=== PATIENT | male | born 1955 | race Caucasian/White ===

== ENCOUNTER → 2017-09-13 06:40 | Outpatient (CLI) | payer OTHER, SELFPAY ==
[2017-09-13 09:14] LABS: Alanine Aminotransferase 26 IU/L (21-72); Albumin 4.5 g/dL (3.5-5.0); Albumin Globulin Ratio 1.6 (1.0-2.8); Alkaline Phosphatase 52 U/L (38-126); Aspartate Aminotransferase 22 IU/L (17-59); BUN Creatinine Ratio 17.8 (6-22); Bilirubin Total 0.4 mg/dL (0.2-1.3); Blood Urea Nitrogen 16 mg/dL (9-20); Calcium 9.5 mg/dL (8.4-10.2); Carbon Dioxide 25 mmol/L (22-32); Chloride 100 mmol/L (98-107); Estimated Glomerular Filt Rate > 60.0 mL/min (>60); Globulin 2.8 g/dL (1.7-4.1); Glucose 139 mg/dL (80-110); HEMOLYSIS < 15 (0-50); Potassium 4.7 mmol/L (3.4-5.1); Sodium 136 mmol/L (137-145); Total Protein 7.3 g/dL (6.3-8.2)
[2017-09-13 11:36] LABS: Hemoglobin A1C% w Est Avg Glu 5.7 % (4.0-6.0)
== END ==
PROVIDERS: PCP Internal Medicine; Visit Provider Internal Medicine
DX: E78.2 Mixed hyperlipidemia (principal); E11.65 Type 2 diabetes mellitus with hyperglycemia
CPT/HCPCS: 36415; 80053; 83036

== ENCOUNTER → 2018-02-02 06:46 | Outpatient (CLI) | payer OTHER, SELFPAY ==
[2018-02-02 08:12] LABS: Alanine Aminotransferase 26 IU/L (21-72); Albumin 4.8 g/dL (3.5-5.0); Alkaline Phosphatase 50 U/L (38-126); Aspartate Aminotransferase 22 IU/L (17-59); BUN Creatinine Ratio 12.9 (6-22); Bilirubin Total 0.6 mg/dL (0.2-1.3); Blood Urea Nitrogen 9 mg/dL (9-20); Calcium 9.9 mg/dL (8.4-10.2); Carbon Dioxide 26 mmol/L (22-32); Chloride 98 mmol/L (98-107); Estimated Glomerular Filt Rate > 60.0 mL/min (>60); Globulin 2.4 g/dL (1.7-4.1); Glucose 107 mg/dL (80-110); HEMOLYSIS < 15 (0-50); Hemoglobin A1C% w Est Avg Glu 7.5 % (4.0-6.0); Sodium 136 mmol/L (137-145); Total Protein 7.2 g/dL (6.3-8.2)
== END ==
PROVIDERS: PCP Internal Medicine; Visit Provider Internal Medicine
DX: E11.9 Type 2 diabetes mellitus without complications (principal)
CPT/HCPCS: 36415; 80053; 83036

== ENCOUNTER → 2018-05-03 06:43 | Outpatient (CLI) | payer OTHER, SELFPAY ==
[2018-05-03 08:36] LABS: Hemoglobin A1C% w Est Avg Glu 6.6 % (4.0-6.0)
[2018-05-03 08:49] LABS: Blood Urea Nitrogen 9 mg/dL (9-20); Calcium 9.5 mg/dL (8.4-10.2); Carbon Dioxide 25 mmol/L (22-32); Chloride 100 mmol/L (98-107); Estimated Glomerular Filt Rate > 60.0 mL/min (>60); Glucose 121 mg/dL (80-110); HEMOLYSIS < 15 (0-50); Potassium 4.4 mmol/L (3.4-5.1); Sodium 136 mmol/L (137-145)
== END ==
PROVIDERS: PCP Internal Medicine; Visit Provider Internal Medicine
DX: E11.65 Type 2 diabetes mellitus with hyperglycemia (principal); I10 Essential (primary) hypertension
CPT/HCPCS: 36415; 80048; 83036

== ENCOUNTER 2018-06-25 07:28 | Day surgery (SDC) | payer OTHER, SELFPAY ==
[2018-06-25] MEDS: SODIUM CHLORIDE 0.9% 1,000 ML 200 ML IV (07:50)
[2018-06-25 07:51] VITALS: BP 150/83; PULSE 76; RESP 16; TEMP 36.3; O2SAT 100; BMI 20.8
--- NOTE | 2018-06-25 08:40 | PM.HP.1 ---
History of Present Illness Date Patient Seen: 06/25/18 Time Patient Seen: 08:40 Chief complaint: [id number] Narrative: 63yo M for low risk screening colonoscopy. Says he had trouble with the prep as he is not used to the volume of liquid. He never plans to do this again because it is such a pain. Had a scope around 10 years ago and thinks they were unable to complete it due to diverticulosis but is unsure. No symptoms, no family h/o CRC. Patient History Medical History Seasonal allergies (Acute) Diabetes mellitus (Chronic) Diverticular disease (Chronic) Hyperlipidemia (Chronic) Hypertension (Chronic) Surgical History H/O umbilical hernia repair (Acute) History of colonoscopy (Acute) Status post tonsillectomy and adenoidectomy Social History household members: spouse Smoking Status: Current every day smoker Family & Social History Social History: household members spouse Tobacco & Substance use: Smoking Status Current every day smoker Meds Home Medications Medication Instructions Recorded Confirmed Type aspirin 81 mg tablet,delayed 81 mg PO DAILY #180 tab 03/07/18 06/25/18 Rx release atorvastatin 80 mg tablet 80 mg PO QDAY #180 tab 03/07/18 06/25/18 Rx lisinopril 10 mg tablet 10 mg PO QDAY #180 tab 03/07/18 06/25/18 Rx metformin 1,000 mg tablet 1,000 mg PO BIDCC #360 tab 03/07/18 06/25/18 Rx hydrocodone 5 mg-acetaminophen 325 1 - 2 tab PO Q4H PRN #60 tab 05/29/18 06/25/18 Rx mg tablet Allergies Allergy/AdvReac Type Severity Reaction Status Date / Time No Known Allergies Allergy Unknown Verified 06/25/18 08:04 [NO KNOWN ALLERGIES] Review of Systems Constitutional Constitutional: Reports as per HPI Exam Vital Signs (past 8 hours): - 06/25/18 07:51 Temperature 97.4 F L Pulse Rate 76 Respiratory Rate 16 Blood Pressure 150/83 H Pulse Oximetry 100 Oxygen Delivery Method Room Air Narrative Exam Narrative: AAO, NAD, male of healthy weight EOMI, MMM unlabored RA soft, nt/nd MAEW Assessment & Plan Assessment & Plan narrative: low risk screening colonoscopy --> all R/B/A discussed and pt wishes to proceed - if prep and/ or severe diverticulosis do confound the exam, I assured pt we will stop rather than risk injury
[2018-06-25] MEDS: GLUCAGON,HUMAN RECOMBINANT 1 MG/ML VIAL IV (09:06)
[2018-06-25] MEDS: MIDAZOLAM 5 MG/5 ML VIAL IV (09:16)
[2018-06-25] MEDS: fentaNYL 250 MCG/5 ML INJ IV (09:16)
[2018-06-25 09:18] VITALS: BP 151/70; PULSE 72; RESP 13; TEMP 36.4; O2SAT 98
[2018-06-25 09:23] VITALS: BP 133/72; PULSE 71; RESP 13; O2SAT 98
--- NOTE | 2018-06-25 09:23 | SUR.PHASEI ---
bedside report given to JADIEL Navarrete. transferred care of pt to JADIEL Navarrete at this time.
[2018-06-25 09:28] VITALS: BP 131/66; PULSE 70; RESP 23; O2SAT 98
[2018-06-25 09:35] VITALS: BP 137/73; PULSE 69; TEMP 37; O2SAT 98
--- NOTE | 2018-06-25 11:24 | PM.OP.ENDO ---
Operative Date/Time/Diagnoses Date of procedure: 06/25/18 Time of procedure: 09:20 Pre-op diagnosis: low risk screening colonoscopy Post-op diagnosis: other (flexible sigmoidoscopy) Procedure & Clinicians Study performed: Flexible Sigmoidoscopy Same procedure as scheduled: Yes Indications: 63yo M with over 10 years since last screening colonoscopy. He says he had trouble with the prep and was not able to take nearly all of it in. He also says at his last scope he thinks they had to abort due to diverticulosis. Surgeon: Keren Jane Procedure Notes SCOAP/Timeout: 843 Procedure in detail: After obtaining informed consent, the patient was brought to the GI suite and placed in the left lateral decubitus position on the examination table. After placement of appropriate monitors, the patient was given incremental doses of Versed and Fentanyl until an appropriate level of sedation was achieved. A time out was held per SCOAP protocol. A digital rectal examination was performed and did not reveal any masses or obstructing lesions. The colonoscope was gently passed into the patient's anus. Prep was poor and the cummins were coated with semi-solid stool. Pt had significant spasm of his anal sphincter and colon which made progress difficult. We also encountered severe diverticulosis in the sigmoid colon. Glucagon was administered but did little to help the spasm. After prolonged attempts, the procedure was aborted due to concerns for safety and ability to adequately complete the procedure. At the level of the rectal vault, the scope was retroflexed and the internal anal canal was examined. The scope was straightened and air aspirated from the colon. The instrument was removed from the patient's body and the procedure was concluded. Radiology was called to request a same-day barium enema but they declined. The patient was allowed to awaken from sedation without difficulty and taken to the post-anesthesia care unit in good condition. Scope withdrawal time: n/a Sedation minutes: 28 Findings: diverticulosis (severe, sigmoid colon) Specimen(s): none sent Complications: none Impression: 1. severe diverticulosis of the sigmoid colon 2. inadequate prep 3. unable to safely or effectively proceed with colonoscopy Recommendations: Colonscopy in 1 year (I doubt pt will comply and given two aborted scopes the best option may be a BE.) and High fiber diet Follow up: weeks (2) Disposition: PACU
== END 2018-06-25 09:45 | disposition home or self-care (01) ==
PROVIDERS: PCP Internal Medicine; Visit Provider Surgery
PROC: 0DJD8ZZ Inspection of Lower Intestinal Tract, Via Natural or Artificial Opening Endoscopic (ICD-10-PCS; CPT 45378; principal; 2018-06-25 08:45)
DX: Z12.11 Encounter for screening for malignant neoplasm of colon (principal); Z53.09 Procedure and treatment not carried out because of other contraindication; K57.30 Diverticulosis of large intestine without perforation or abscess without bleeding; E11.9 Type 2 diabetes mellitus without complications; E78.5 Hyperlipidemia, unspecified; I10 Essential (primary) hypertension; F17.210 Nicotine dependence, cigarettes, uncomplicated; Z79.84 Long term (current) use of oral hypoglycemic drugs
CPT/HCPCS: 45378; 45330; 99152; 99153; J1610; J2250; J3010

== ENCOUNTER → 2018-08-07 06:45 | Outpatient (CLI) | payer OTHER, SELFPAY ==
[2018-08-07 08:55] LABS: Alanine Aminotransferase 23 IU/L (21-72); Albumin 4.5 g/dL (3.5-5.0); Albumin Globulin Ratio 1.8 (1.0-2.8); Alkaline Phosphatase 50 U/L (38-126); Aspartate Aminotransferase 22 IU/L (17-59); Bilirubin Total 0.6 mg/dL (0.2-1.3); Blood Urea Nitrogen 12 mg/dL (9-20); Carbon Dioxide 29 mmol/L (22-32); Chloride 100 mmol/L (98-107); Cholesterol 115 mg/dL (140-199); Estimated Glomerular Filt Rate > 60.0 mL/min (>60); Globulin 2.5 g/dL (1.7-4.1); Glucose 139 mg/dL (80-110); HDL Cholesterol 44 mg/dL (40-60); HEMOLYSIS < 15 (0-50); LDL Cholesterol Calculated 58 mg/dL (<100); Potassium 4.9 mmol/L (3.4-5.1); Sodium 136 mmol/L (137-145); Triglycerides 66 mg/dL (35-150)
[2018-08-07 09:03] LABS: Prostate Specific Antigen Scrn 0.493 ng/mL (0.1-4.0)
[2018-08-07 10:11] LABS: Hemoglobin A1C% w Est Avg Glu 6.6 % (4.0-6.0)
== END ==
PROVIDERS: PCP Internal Medicine; Visit Provider Internal Medicine
DX: E11.65 Type 2 diabetes mellitus with hyperglycemia (principal); I10 Essential (primary) hypertension; E78.2 Mixed hyperlipidemia; Z12.5 Encounter for screening for malignant neoplasm of prostate
CPT/HCPCS: 36415; 80053; 80061; 83036; G0103

== ENCOUNTER → 2019-01-21 06:50 | Outpatient (CLI) | payer MEDICARE, OTHER, SELFPAY ==
[2019-01-21 07:55] LABS: Hemoglobin A1C% w Est Avg Glu 7.4 % (4.0-6.0)
[2019-01-21 08:20] LABS: BUN Creatinine Ratio 11.4 (6-22); Blood Urea Nitrogen 8 mg/dL (9-20); Calcium 10.2 mg/dL (8.4-10.2); Carbon Dioxide 28 mmol/L (22-32); Chloride 97 mmol/L (98-107); Estimated Glomerular Filt Rate > 60.0 mL/min (>60); Glucose 130 mg/dL (80-110); HEMOLYSIS < 15 (0-50); Potassium 4.8 mmol/L (3.4-5.1); Sodium 135 mmol/L (137-145)
== END ==
PROVIDERS: PCP Internal Medicine; Visit Provider Internal Medicine
DX: E11.65 Type 2 diabetes mellitus with hyperglycemia (principal); I10 Essential (primary) hypertension; K57.30 Diverticulosis of large intestine without perforation or abscess without bleeding
CPT/HCPCS: 36415; 80048; 83036

== ENCOUNTER → 2019-04-18 06:50 | Outpatient (CLI) | payer MEDICARE, OTHER, SELFPAY ==
[2019-04-18 07:48] LABS: BUN Creatinine Ratio 14.3 (6-22); Blood Urea Nitrogen 10 mg/dL (9-20); Calcium 9.8 mg/dL (8.4-10.2); Carbon Dioxide 26 mmol/L (22-32); Chloride 98 mmol/L (98-107); Estimated Glomerular Filt Rate > 60.0 mL/min (>60); Glucose 157 mg/dL (80-110); HEMOLYSIS < 15 (0-50); Hemoglobin A1C% w Est Avg Glu 7.4 % (4.0-6.0); Potassium 4.8 mmol/L (3.4-5.1); Sodium 135 mmol/L (137-145)
== END ==
PROVIDERS: PCP Internal Medicine; Referring Provider Internal Medicine; Visit Provider Internal Medicine
DX: E11.65 Type 2 diabetes mellitus with hyperglycemia (principal)
CPT/HCPCS: 36415; 80048; 83036

== ENCOUNTER → 2019-08-23 06:41 | Outpatient (CLI) | payer MEDICARE, OTHER, SELFPAY ==
[2019-08-23 08:30] LABS: Hemoglobin A1C% w Est Avg Glu 7.5 % (4.0-6.0)
[2019-08-23 08:35] LABS: Alanine Aminotransferase 15 IU/L (<50); Albumin 4.5 g/dL (3.5-5.0); Albumin Globulin Ratio 1.7 (1.0-2.8); Alkaline Phosphatase 58 U/L (38-126); Aspartate Aminotransferase 25 IU/L (17-59); BUN Creatinine Ratio 23.9 (6-22); Bilirubin Total 0.5 mg/dL (0.2-1.3); Blood Urea Nitrogen 17 mg/dL (9-20); Calcium 9.6 mg/dL (8.4-10.2); Carbon Dioxide 27 mmol/L (22-32); Chloride 98 mmol/L (98-107); Cholesterol 115 mg/dL (140-199); Estimated Glomerular Filt Rate > 60.0 mL/min (>60); Globulin 2.7 g/dL (1.7-4.1); Glucose 144 mg/dL (80-110); HDL Cholesterol 34 mg/dL (40-60); HEMOLYSIS < 15 (0-50); LDL Cholesterol Calculated 67 mg/dL (<100); Potassium 4.5 mmol/L (3.4-5.1); Sodium 133 mmol/L (137-145); Total Protein 7.2 g/dL (6.3-8.2); Triglycerides 71 mg/dL (35-150)
== END ==
PROVIDERS: PCP Internal Medicine; Referring Provider Internal Medicine; Visit Provider Internal Medicine
DX: Z12.5 Encounter for screening for malignant neoplasm of prostate (principal); E11.65 Type 2 diabetes mellitus with hyperglycemia; E78.2 Mixed hyperlipidemia; I10 Essential (primary) hypertension
CPT/HCPCS: 36415; 80053; 80061; 83036; G0103

== ENCOUNTER → 2019-11-22 06:48 | Outpatient (CLI) | payer MEDICARE, OTHER, SELFPAY ==
[2019-11-22 08:17] LABS: Hemoglobin A1C% w Est Avg Glu 7.6 % (4.0-6.0)
[2019-11-22 08:23] LABS: BUN Creatinine Ratio 16.4 (6-22); Blood Urea Nitrogen 11 mg/dL (9-20); Calcium 10.2 mg/dL (8.4-10.2); Carbon Dioxide 28 mmol/L (22-32); Chloride 100 mmol/L (98-107); Estimated Glomerular Filt Rate > 60.0 mL/min (>60); Glucose 140 mg/dL (80-110); HEMOLYSIS < 15 (0-50); Potassium 5.2 mmol/L (3.4-5.1); Sodium 137 mmol/L (137-145)
== END ==
PROVIDERS: PCP Internal Medicine; Referring Provider Internal Medicine; Visit Provider Internal Medicine
DX: E11.9 Type 2 diabetes mellitus without complications (principal)
CPT/HCPCS: 36415; 80048; 83036

== ENCOUNTER → 2019-12-13 13:42 | Outpatient (CLI) | payer MEDICARE, OTHER, SELFPAY ==
--- NOTE | 2019-12-13 13:45 | DI.RAD.S_ITS ---
PROCEDURE: XR HIP W PEL IF DONE LT 2V INDICATIONS: L hip pain TECHNIQUE: AP pelvis with lateral view(s) of the left hip(s). COMPARISON: None. FINDINGS: Bones: No fractures or dislocations. Pelvic ring appears intact. No suspicious bony lesions. There is mild bilateral hip joint space narrowing. Soft tissues: The visualized bowel gas pattern is normal. No suspicious soft tissue calcifications. IMPRESSION: Mild bilateral hip osteoarthritis. Dictated by: Sharyn Torres M.D. on 12/13/2019 at 15:13 Approved by: Sharyn Torres M.D. on 12/13/2019 at 15:14
== END ==
PROVIDERS: PCP Internal Medicine; Referring Provider Internal Medicine; Visit Provider Internal Medicine
DX: M25.552 Pain in left hip (principal); M16.0 Bilateral primary osteoarthritis of hip
CPT/HCPCS: 73502

== ENCOUNTER → 2020-02-10 06:41 | Outpatient (CLI) | payer MEDICARE, OTHER, SELFPAY ==
[2020-02-10 08:33] LABS: Hemoglobin A1C% w Est Avg Glu 7.4 % (4.0-6.0)
[2020-02-10 09:03] LABS: BUN Creatinine Ratio 18.6 (6-22); Blood Urea Nitrogen 13 mg/dL (9-20); Calcium 9.6 mg/dL (8.4-10.2); Carbon Dioxide 30 mmol/L (22-32); Chloride 101 mmol/L (98-107); Estimated Glomerular Filt Rate > 60.0 mL/min (>60); Glucose 136 mg/dL (80-110); HEMOLYSIS < 15 (0-50); Potassium 4.4 mmol/L (3.4-5.1); Sodium 134 mmol/L (137-145)
== END ==
PROVIDERS: PCP Internal Medicine; Referring Provider Internal Medicine; Visit Provider Internal Medicine
DX: E11.65 Type 2 diabetes mellitus with hyperglycemia (principal)
CPT/HCPCS: 36415; 80048; 83036

== ENCOUNTER → 2020-06-22 06:48 | Outpatient (CLI) | payer MEDICARE, OTHER, SELFPAY ==
[2020-06-22 08:19] LABS: BUN Creatinine Ratio 19.7 (6-22); Blood Urea Nitrogen 13 mg/dL (9-20); Calcium 10.6 mg/dL (8.4-10.2); Carbon Dioxide 28 mmol/L (22-32); Chloride 100 mmol/L (98-107); Estimated Glomerular Filt Rate > 60.0 mL/min (>60); Glucose 168 mg/dL (80-110); HEMOLYSIS < 15 (0-50); Sodium 135 mmol/L (137-145)
[2020-06-22 08:20] LABS: Hemoglobin A1C% w Est Avg Glu 8.4 % (4.0-6.0)
[2020-06-22 08:21] LABS: Potassium 5.4 mmol/L (3.4-5.1)
== END ==
PROVIDERS: PCP Internal Medicine; Referring Provider Internal Medicine; Visit Provider Internal Medicine
DX: E11.65 Type 2 diabetes mellitus with hyperglycemia (principal); I10 Essential (primary) hypertension
CPT/HCPCS: 36415; 80048; 83036

== ENCOUNTER → 2020-09-18 06:43 | Outpatient (CLI) | payer MEDICARE, OTHER, SELFPAY ==
[2020-09-18 08:59] LABS: Hemoglobin A1C% w Est Avg Glu 7.8 % (4.0-6.0)
[2020-09-18 09:03] LABS: Alanine Aminotransferase 19 IU/L (<50); Albumin 4.5 g/dL (3.5-5.0); Albumin Globulin Ratio 1.6 (1.0-2.8); Alkaline Phosphatase 57 U/L (38-126); Aspartate Aminotransferase 32 IU/L (17-59); BUN Creatinine Ratio 23.6 (6-22); Bilirubin Total 0.6 mg/dL (0.2-1.3); Blood Urea Nitrogen 17 mg/dL (9-20); Calcium 9.9 mg/dL (8.4-10.2); Carbon Dioxide 26 mmol/L (22-32); Chloride 100 mmol/L (98-107); Cholesterol 118 mg/dL (140-199); Estimated Glomerular Filt Rate > 60.0 mL/min (>60); Globulin 2.8 g/dL (1.7-4.1); Glucose 136 mg/dL (80-110); HDL Cholesterol 39 mg/dL (40-60); HEMOLYSIS < 15 (0-50); LDL Cholesterol Calculated 64 mg/dL (<100); Potassium 4.9 mmol/L (3.4-5.1); Sodium 133 mmol/L (137-145); Total Protein 7.3 g/dL (6.3-8.2); Triglycerides 77 mg/dL (35-150)
[2020-09-18 09:36] LABS: Prostate Specific Antigen Scrn 0.524 ng/mL (0.1-4.0)
== END ==
PROVIDERS: PCP Internal Medicine; Referring Provider Internal Medicine; Visit Provider Internal Medicine
DX: E11.65 Type 2 diabetes mellitus with hyperglycemia (principal); I10 Essential (primary) hypertension; Z12.5 Encounter for screening for malignant neoplasm of prostate; E78.2 Mixed hyperlipidemia
CPT/HCPCS: 36415; 80053; 80061; 83036; G0103

== ENCOUNTER → 2020-12-21 06:56 | Outpatient (CLI) | payer MEDICARE, OTHER, SELFPAY ==
[2020-12-21 08:05] LABS: Hemoglobin A1C% w Est Avg Glu 7.6 % (4.0-6.0)
[2020-12-21 08:12] LABS: BUN Creatinine Ratio 16.7 (6-22); Blood Urea Nitrogen 11 mg/dL (9-20); Calcium 9.8 mg/dL (8.4-10.2); Carbon Dioxide 27 mmol/L (22-32); Chloride 100 mmol/L (98-107); Estimated Glomerular Filt Rate > 60.0 mL/min (>60); Glucose 150 mg/dL (80-110); HEMOLYSIS < 15 (0-50); Potassium 5.2 mmol/L (3.4-5.1); Sodium 134 mmol/L (137-145)
== END ==
PROVIDERS: PCP Internal Medicine; Referring Provider Internal Medicine; Visit Provider Internal Medicine
DX: E11.65 Type 2 diabetes mellitus with hyperglycemia (principal)
CPT/HCPCS: 36415; 80048; 83036

== ENCOUNTER → 2021-03-31 07:01 | Outpatient (CLI) | payer MEDICARE, OTHER, SELFPAY ==
[2021-03-31 08:28] LABS: Alanine Aminotransferase 19 IU/L (<50); Albumin 4.3 g/dL (3.5-5.0); Albumin Globulin Ratio 1.7 (1.0-2.8); Alkaline Phosphatase 48 U/L (38-126); Aspartate Aminotransferase 28 IU/L (17-59); BUN Creatinine Ratio 17.9 (6-22); Bilirubin Total 0.7 mg/dL (0.2-1.3); Blood Urea Nitrogen 12 mg/dL (9-20); Calcium 10.2 mg/dL (8.4-10.2); Carbon Dioxide 29 mmol/L (22-32); Chloride 98 mmol/L (98-107); Cholesterol 99 mg/dL (140-199); Estimated Glomerular Filt Rate > 60.0 mL/min (>60); Globulin 2.5 g/dL (1.7-4.1); Glucose 137 mg/dL (80-110); HDL Cholesterol 27 mg/dL (40-60); HEMOLYSIS < 15 (0-50); LDL Cholesterol Calculated 52 mg/dL (<100); Potassium 4.6 mmol/L (3.4-5.1); Sodium 132 mmol/L (137-145); Total Protein 6.8 g/dL (6.3-8.2); Triglycerides 101 mg/dL (35-150)
== END ==
PROVIDERS: PCP Internal Medicine; Referring Provider Internal Medicine; Visit Provider Internal Medicine
DX: E11.65 Type 2 diabetes mellitus with hyperglycemia (principal); I10 Essential (primary) hypertension; E78.2 Mixed hyperlipidemia
CPT/HCPCS: 36415; 80053; 80061; 83036

== ENCOUNTER → 2021-06-21 06:36 | Outpatient (CLI) | payer MEDICARE, OTHER, SELFPAY ==
[2021-06-21 09:28] LABS: Hemoglobin A1C% w Est Avg Glu 8.4 % (4.0-6.0)
[2021-06-21 09:39] LABS: BUN Creatinine Ratio 18.2 (6-22); Blood Urea Nitrogen 12 mg/dL (9-20); Calcium 9.4 mg/dL (8.4-10.2); Carbon Dioxide 26 mmol/L (22-32); Chloride 101 mmol/L (98-107); Estimated Glomerular Filt Rate > 60 mL/min (>60); Glucose 153 mg/dL (80-110); HEMOLYSIS < 15 (0-50); Potassium 4.7 mmol/L (3.4-5.1); Sodium 133 mmol/L (137-145)
== END ==
PROVIDERS: PCP Internal Medicine; Referring Provider Internal Medicine; Visit Provider Internal Medicine
DX: E11.9 Type 2 diabetes mellitus without complications (principal); I10 Essential (primary) hypertension; E78.2 Mixed hyperlipidemia
CPT/HCPCS: 36415; 80048; 83036

== ENCOUNTER → 2021-08-04 10:37 | Outpatient (CLI) | payer MEDICARE, OTHER, SELFPAY ==
--- NOTE | 2021-08-11 13:33 | DIAB.MNT ---
Initial Diabetes Medical Nutrition Therapy Assessment Name: Roger Roa Date: 08/04/21 Time: 11-9940a Provider: Yamile Dx: Type II Diabetes Preferred Learning Style: Listening, Watching, Reading Warren presents for initial visit regarding T2DM. States he has had DM for around 10 years. No reported FH of DM. Last hgA1c increased from 8% to 8.4%. Reports sometimes skipping Metformin, forgetting. This results in increased urination. Endorses current smoker (cigarettes). Reports needing help with diet. States he and his do not like to cook. High frequency of frozen and take out meals. Limited vegetable intake. Barrier is dentition. Has dentures. Finds it difficult to eat raw veggies. Veg must be soft, well cooked. Has lost significant wt since removal of teeth approx 6 years ago. UBW was 185# prior. Current wt 132#. Does not seem worried about wt loss. Diet Recall: 10a: banana or cereal with double sf mocha 12p: Keto bread sandwich 530p: pasta x 1.5c with prawns ; hamburger sn: +/- small bowl of chips or cheetos Beverages: 32oz coffee, 1-2 stevia sodas, no water Anthropometrics: Ht: 5'7 Wt: 132# Physical Activity: averages 6,000 steps per day. Use to get much more activity when he was walking golf course regularly. Now does not golf as often due to hip pain. Self-Monitoring Blood Glucose: None Diabetes Medications: Metformin 1000mg BID Pertinent Labs: HgA1c 8.4% 06/2021 Past Medical History: (Last Updated 07/17/19 @ 10:33 by Aristides Ovalle MD) BPH w urinary obs/LUTS Diverticular disease H/O umbilical hernia repair History of colonoscopy Hyperlipidemia Hypertension Insomnia Seasonal allergies Nutrition Rx: Plate Method Nutrition Diagnosis: - inadequate fiber intake r/t dentition and nutrition knowledge deficit aeb diet recall and pt report of limited whole grains and veggies - inadequate fluid intake r/t stage of change aeb diet recall indicating limited water - Suboptimal physical activity r/t hip pain as a barrier to usual activity aeb pt report - Self monitoring deficit r/t no rx or plan for SMBG aeb pt report Intervention: This participant was very receptive. Provided appropriate educational handouts. Discussed the following topics: Completed intake assessment. Discussed barriers to care. HgA1c, its correlation to blood glucose numbers, and rationale for goal Importance of self-monitoring, how often, and when to check. Suggested checking at different times to evaluate meals Plate Method, impact of macronutrients on blood sugar, meal timing, carbohydrate counting, pairing macronutrients and spreading out carbohydrates for better blood glucose management Recommended servings for carbohydrates at meals and snacks Role of physical activity and following provider guidelines for safety Created SMART goals for patient self-care and success. Goals: eat vegetables 1 x per day contact provider about smbg supplies Attend DSME class Follow-up: ARIS MAYA follow-up in 4 weeks for 1:1. Warren will also attend DSME 3 class series for August. Jessica Lynne RDN, [facility] Certified Diabetes Care and Geoint Analyst P: [phone] Thank you for this referral
== END ==
PROVIDERS: PCP Internal Medicine; Referring Provider Internal Medicine; Visit Provider Internal Medicine
DX: E11.9 Type 2 diabetes mellitus without complications (principal); Z79.84 Long term (current) use of oral hypoglycemic drugs; Z71.3 Dietary counseling and surveillance
CPT/HCPCS: 97802

== ENCOUNTER → 2021-08-10 09:26 | Outpatient (CLI) | payer MEDICARE, OTHER, SELFPAY ==
--- NOTE | 2021-08-12 17:27 | DIAB.FU ---
Diabetes Education Class Series: Diabetes and Nutrition Name: Roger Roa Date: 08/10/21 Time: [id number] Roger presents for class today with his , Arlet. States he has been working on getting his HgA1c down. Interested in SMBG. Class topics covered: ? Debunk nutrition myths and discuss how to sustain healthy eating long-term through moderation and variety ? Define macronutrients and determine their impact on blood sugars ? Discuss macronutrient pairing, Plate Method, and carb counting ? Review general recommendations for carbohydrates ? Practice label reading ? Discuss the role of fiber in diabetes and provide examples of sources ? Review heart health nutrition: fats, fiber, and sodium ? Determine recommendations for grocery shopping and eating out ? Discuss alcohol recommendations ? Review the role of substitute sugars in diabetes management ? 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
== END ==
PROVIDERS: PCP Internal Medicine; Referring Provider Internal Medicine; Visit Provider Internal Medicine
DX: E11.9 Type 2 diabetes mellitus without complications (principal); Z71.3 Dietary counseling and surveillance
CPT/HCPCS: G0109

== ENCOUNTER → 2021-08-17 09:39 | Outpatient (CLI) | payer MEDICARE, OTHER, SELFPAY ==
--- NOTE | 2021-08-17 16:38 | DIAB.FU ---
Follow-up Diabetes Education Assessment Name: Roger Roa Date: 08/17/21 Time: 940-11a Dx: Type II Diabetes Warren presents today for visit accompanied by his , Arlet. Since class was cancelled today, we will review a lot of the content in class 2 (risk reduction/diabetes pathophysiology/medications). States that he has been eating more vegetables and checking BG. Reports mostly low carb diet currently, which he does not seem pleased with. Seems he is trying to get HgA1c down as low as he can before next PCP visit and then we consider reincorporating some carbs. We did discuss moderation and sustainability. Still having difficulty with chewing with dentures. Not open at this time to a second opinion dentist. Self-Monitoring Blood Glucose: Reports all BG, even pc readings, <130 mg/dL. Checked a few FBG (110-115) and postprandial (states he knows they were <130). Seems readings are in goal. Diabetes Medications: 1000 mg Metformin BID Pertinent Labs: HgA1c 8.4% 06/2021 Past Medical History: (Last Updated 07/17/19 @ 10:33 by Aristides Ovalle MD) BPH w urinary obs/LUTS Diverticular disease Hyperlipidemia Hypertension Insomnia Seasonal allergies Intervention: This participant was very receptive. Provided appropriate educational handouts. Discussed the following topics: Diabetes pathophysiology Discuss different types of diabetes Review criteria for diagnosing diabetes Review HgA1c measurement and associated blood sugars Review blood sugar monitoring safety, technique, and goals Discuss ways to reduce complications associated with diabetes, includes microvascular and macrovascular complications Review diabetes medications types, action, and side effects Health care visits recommended for people with T2DM Immunization recommended for people with T2DM Moderation and sustainability of DM mgmgnt Potential for denture second opinion for quality of life with eating SMART goals review Goals: eat vegetables 1 x per day- improved contact provider about smbg supplies- met Attend DSME class- met/in progress Follow-up: Diabetes Lifestyle and Ongoing Support Class next week Jessica Lynne RDN, [facility] Certified Diabetes Care and Brake Operator [employer] P: [phone] Thank you for this referral
== END ==
PROVIDERS: PCP Internal Medicine; Referring Provider Internal Medicine; Visit Provider Internal Medicine
DX: E11.9 Type 2 diabetes mellitus without complications (principal); Z79.84 Long term (current) use of oral hypoglycemic drugs; Z71.3 Dietary counseling and surveillance
CPT/HCPCS: G0108

== ENCOUNTER → 2021-08-24 09:26 | Outpatient (CLI) | payer MEDICARE, OTHER, SELFPAY ==
--- NOTE | 2021-08-25 17:37 | DIAB.FU ---
Diabetes Education Class Series: Diabetes Lifestyle Change and Ongoing Support Name: Roger Roa Date: 08/24/21 Time: [id number] Warren seemed somewhat distracted in class. Limited participation. he attended with his , Arlet, and she was very interested in the info and had questions. Warren left one hour early. Reports making nutrition changes to reduce carb intake. Class topics covered: ? Discuss the difference between physical activity and exercise ? Determine physical activity benefits and impact on diabetes ? Review physical activity recommendations and safety ? Discuss diabetes and emotions (diabetes burnout/distress) Follow-up: ARIS MAYA follow-up 1:1 recommended. Will contact pt for follow-up. Jessica Lynne RDN, [facility] Certified Diabetes Care and Wood Ski Maker P: [phone] Thank you for this referral
== END ==
PROVIDERS: PCP Internal Medicine; Referring Provider Internal Medicine; Visit Provider Internal Medicine
DX: E11.9 Type 2 diabetes mellitus without complications (principal); Z71.3 Dietary counseling and surveillance
CPT/HCPCS: G0109

== ENCOUNTER → 2021-10-05 06:40 | Outpatient (CLI) | payer MEDICARE, OTHER, SELFPAY ==
[2021-10-05 09:17] LABS: Hemoglobin A1C% w Est Avg Glu 7.2 % (4.0-6.0)
[2021-10-05 09:31] LABS: BUN Creatinine Ratio 18.3 (6-22); Blood Urea Nitrogen 13 mg/dL (9-20); Calcium 9.4 mg/dL (8.4-10.2); Carbon Dioxide 28 mmol/L (22-32); Chloride 99 mmol/L (98-107); Estimated Glomerular Filt Rate > 60 mL/min (>60); Glucose 144 mg/dL (80-110); HEMOLYSIS < 15 (0-50); Potassium 4.6 mmol/L (3.4-5.1); Sodium 134 mmol/L (137-145)
== END ==
PROVIDERS: PCP Internal Medicine; Referring Provider Internal Medicine; Visit Provider Internal Medicine
DX: E11.65 Type 2 diabetes mellitus with hyperglycemia (principal); E78.2 Mixed hyperlipidemia; I10 Essential (primary) hypertension
CPT/HCPCS: 36415; 80048; 83036

== ENCOUNTER → 2022-01-12 06:48 | Outpatient (CLI) | payer MEDICARE, OTHER, SELFPAY ==
[2022-01-12 09:01] LABS: Hemoglobin A1C% w Est Avg Glu 8.1 % (4.0-6.0)
[2022-01-12 09:20] LABS: Alanine Aminotransferase 16 IU/L (<50); Albumin 4.5 g/dL (3.5-5.0); Albumin Globulin Ratio 1.5 (1.0-2.8); Alkaline Phosphatase 74 U/L (38-126); Aspartate Aminotransferase 20 IU/L (17-59); BUN Creatinine Ratio 19.3 (6-22); Bilirubin Total 0.6 mg/dL (0.2-1.3); Blood Urea Nitrogen 16 mg/dL (9-20); Calcium 9.9 mg/dL (8.4-10.2); Carbon Dioxide 27 mmol/L (22-32); Chloride 100 mmol/L (98-107); Estimated Glomerular Filt Rate > 60 mL/min (>60); Glucose 153 mg/dL (80-110); HEMOLYSIS < 15 (0-50); Potassium 4.7 mmol/L (3.4-5.1); Sodium 136 mmol/L (137-145); Total Protein 7.5 g/dL (6.3-8.2)
[2022-01-17 10:45] LABS: Creatinine Urine Random 63.7 mg/dL
[2022-01-17 10:48] LABS: Microalbumi Creatinin Ratio Ur 149.1 ug/mg CR (<30); Microalbumin Urine Random 9.5 mg/dL (0-1.6)
== END ==
PROVIDERS: PCP Internal Medicine; Referring Provider Internal Medicine; Visit Provider Internal Medicine
DX: E11.65 Type 2 diabetes mellitus with hyperglycemia (principal); E78.2 Mixed hyperlipidemia; I10 Essential (primary) hypertension
CPT/HCPCS: 36415; 80053; 82043; 82570; 83036

== ENCOUNTER → 2022-05-05 06:48 | Outpatient (CLI) | payer MEDICARE, OTHER, SELFPAY ==
[2022-05-05 08:30] LABS: Hemoglobin A1C% w Est Avg Glu 7.7 % (4.0-6.0)
[2022-05-05 08:55] LABS: BUN Creatinine Ratio 18.6 (6-22); Blood Urea Nitrogen 13 mg/dL (9-20); Calcium 9.4 mg/dL (8.4-10.2); Carbon Dioxide 28 mmol/L (22-32); Chloride 98 mmol/L (98-107); Estimated Glomerular Filt Rate > 60 mL/min (>60); Glucose 114 mg/dL (80-110); HEMOLYSIS < 15 (0-50); Potassium 4.4 mmol/L (3.4-5.1); Sodium 135 mmol/L (137-145)
== END ==
PROVIDERS: PCP Internal Medicine; Referring Provider Internal Medicine; Visit Provider Internal Medicine
DX: E11.9 Type 2 diabetes mellitus without complications (principal); E78.2 Mixed hyperlipidemia; I10 Essential (primary) hypertension
CPT/HCPCS: 36415; 80048; 83036

== ENCOUNTER → 2022-08-02 07:32 | Outpatient (CLI) | payer MEDICARE, OTHER, SELFPAY ==
[2022-08-02 09:16] LABS: Alanine Aminotransferase 17 IU/L (<50); Albumin 4.2 g/dL (3.5-5.0); Albumin Globulin Ratio 1.7 (1.0-2.8); Alkaline Phosphatase 60 U/L (38-126); Aspartate Aminotransferase 23 IU/L (17-59); BUN Creatinine Ratio 16.7 (6-22); Bilirubin Total 0.3 mg/dL (0.2-1.3); Blood Urea Nitrogen 12 mg/dL (9-20); Calcium 9.8 mg/dL (8.4-10.2); Carbon Dioxide 28 mmol/L (22-32); Chloride 101 mmol/L (98-107); Estimated Glomerular Filt Rate > 60 mL/min (>60); Globulin 2.5 g/dL (1.7-4.1); Glucose 161 mg/dL (80-110); HEMOLYSIS < 15 (0-50); Potassium 4.8 mmol/L (3.4-5.1); Sodium 136 mmol/L (137-145); Total Protein 6.7 g/dL (6.3-8.2)
[2022-08-03 02:07] LABS: x Labcorp Estim. Avg Glu (eAG) 183 mg/dL (.)
== END ==
PROVIDERS: PCP Internal Medicine; Referring Provider Internal Medicine; Visit Provider Internal Medicine
DX: E11.9 Type 2 diabetes mellitus without complications (principal); I10 Essential (primary) hypertension; E78.2 Mixed hyperlipidemia
CPT/HCPCS: 36415; 80053; 83036

== ENCOUNTER → 2022-11-01 06:43 | Outpatient (CLI) | payer MEDICARE, OTHER, SELFPAY ==
[2022-11-01 07:51] LABS: Hemoglobin A1C% w Est Avg Glu 9.1 % (4.0-6.0)
[2022-11-01 08:24] LABS: Alanine Aminotransferase 29 IU/L (<50); Albumin 4.2 g/dL (3.5-5.0); Albumin Globulin Ratio 1.6 (1.0-2.8); Alkaline Phosphatase 73 U/L (38-126); Aspartate Aminotransferase 24 IU/L (17-59); BUN Creatinine Ratio 18.6 (6-22); Bilirubin Total 0.5 mg/dL (0.2-1.3); Blood Urea Nitrogen 18 mg/dL (9-20); Calcium 9.5 mg/dL (8.4-10.2); Carbon Dioxide 27 mmol/L (22-32); Chloride 103 mmol/L (98-107); Estimated Glomerular Filt Rate > 60 mL/min (>60); Globulin 2.6 g/dL (1.7-4.1); Glucose 257 mg/dL (80-110); HEMOLYSIS < 15 (0-50); Potassium 4.7 mmol/L (3.4-5.1); Sodium 135 mmol/L (137-145); Total Protein 6.8 g/dL (6.3-8.2)
== END ==
PROVIDERS: PCP Internal Medicine; Referring Provider Internal Medicine; Visit Provider Internal Medicine
DX: E11.9 Type 2 diabetes mellitus without complications (principal); I10 Essential (primary) hypertension
CPT/HCPCS: 36415; 80053; 83036

== ENCOUNTER → 2023-01-30 06:40 | Outpatient (CLI) | payer MEDICARE, OTHER, SELFPAY ==
[2023-01-30 08:09] LABS: Hemoglobin A1C% w Est Avg Glu 8.3 % (4.0-6.0)
[2023-01-30 08:18] LABS: Alanine Aminotransferase 24 IU/L (<50); Albumin Globulin Ratio 1.6 (1.0-2.8); Alkaline Phosphatase 51 U/L (38-126); Aspartate Aminotransferase 26 IU/L (17-59); BUN Creatinine Ratio 15.5 (6-22); Bilirubin Total 0.8 mg/dL (0.2-1.3); Blood Urea Nitrogen 13 mg/dL (9-20); Calcium 9.9 mg/dL (8.4-10.2); Carbon Dioxide 27 mmol/L (22-32); Chloride 105 mmol/L (98-107); Estimated Glomerular Filt Rate > 60 mL/min (>60); Globulin 2.5 g/dL (1.7-4.1); Glucose 111 mg/dL (80-110); HEMOLYSIS < 15 (0-50); Potassium 4.9 mmol/L (3.4-5.1); Sodium 135 mmol/L (137-145); Total Protein 6.5 g/dL (6.3-8.2)
[2023-01-30 08:43] LABS: Prostate Specific Antigen Scrn 0.576 ng/mL (0.1-4.0)
[2023-01-30 10:33] LABS: Microalbumi Creatinin Ratio Ur 66.1 ug/mg CR (<30); Microalbumin Urine Random 3.9 mg/dL (0-1.6)
== END ==
PROVIDERS: PCP Internal Medicine; Referring Provider Internal Medicine; Visit Provider Internal Medicine
DX: Z12.5 Encounter for screening for malignant neoplasm of prostate (principal); I10 Essential (primary) hypertension; E11.9 Type 2 diabetes mellitus without complications; E78.2 Mixed hyperlipidemia
CPT/HCPCS: 36415; 80053; 82043; 82570; 83036; G0103

== ENCOUNTER 2023-04-16 12:41 | Inpatient (IN) | payer MEDICARE, OTHER, SELFPAY ==
[2023-04-16] VITALS (16 sets, daily range): BP systolic 130–172; BP diastolic 60–78; PULSE 63–117; RESP 17–23; TEMP 36.4–38.3; O2SAT 92–99; BMI 20.9
--- NOTE | 2023-04-16 12:55 | DI.RAD.S_ITS ---
PROCEDURE: XR CHEST 1V INDICATIONS: suspected sepsis TECHNIQUE: One view of the chest was acquired. COMPARISON: None. FINDINGS: Surgical changes and devices: None. Lungs and pleura: Lungs are clear. No pleural effusions or pneumothorax. Mediastinum: Mediastinal contours appear normal. Heart size is normal. Bones and chest wall: No suspicious bony lesions. Overlying soft tissues appear unremarkable. IMPRESSION: No acute cardiopulmonary pathology. Dictated by: Juan Calderon M.D. on 04/16/2023 at 13:22 Approved by: Juan Calderon M.D. on 04/16/2023 at 13:22
--- NOTE | 2023-04-16 13:01 | DI.CT.S_ITS ---
PROCEDURE: CT HEAD/BRAIN WO CON INDICATIONS: confused, fever, fall TECHNIQUE: Noncontrast 4.5 mm thick angled axial sections acquired from the foramen magnum to the vertex, with coronal and sagittal reformats. For radiation dose reduction, the following was used: automated exposure control, adjustment of mA and/or kV according to patient size. COMPARISON: None. FINDINGS: Image quality: Diagnostic. CSF spaces: Basal cisterns are patent. No extra-axial fluid collections. Ventricles are normal in size and shape. Brain: No midline shift. No intracranial masses or hemorrhage. Weiss-white matter interface is normal. Skull and face: Calvarium and visualized facial bones are intact, without suspicious lesions. Sinuses: Visualized sinuses and mastoids are clear. IMPRESSION: Atrophy and moderate white matter chronic ischemic change without intracranial hemorrhage or mass effect. Approved by: Manny Ahn M.D. on 04/16/2023 at 12:42
--- NOTE | 2023-04-16 13:11 | ED.FEVER ---
HPI - Fever General Chief Complaint: Fever Stated Complaint: hips hurt shaky Time Seen by Provider: 04/16/23 13:01 Source: patient, family, RN notes reviewed and old records reviewed Mode of arrival: Family Vehicle Limitations: altered mental status History of Present Illness HPI Narrative: 68-year-old male with a history of hypertension, dyslipidemia, diabetes with chronic hip pain. Patient presents started yesterday having difficulty getting answers out. denies any memory issues. She states she found him face down on the floor today and had a very difficult time getting him up. She states he has been sleeping not making sense. Last known normal described as last night. Patient can tell me his name he knows he is at the hospital and and [place] he thinks it is February. He tries to answer questions but does seem have difficulty. Patient is febrile here. Denies headaches, denies chest pain or shortness of breath. Does have some nausea. No reported vomiting at home. No recent diarrhea or constipation. No abdominal back or flank pain. Has chronic hip pain which has been present for several years. No new swelling of extremities. They describe some general weakness but no lateralizing weakness. No facial droop appreciated. Patient has multiple home medications for diabetes, dyslipidemia. is unsure of his medications. No reported surgeries. Does smoke regularly daily, no alcohol or recreational drugs. Known drug allergies. Follows with Dr. Ovalle as his primary care. Related Data Home Medications Medication Instructions Recorded Confirmed celecoxib 200 mg capsule 200 mg PO DAILY 04/16/23 04/16/23 glipizide 10 mg tablet, extended 10 mg PO DAILY 04/16/23 04/16/23 release 24 hr metformin 500 mg tablet 500 mg PO BID 04/16/23 04/16/23 Previous Rx's Medication Instructions Recorded aspirin 81 mg tablet,delayed 81 mg PO DAILY #180 tabs 01/15/19 release blood-glucose meter #1 ea 08/10/21 atorvastatin 80 mg tablet (Lipitor) 80 mg PO QDAY #90 tabs 07/28/22 lisinopril 10 mg tablet 10 mg PO QDAY #90 tabs 07/28/22 blood sugar diagnostic (Blood #100 ea 02/10/23 Glucose Test strips) lancets 33 gauge #100 ea 02/10/23 hydrocodone 5 mg-acetaminophen 325 1 - 2 tab PO Q4H PRN pain #60 tabs 03/21/23 mg tablet Allergies Allergy/AdvReac Type Severity Reaction Status Date / Time No Known Allergies Allergy Unknown Verified 04/16/23 12:45 [NO KNOWN ALLERGIES] Review of Systems Review of Systems ROS Unobtainable: All systems reviewed & are unremarkable except as noted in HPI and below Patient History Medical History Insomnia BPH w urinary obs/LUTS Seasonal allergies Diverticular disease Hypertension Hyperlipidemia Surgical History H/O umbilical hernia repair History of colonoscopy Status post tonsillectomy and adenoidectomy Social History household members: spouse Smoking Status: Current every day smoker alcohol intake: former Smoking Status: Current every day smoker Exam Narrative Exam Narrative: GEN: Thin male, alert and oriented to self and location, patient is alert does answer questions but has difficulty, patient appears to be in moderate distress. Patient feels slightly warm to the touch. HEENT: Atraumatic, pupils are equal round reactive to light, extraocular movements are intact, nares are clear, TMs are clear with no fluid, there is no conjunctival pallor. Throat is clear without any exudates, erythema, tonsillar enlargement or uvular deviation, no meningeal signs. HEART: Regular rate and rhythm without murmur, clicks, rubs. Pulses are equal in upper and lower extremities LUNGS:Lungs clear to auscultation, no wheezes, rales, crackles, chest moves symmetrically ABD:bowel sounds normal, soft, non-tender, no guarding, rebound, rigidity, no masses noted, no hepatosplenomegaly :No CVA tenderness MSCL: Non-tender, no muscle atrophy, muscles strength 5/5 upper and lower extremities, full range of motion. Patient is generally weak. NEURO:CN 2-12 intact, sensation normal, reflexes 2/4 upper and lower extremities. Patient has generalized tremor. SKIN: No rash, erythema or other skin changes noted Initial Vital Signs Initial Vital Signs: Vital Signs Temperature 100.6 F H 04/16/23 12:45 Pulse Rate 104 H 04/16/23 12:45 Respiratory Rate 18 04/16/23 12:45 Blood Pressure 137/78 04/16/23 12:45 Pulse Oximetry 99 04/16/23 12:45 Oxygen Delivery Method Room Air 04/16/23 12:45 Scores GCS Jocelyn coma scale eye opening: Spontaneous [place] coma scale verbal response: Confused [place] coma scale motor response: Obey commands Jocelyn coma scale total score: 14 Course Orders Ordered: Acetaminophen (Acetaminophen 325 Mg Tablet) 650 mg PO Q6H PRN PRN Reason: Fever/Mild Pain (1-3) Hydrocodone Bitart/Acetaminophen (Hydrocodone/Acet 5/325 Tablet) 1 tab PO Q4H PRN PRN Reason: Pain, Moderate (4-6) Al Hydrox/Mg Hydrox/Simethicone (Mag Hydrox/Alum/Simeth 30 Ml Udc) 30 ml PO Q6HR PRN PRN Reason: Dyspepsia Aspirin (Aspirin Ec 81 Mg Tablet) 81 mg PO DAILY [facility] Atorvastatin Calcium (Atorvastatin 20 Mg Tablet) 80 mg PO DAILY [facility] Last Admin: 04/16/23 17:43 Dose: 80 mg Documented By: BRITTA Bisacodyl (Bisacodyl 10 Mg Supp) 10 mg TX DAILY PRN PRN Reason: Constipation Calcium Carbonate (Calcium Carbonate 500 Mg Tab) 1,000 mg PO Q4HR PRN PRN Reason: Dyspepsia Docusate Sodium (Docusate 100 Mg Capsule) 100 mg PO BID [facility] Last Admin: 04/16/23 21:03 Dose: Not Given Documented By: ANA Enoxaparin Sodium (Enoxaparin 40 Mg/0.4 Ml Syringe) 40 mg SUBCUT DAILY [facility] Sodium Chloride (Normal Saline 0.9%) 1,000 mls @ 100 mls/hr IV CONT [facility] Last Admin: 04/17/23 04:14 Dose: 100 mls/hr Documented By: Infusion: 04/17/23 03:43 Dose: Infused Documented By: Admin: 04/16/23 17:43 Dose: 100 mls/hr Documented By: BRITTA Ceftriaxone Sodium 1,000 mg/ (Sodium Chloride) 100 mls @ 200 mls/hr IV Q24H [facility] Dextrose (D10w) 100 mls @ 1,200 mls/hr IV PRN PRN PRN Reason: Hypoglycemia Insulin Human Lispro (Insulin Lispro 100 Unit/Ml 3ml Vial) 0 unit SUBCUT ACHS [facility]; Protocol Last Admin: 04/16/23 21:03 Dose: 1 unit Documented By: ANA Co-signed By: RANJIT Admin: 04/16/23 16:57 Dose: Not Given Documented By: BRITTA Lisinopril (Lisinopril 10 Mg Tablet) 10 mg PO DAILY [facility] Last Admin: 04/16/23 17:43 Dose: 10 mg Documented By: BRITTA Metformin HCl (Metformin Hcl 500 Mg Tablet) 1,000 mg PO BID [facility] Last Admin: 04/16/23 21:03 Dose: Not Given Documented By: ANA Naloxone HCl (Naloxone 0.4 Mg/Ml Vial) 0.2 mg IV Q2MIN PRN PRN Reason: Opiate Reversal Ondansetron HCl (Ondansetron 4 Mg Odt) 4 mg SL NOW PRN PRN Reason: Nausea And Vomiting Ondansetron HCl (Ondansetron 4 Mg/2 Ml Inj) 4 mg IV Q8HR PRN PRN Reason: Nausea And Vomiting Ondansetron HCl (Ondansetron 4 Mg Odt) 4 mg PO Q8HR PRN PRN Reason: Nausea And Vomiting Discontinued Medications Acetaminophen (Acetaminophen 325 Mg Tablet) 975 mg PO NOW ONE Stop: 04/16/23 13:19 Last Admin: 04/16/23 13:39 Dose: 975 mg Documented By: BULMARO Sodium Chloride (Normal Saline 0.9%) 1,000 mls @ 1,000 mls/hr IV BOLUS ONE Stop: 04/16/23 13:54 Last Admin: 04/16/23 14:03 Dose: Not Given Documented By: BULMARO Sodium Chloride (Normal Saline 0.9%) 1,983 mls @ 661 mls/hr 30 ml/kg infuse over 3 hr (1983 ml) IV NOW ONE Stop: 04/16/23 16:00 Last Infusion: 04/16/23 16:32 Dose: 661 mls/hr Documented By: Infusion: 04/16/23 16:32 Dose: 661 mls/hr Documented By: Infusion: 04/16/23 16:29 Dose: 461 mls/hr Documented By: Infusion: 04/16/23 13:30 Dose: 461 mls/hr Documented By: Infusion: 04/16/23 13:16 Dose: 0 mls/hr Documented By: Admin: 04/16/23 13:15 Dose: 661 mls/hr Documented By: BULMARO Ceftriaxone Sodium 2,000 mg/ (Sodium Chloride) 100 mls @ 200 mls/hr IV NOW ONE Stop: 04/16/23 13:30 Last Infusion: 04/16/23 14:27 Dose: Infused Documented By: Admin: 04/16/23 13:39 Dose: 200 mls/hr Documented By: BULMARO Ibuprofen (Ibuprofen 400 Mg Tablet) 800 mg PO NOW ONE Stop: 04/16/23 15:17 Last Admin: 04/16/23 15:51 Dose: 800 mg Documented By: EDUARDO Non-Formulary Medication (Glipizide) 10 mg PO DAILY [facility] Ondansetron HCl (Ondansetron 4 Mg/2 Ml Inj) 4 mg IV NOW PRN PRN Reason: Nausea And Vomiting Last Admin: 04/16/23 13:13 Dose: 4 mg Documented By: BULMARO Vital Signs Vital signs: Vital Signs - 8 hr 04/16/23 12:45 04/16/23 12:58 04/16/23 13:00 Temperature 100.6 F H Pulse Rate 104 H 103 H Respiratory Rate 18 Blood Pressure 137/78 172/78 H Pulse Oximetry 99 99 Oxygen Delivery Method Room Air 04/16/23 13:00 04/16/23 13:29 04/16/23 13:29 Temperature Pulse Rate 117 H 100 H Respiratory Rate 23 22 Blood Pressure 135/66 Pulse Oximetry 98 96 Oxygen Delivery Method 04/16/23 13:30 04/16/23 13:30 04/16/23 13:39 Temperature 100.6 F H Pulse Rate 98 H Respiratory Rate 17 Blood Pressure 138/63 Pulse Oximetry 97 Oxygen Delivery Method 04/16/23 14:00 04/16/23 14:00 04/16/23 14:30 Temperature Pulse Rate 94 H 92 H Respiratory Rate 21 22 Blood Pressure 141/72 H Pulse Oximetry 98 98 Oxygen Delivery Method Room Air 04/16/23 14:30 04/16/23 15:00 04/16/23 15:00 Temperature Pulse Rate 90 Respiratory Rate 21 Blood Pressure 158/65 H 139/64 Pulse Oximetry 98 Oxygen Delivery Method Room Air 04/16/23 15:16 04/16/23 15:16 Temperature 100.9 F H 100.9 F H Pulse Rate Respiratory Rate Blood Pressure Pulse Oximetry Oxygen Delivery Method MDM - Fever Lab Data 04/17/23 04:54 04/17/23 04:54 Labs: Lab Results 04/16/23 04/16/23 04/16/23 Range/Units 13:04 15:05 15:13 WBC 17.7 H (4.5-11.0) X10^3/uL RBC 4.22 L (4.5-5.9) X10^6/uL Hgb 13.3 L (13.5-17.5) g/dL Hct 39.8 L (41-53) % MCV 94.4 (80-100) fL MCH 31.6 (26-34) PG MCHC 33.4 (30-36) % RDW 14.2 (11.6-14.8) % Plt Count 254 (150-400) X10^3/uL Neut % (Auto) 94.6 H (50-75) % Lymph % (Auto) 3.6 L (25-40) % [place] % (Auto) 1.6 L (3-14) % Eos % (Auto) 0.0 L (2-4) % Baso % (Auto) 0.2 (0-2) % Neut # (Auto) 80840 H (6920-6423) /uL Lymph # (Auto) 600 L (6873-2072) /uL [place] # (Auto) 300 (0-900) /uL Eos # (Auto) 0 (0-450) /uL Baso # (Auto) 0 (0-100) /uL PT 12.3 (9.4-12.5) SECONDS INR 1.1 (0.9-1.3) APTT 36 (25.1-36.5) SECONDS Sodium 136 L (137-145) mmol/L Potassium 4.3 (3.4-5.1) mmol/L Chloride 100 (98-107) mmol/L Carbon Dioxide 18 L (22-32) mmol/L BUN 22 H (9-20) mg/dL Creatinine 0.77 (0.66-1.25) mg/dL Estimated GFR > 60 (>60) mL/min BUN/Creatinine Ratio 28.6 H (6-22) Glucose 190 H (80-110) mg/dL Lactate 6.2 H* 3.2 H (0.7-2.1) mmol/L Calcium 9.7 (8.4-10.2) mg/dL Total Bilirubin 0.8 (0.2-1.3) mg/dL AST 88 H (17-59) IU/L ALT 44 (<50) IU/L Alkaline Phosphatase 54 (38-126) U/L Total Creatine Kinase 2253 H (55-170) U/L Troponin I < 0.012 (0.01-0.034) ng/mL NT-Pro-B Natriuret Pep 1260 H (<125) pg/mL Total Protein 7.9 (6.3-8.2) g/dL Albumin 4.8 (3.5-5.0) g/dL Globulin 3.1 (1.7-4.1) g/dL Albumin/Globulin Ratio 1.5 (1.0-2.8) Lipase 32 (23-300) U/L Procalcitonin 1.33 H (<0.5) ng/mL Urine Color Yellow Urine Appearance Cloudy Urine pH 6.0 (4.5-8.0) Ur Specific [place] 1.020 (1.000-1.035) Urine Protein 2+ H (Negative) Urine Glucose (UA) Negative (Negative) g/dL Urine Ketones Trace H (NEGATIVE) Urine Occult Blood 3+ H (Negative) Urine Nitrate Negative (Negative) Urine Bilirubin Negative (NEGATIVE) Urine Urobilinogen 1.0 (0.2) E.U./dL Ur Leukocyte Esterase 1+ H (NEGATIVE) Urine RBC 1-5/hpf (0-5/HPF) Urine WBC 30-100/hpf H (0-5/HPF) Ur Squamous Epith Cells 1-5 /hpf (0-5/HPF) Urine Bacteria Many (>30) H (None) Ur Culture Indicated? Specimen cultured Vol Urine Centrifuged 10ml (spun) Chlamy pneumoniae PCR Not detected (Not Detect) Adenovirus (PCR) Not detected (Not Detect) B.parapertussis DNA PCR Not detected (Not Detecte) Coronavirus OC43 (PCR) Not detected (Not Detect) Coronavirus HKU1 (PCR) Not detected (Not Detect) Coronavirus 229E (PCR) Not detected (Not Detect) SARS-CoV-2 (PCR) Not detected (Not Detecte) Coronavirus NL63 (PCR) Not detected (Not Detect) Human Metapneumovir PCR Not detected (Not Detect) Influenza Type A (PCR) Not detected (Not Detect) Influenza Type B (PCR) Not detected (Not Detect) M. pneumoniae (PCR) Not detected (Not Detect) Parainfluenza 1 (PCR) Not detected (Not Detect) Parainfluenza 2 (PCR) Not detected (Not Detect) Parainfluenza 3 (PCR) Not detected (Not Detect) Parainfluenza 4 (PCR) Not detected (Not Detect) RSV (PCR) Not detected (Not Detect) Entero/Rhino (PCR) Not detected (Not Detect) Point of Care Testing Glucose POC [address] scan - head: Radiologist's Impression: Close Head CT (Signed) Manny Ahn - 04/16/23 Chest X-Ray (Signed) Juan Calderon - 04/16/23 Hip X-Ray (Signed) Sharyn Torres - 12/13/19 Telemetry Strips 06/25/18 Launch?[place] [address] CT Scan Report Signed Patient: Roger Roa MR#: [id number] : 1955 Acct:[id number] Age/Sex: 68 / M Date of Service: 04/16/23 Loc: ED Accession Number: [id number] Procedure: CT head/brain wo con Ordering Provider: Silvia Kline D.O. PROCEDURE: CT HEAD/BRAIN WO CON INDICATIONS: confused, fever, fall TECHNIQUE: Noncontrast 4.5 mm thick angled axial sections acquired from the foramen magnum to the vertex, with coronal and sagittal reformats. For radiation dose reduction, the following was used: automated exposure control, adjustment of mA and/or kV according to patient size. COMPARISON: None. FINDINGS: Image quality: Diagnostic. CSF spaces: Basal cisterns are patent. No extra-axial fluid collections. Ventricles are normal in size and shape. Brain: No midline shift. No intracranial masses or hemorrhage. Weiss-white matter interface is normal. Skull and face: Calvarium and visualized facial bones are intact, without suspicious lesions. Sinuses: Visualized sinuses and mastoids are clear. IMPRESSION: Atrophy and moderate white matter chronic ischemic change without intracranial hemorrhage or mass effect. Approved by: Manny Ahn M.D. on 04/16/2023 at 12:42 Chest x-ray: Radiologist's Impression: Close Head CT (Signed) Manny Ahn - 04/16/23 Chest X-Ray (Signed) Juan Calderon - 04/16/23 Hip X-Ray (Signed) Sharyn Torres - 12/13/19 Telemetry Strips 06/25/18 Launch?[address] [address] XRay Report Signed Patient: Roger Roa MR#: [id number] : 1955 Acct:[id number] Age/Sex: 68 / M Date of Service: 04/16/23 Loc: ED Accession Number: [id number] Procedure: XR chest 1V Ordering Provider: Silvia Kline D.O. PROCEDURE: XR CHEST 1V INDICATIONS: suspected sepsis TECHNIQUE: One view of the chest was acquired. COMPARISON: None. FINDINGS: Surgical changes and devices: None. Lungs and pleura: Lungs are clear. No pleural effusions or pneumothorax. Mediastinum: Mediastinal contours appear normal. Heart size is normal. Bones and chest wall: No suspicious bony lesions. Overlying soft tissues appear unremarkable. IMPRESSION: No acute cardiopulmonary pathology. Dictated by: Juan Calderon M.D. on 04/16/2023 at 13:22 Approved by: Juan Calderon M.D. on 04/16/2023 at 13:22 ECG Data Attestation: I personally reviewed and interpreted this ECG as follows: Interpretation: Sinus rhythm occasional PVC rate of 100 TX 154 QRS of 90 QTC of 456. No acute ST elevation, patient does have PVC clear depression appreciated. MDM Narrative Medical decision making narrative: 68-year-old male with history of hypertension, diabetes, dyslipidemia, no reported memory issues who arrives with some confusion, increasing over the last day or so, generalized weakness, shaking with rigors and fever here in the department. Labs leukocytosis of 17 hemoglobin of 13.3 consistent with priors from 2012 leftward shift, neutrophils 94%. EKG coags are negative. Chemistry shows a sodium of 136 CO2 18 BUN 22 creatinine 0.77, glucose of 190 initial lactate is 6.2, bilirubin 0.8, ALT is 44, total CK is 2253. Troponins negative with a BNP of 12 60. Lipase is 32 with a protocol of 1.[address] shows no acute change. Chest x-ray is negative as well Urine consistent with infection, 3+ blood, 1+ leukocyte esterase, 30-100 WBCs 1-5 RBCs, many bacteria. Respiratory panel is negative Patient had 30 cc/kilos bolus ordered, patient was covered initially with a dose of Rocephin. Tylenol p.o. for fever. On recheck patient is alert but does seem confused. His describes this as being new and not having any baseline dementia or memory issues. Discussed with patient and family although patient did not seem to understand well that if urine does not show clear signs of infection lumbar puncture would be step. UA appears consistent with infection. Cultures are pending for UA and blood cultures. Spoke with Dr. Fink, accepts for inpatient. Discharge Plan Departure Patient Disposition: Admitted As Inpatient Clinical Impression: Acute UTI, Sepsis, Acidosis, lactic Admit Date/Time: 04/16/23 15:57 Admit Provider: Kody Fink
[2023-04-16] MEDS: ONDANSETRON 4 MG/2 ML INJ IV (13:13)
[2023-04-16] MEDS: SODIUM CHLORIDE 0.9% 1,983 ML 661 ML IV (13:15)
[2023-04-16 13:20] LABS: Add Manual Diff / Slide Review NO; Basophils Absolute Auto 0 /uL (0-100); Basophils Percent Auto 0.2 % (0-2); Eosinophils Absolute Auto 0 /uL (0-450); Hematocrit 39.8 % (41-53); Hemoglobin 13.3 g/dL (13.5-17.5); Lymphocytes Absolute Auto 600 /uL (1100-4500); Lymphocytes Percent Auto 3.6 % (25-40); Mean Corpuscular HGB Conc 33.4 % (30-36); Mean Corpuscular Hemoglobin 31.6 PG (26-34); Mean Corpuscular Volume 94.4 fL (80-100); Monocytes Absolute Auto 300 /uL (0-900); Monocytes Percent Auto 1.6 % (3-14); Neutrophils Absolute Auto 16700 /uL (1500-7000); Neutrophils Percent Auto 94.6 % (50-75); Platelet Count 254 X10^3/uL (150-400); Red Blood Cell Count 4.22 X10^6/uL (4.5-5.9); Red Cell Distribution Width 14.2 % (11.6-14.8); White Blood Cell Count 17.7 X10^3/uL (4.5-11.0)
[2023-04-16 13:33] LABS: INR 1.1 (0.9-1.3); Prothrombin Time 12.3 SECONDS (9.4-12.5)
[2023-04-16 13:35] LABS: Lipase 32 U/L (23-300)
[2023-04-16 13:36] LABS: PTT Partial Thromboplastin Tim 36 SECONDS (25.1-36.5)
[2023-04-16 13:37] LABS: Albumin 4.8 g/dL (3.5-5.0); Albumin Globulin Ratio 1.5 (1.0-2.8); Alkaline Phosphatase 54 U/L (38-126); BUN Creatinine Ratio 28.6 (6-22); Bilirubin Total 0.8 mg/dL (0.2-1.3); Blood Urea Nitrogen 22 mg/dL (9-20); Calcium 9.7 mg/dL (8.4-10.2); Carbon Dioxide 18 mmol/L (22-32); Chloride 100 mmol/L (98-107); Estimated Glomerular Filt Rate > 60 mL/min (>60); Globulin 3.1 g/dL (1.7-4.1); Glucose 190 mg/dL (80-110); HEMOLYSIS < 15 (0-50); Potassium 4.3 mmol/L (3.4-5.1); Sodium 136 mmol/L (137-145); Total Protein 7.9 g/dL (6.3-8.2)
[2023-04-16] MEDS: ACETAMINOPHEN 325 MG TABLET 975 MG PO (13:39)
[2023-04-16] MEDS: cefTRIAXone 2,000 MG in SODIUM CHLORIDE 0.9% 100 ML 200 MG IV (13:39)
[2023-04-16 13:45] LABS: Lactate (Lactic Acid) 6.2 mmol/L (0.7-2.1); NT-proBNP (BNP-Adult 18+) 1260 pg/mL (<125)
[2023-04-16 13:49] LABS: Troponin I < 0.012 ng/mL (0.01-0.034)
[2023-04-16 13:53] LABS: Procalcitonin 1.33 ng/mL (<0.5)
[2023-04-16 14:07] LABS: Alanine Aminotransferase 44 IU/L (<50); Creatine Kinase 2253 U/L (55-170)
[2023-04-16 14:10] LABS: Adenovirus Not Detected (Not Detect); B. parapertussis Not Detected (Not Detecte); Bordetella pertussis Not Detected (Not Detect); Chlamydophila pneumoniae Not Detected (Not Detect); Coronavirus 229E Not Detected (Not Detect); Coronavirus HKU1 Not Detected (Not Detect); Coronavirus NL 63 Not Detected (Not Detect); Coronavirus OC43 Not Detected (Not Detect); Human Metapneumovirus Not Detected (Not Detect); Human Rhinovirus/Enterovirus Not Detected (Not Detect); Influenza A Not Detected (Not Detect); Influenza B Not Detected (Not Detect); Mycoplasma pneumoniae Not Detected (Not Detect); Parainfluenza Virus 1 Not Detected (Not Detect); Parainfluenza Virus 2 Not Detected (Not Detect); Parainfluenza Virus 3 Not Detected (Not Detect); Parainfluenza Virus 4 Not Detected (Not Detect); Respiratory Syncytial Virus Not Detected (Not Detect); SARS- CoV-2 Not Detected (Not Detecte)
[2023-04-16 14:28] LABS: Aspartate Aminotransferase 88 IU/L (17-59)
[2023-04-16 14:56] LABS: Reflexed Lactate in 2 Hours Y
[2023-04-16 15:22] LABS: Appearance Urine UA CLOUDY; Bilirubin Urine UA NEGATIVE (NEGATIVE); Color Urine UA YELLOW; Glucose Urine UA NEGATIVE (Negative); Ketones Urine UA TRACE (NEGATIVE); Leukocyte Esterase Urine UA 1+ (NEGATIVE); Nitrite Urine UA NEGATIVE (Negative); Occult Blood Urine UA 3+ (Negative); Protein Urine UA 2+ (Negative)
[2023-04-16 15:33] LABS: Lactate 2HR (Lactic Acid Rflx) 3.2 mmol/L (0.7-2.1)
[2023-04-16 15:35] LABS: Bacteria Urine Many (>30); Culture Indicated Urine Specimen Cultured; RBC Urine 1-5/HPF (0-5/HPF); Squamous Epithelial Cell Urine 1-5 /HPF (0-5/HPF); Urine Volume 10mL (spun); WBC Urine 30-100/HPF (0-5/HPF)
[2023-04-16] MEDS: IBUPROFEN 400 MG TABLET 800 MG PO (15:51)
--- NOTE | 2023-04-16 16:19 | PM.HP.1 ---
History of Present Illness History of Present Illness Date Patient Seen: 04/16/23 Time Patient Seen: 16:20 Date of Onset of Symptoms: 04/16/23 Chief complaint: hips hurt shaky Narrative: CC: I feel fine, who's winning the superbowl? Patient presented with after being found down this morning and declining to get up for several hours. He is affable but confused today. A urine infection was identified on his labs and he does appear to be septic with consequent metabolic encephalopathy. He has no particular complaints but is fuzzy on how he got here and what was going on this morning although he does remember some nausea which has since resolved. PFSH Medical History Insomnia BPH w urinary obs/LUTS Seasonal allergies Diverticular disease Hypertension Hyperlipidemia Surgical History H/O umbilical hernia repair History of colonoscopy Status post tonsillectomy and adenoidectomy Social History household members: spouse Smoking Status: Current every day smoker Meds Home Medications and Allergies Home Medications Medication Instructions Recorded Confirmed Type aspirin 81 mg tablet,delayed 81 mg PO DAILY #180 tabs 01/15/19 04/16/23 Rx release blood-glucose meter #1 ea 08/10/21 03/14/23 Rx atorvastatin 80 mg tablet (Lipitor) 80 mg PO QDAY #90 tabs 07/28/22 04/16/23 Rx lisinopril 10 mg tablet 10 mg PO QDAY #90 tabs 07/28/22 04/16/23 Rx blood sugar diagnostic (Blood #100 ea 02/10/23 03/14/23 Rx Glucose Test strips) lancets 33 gauge #100 ea 02/10/23 03/14/23 Rx hydrocodone 5 mg-acetaminophen 325 1 - 2 tab PO Q4H PRN pain #60 tabs 03/21/23 04/16/23 Rx mg tablet celecoxib 200 mg capsule 200 mg PO DAILY 04/16/23 04/16/23 History glipizide 10 mg tablet, extended 10 mg PO DAILY 04/16/23 04/16/23 History release 24 hr metformin 500 mg tablet 500 mg PO BID 04/16/23 04/16/23 History Allergies Allergy/AdvReac Type Severity Reaction Status Date / Time No Known Allergies Allergy Unknown Verified 04/16/23 12:45 [NO KNOWN ALLERGIES] Review of Systems Review of Systems Narrative: all systems reviewed and negative except as otherwise documented in HPI Exam Vital Signs (past 8 hours): - 04/16/23 12:45 04/16/23 12:58 04/16/23 13:00 Temperature 100.6 F H Pulse Rate 104 H 103 H Respiratory Rate 18 Blood Pressure 137/78 172/78 H Pulse Oximetry 99 99 Oxygen Delivery Method Room Air 04/16/23 13:00 04/16/23 13:29 04/16/23 13:29 Temperature Pulse Rate 117 H 100 H Respiratory Rate 23 22 Blood Pressure 135/66 Pulse Oximetry 98 96 Oxygen Delivery Method 04/16/23 13:30 04/16/23 13:30 04/16/23 13:39 Temperature 100.6 F H Pulse Rate 98 H Respiratory Rate 17 Blood Pressure 138/63 Pulse Oximetry 97 Oxygen Delivery Method 04/16/23 14:00 04/16/23 14:00 04/16/23 14:30 Temperature Pulse Rate 94 H 92 H Respiratory Rate 21 22 Blood Pressure 141/72 H Pulse Oximetry 98 98 Oxygen Delivery Method Room Air 04/16/23 14:30 04/16/23 15:00 04/16/23 15:00 Temperature Pulse Rate 90 Respiratory Rate 21 Blood Pressure 158/65 H 139/64 Pulse Oximetry 98 Oxygen Delivery Method Room Air 04/16/23 15:16 04/16/23 15:16 04/16/23 15:30 Temperature 100.9 F H 100.9 F H Pulse Rate 94 H Respiratory Rate 20 Blood Pressure Pulse Oximetry 98 Oxygen Delivery Method 04/16/23 15:31 04/16/23 15:31 04/16/23 16:00 Temperature Pulse Rate 92 H Respiratory Rate 18 Blood Pressure 147/65 H 149/69 H Pulse Oximetry 98 Oxygen Delivery Method Room Air 04/16/23 16:00 Temperature Pulse Rate 80 Respiratory Rate 19 Blood Pressure Pulse Oximetry 98 Oxygen Delivery Method Room Air Oxygen Delivery Method Room Air Narrative Exam Narrative: alert laying on gurney no acute distress Const General: cooperative, healthy appearing, comfortable and well developed Nutritional Appearance: average body habitus and well nourished HENMO Other: normocephalic atraumatic Eyes Other: EOMOI, PERRLA Resp Other: clear to auscultation bilaterally Cardio Other: regular rate and rhythm, S1/S2 GI Other: soft nontender no costavertebral angle tenderness noted bilaterally Neuro Other: alert awake disoriented and reaching for words and concepts in some of his responses about this morning Extrem Other: no pedal edema moving all extremities Objective Labs 04/16/23 13:04 04/16/23 13:04 Labs: Laboratory Results - last 24 hr 04/16/23 04/16/23 04/16/23 13:04 15:05 15:13 WBC 17.7 H RBC 4.22 L Hgb 13.3 L Hct 39.8 L MCV 94.4 MCH 31.6 MCHC 33.4 RDW 14.2 Plt Count 254 Neut % (Auto) 94.6 H Lymph % (Auto) 3.6 L [place] % (Auto) 1.6 L Eos % (Auto) 0.0 L Baso % (Auto) 0.2 Neut # (Auto) 40156 H Lymph # (Auto) 600 L [place] # (Auto) 300 Eos # (Auto) 0 Baso # (Auto) 0 PT 12.3 INR 1.1 APTT 36 Sodium 136 L Potassium 4.3 Chloride 100 Carbon Dioxide 18 L BUN 22 H Creatinine 0.77 Estimated GFR > 60 BUN/Creatinine Ratio 28.6 H Glucose 190 H Lactate 6.2 H* 3.2 H Calcium 9.7 Total Bilirubin 0.8 AST 88 H ALT 44 Alkaline Phosphatase 54 Total Creatine Kinase 2253 H Troponin I < 0.012 NT-Pro-B Natriuret Pep 1260 H Total Protein 7.9 Albumin 4.8 Globulin 3.1 Albumin/Globulin Ratio 1.5 Lipase 32 Procalcitonin 1.33 H Urine Color Yellow Urine Appearance Cloudy Urine pH 6.0 Ur Specific [place] 1.020 Urine Protein 2+ H Urine Glucose (UA) Negative Urine Ketones Trace H Urine Occult Blood 3+ H Urine Nitrate Negative Urine Bilirubin Negative Urine Urobilinogen 1.0 Ur Leukocyte Esterase 1+ H Urine RBC 1-5/hpf Urine WBC 30-100/hpf H Ur Squamous Epith Cells 1-5 /hpf Urine Bacteria Many (>30) H Ur Culture Indicated? Specimen cultured Vol Urine Centrifuged 10ml (spun) Chlamy pneumoniae PCR Not detected Adenovirus (PCR) Not detected B.parapertussis DNA PCR Not detected Coronavirus OC43 (PCR) Not detected Coronavirus HKU1 (PCR) Not detected Coronavirus 229E (PCR) Not detected SARS-CoV-2 (PCR) Not detected Coronavirus NL63 (PCR) Not detected Human Metapneumovir PCR Not detected Influenza Type A (PCR) Not detected Influenza Type B (PCR) Not detected M. pneumoniae (PCR) Not detected Parainfluenza 1 (PCR) Not detected Parainfluenza 2 (PCR) Not detected Parainfluenza 3 (PCR) Not detected Parainfluenza 4 (PCR) Not detected RSV (PCR) Not detected Entero/Rhino (PCR) Not detected Assessment & Plan Assessment & Plan narrative: #sepsis presumed UTI source #encephalopathy 2/2 sepsis Improving I think with fluids and antibiotics continue IVF and rocephin culture pending #essential hypertension stable continue home lisinopril 10 #NIDDM stable continue home meds with fingersticks and SSI #coronary artery disease head CT and EKG wnl - continue home statin and asa 81 dispo: admit for treatment diet: regular Code: DNR MDM: Marcia PCP: Yamile
--- NOTE | 2023-04-16 16:57 | PC.NURSE ---
Pt arrived in wheelchair from ED at 1630, A&Ox3, disagreeable and confused as to why he is in the hospital. VSS on RA. Able to transfer SBA from wheelchair to bed. Tele in place: NSR. Lung sounds CTA, bowel sounds present, CMS intact. No c/o pain or SOB. LBM this am, no c/o constipation or difficulty voiding. Pt and oriented to room and call light, pt requesting to watch the superbowl. Bed in low position, bed alarm activated, call light within reach.
[2023-04-16] MEDS: ATORVASTATIN 20 MG TABLET 80 MG PO (17:43)
[2023-04-16] MEDS: lisinopriL 10 MG TABLET PO (17:43)
[2023-04-16] MEDS: SODIUM CHLORIDE 0.9% 1,000 ML 100 ML IV (17:43)
[2023-04-16 17:51] LABS: Lactate (Lactic Acid) 3.8 mmol/L (0.7-2.1)
[2023-04-16 19:18] LABS: Reflexed Lactate in 2 Hours Y
[2023-04-16 19:44] LABS: Lactate 2HR (Lactic Acid Rflx) 3.4 mmol/L (0.7-2.1)
--- NOTE | 2023-04-16 20:58 | PC.NURSE ---
Addendum entered by Leonardo Shanks R.N. 04/16/23 23:33: Last urine output was at 1518 per straight catheter. Bladder scan showing 6ml, Dr. Fink made aware, order for straight catheter received. 100ml out per straight cath. Patient fully awoke during straight catheter placement for about 5 minutes. This RN attempted asking pt orientation questions, patient stated i know where I am, im tired of this shit Rn continued to attempt conversation, patient stated i just need the tv on to watch the [employer] game. Bed in lowest position, bed alarm on, call light within reach. Patient asleep by the time this RN left room. Original Note: Patient sleeping, not awaking to sound or light touch. This RN sternal rubbed patient to wake him, patient pushing this Rn hand away and opening eyes and saying what. Patient will not wake further than this.
[2023-04-16] MEDS: INSULIN LISPRO 100 UNIT/ML 3ML VIAL SUBCUT (21:03)
[2023-04-16 21:53] LABS: Lactate (Lactic Acid) 2.7 mmol/L (0.7-2.1)
[2023-04-16 23:20] LABS: Reflexed Lactate in 2 Hours Y
[2023-04-17] VITALS (8 sets, daily range): BP systolic 133–178; BP diastolic 60–67; PULSE 49–69; RESP 16–17; TEMP 35.9–36.6; O2SAT 98–100; BMI 20.9
[2023-04-17] MEDS: SODIUM CHLORIDE 0.9% 1,000 ML 100 ML IV ×3 (04:14→23:48)
[2023-04-17 05:08] LABS: Add Manual Diff / Slide Review NO; Basophils Absolute Auto 0 /uL (0-100); Basophils Percent Auto 0.4 % (0-2); Eosinophils Absolute Auto 100 /uL (0-450); Eosinophils Percent Auto 0.7 % (2-4); Hemoglobin 11.4 g/dL (13.5-17.5); Lymphocytes Absolute Auto 900 /uL (1100-4500); Lymphocytes Percent Auto 8.5 % (25-40); Mean Corpuscular HGB Conc 34.5 % (30-36); Mean Corpuscular Hemoglobin 32.4 PG (26-34); Mean Corpuscular Volume 93.8 fL (80-100); Monocytes Absolute Auto 600 /uL (0-900); Monocytes Percent Auto 5.8 % (3-14); Neutrophils Absolute Auto 8700 /uL (1500-7000); Neutrophils Percent Auto 84.6 % (50-75); Platelet Count 183 X10^3/uL (150-400); Red Blood Cell Count 3.52 X10^6/uL (4.5-5.9); Red Cell Distribution Width 14.2 % (11.6-14.8); White Blood Cell Count 10.3 X10^3/uL (4.5-11.0)
[2023-04-17 05:18] LABS: Alanine Aminotransferase 35 IU/L (<50); Albumin 3.1 g/dL (3.5-5.0); Albumin Globulin Ratio 1.2 (1.0-2.8); Alkaline Phosphatase 41 U/L (38-126); Aspartate Aminotransferase 80 IU/L (17-59); BUN Creatinine Ratio 34.3 (6-22); Bilirubin Total 0.5 mg/dL (0.2-1.3); Blood Urea Nitrogen 24 mg/dL (9-20); Calcium 8.2 mg/dL (8.4-10.2); Carbon Dioxide 23 mmol/L (22-32); Chloride 108 mmol/L (98-107); Estimated Glomerular Filt Rate > 60 mL/min (>60); Globulin 2.6 g/dL (1.7-4.1); Glucose 96 mg/dL (80-110); HEMOLYSIS < 15 (0-50); Potassium 3.7 mmol/L (3.4-5.1); Sodium 137 mmol/L (137-145); Total Protein 5.7 g/dL (6.3-8.2)
--- NOTE | 2023-04-17 07:35 | PM.PN.1 ---
Subjective Subjective Date Patient Seen: 04/17/23 Time Patient Seen: 07:35 Interval history: 68-year-old male, well known to me, admitted with probable urosepsis. Discussed with Dr. Fink. Patient is a poorly controlled diabetic who has been resistant to any additional intervention including medication and or Education for his diabetes which is probably a significant contributing factor Overnight had limited urine output was I and O cath for only 100 cc of urine, but has had another 250+ out since that time This morning he is minimizing his symptoms as usual. Talked about hip pain and being down on the ground because inability to get up because of pain. Really does not acknowledge any altered mental status. Can not get him to give me a good story as to what he remembers happened yesterday. Does admit to being down on the ground which is consistent with his elevated CPK Exam Vital Signs (past 8 hours): - 04/17/23 00:00 04/17/23 04:00 Temperature 96.6 F L 97.3 F L Pulse Rate 55 L 69 Respiratory Rate 16 16 Blood Pressure 133/60 136/64 Pulse Oximetry 98 99 Oxygen Flow Rate 0 0 Oxygen Delivery Method Room Air Oxygen Flow Rate 0 Objective Labs 04/17/23 04:54 04/17/23 04:54 Labs: Laboratory Results - last 24 hr 04/16/23 04/16/23 04/16/23 13:04 15:05 15:13 WBC 17.7 H RBC 4.22 L Hgb 13.3 L Hct 39.8 L MCV 94.4 MCH 31.6 MCHC 33.4 RDW 14.2 Plt Count 254 Neut % (Auto) 94.6 H Lymph % (Auto) 3.6 L [place] % (Auto) 1.6 L Eos % (Auto) 0.0 L Baso % (Auto) 0.2 Neut # (Auto) 09541 H Lymph # (Auto) 600 L [place] # (Auto) 300 Eos # (Auto) 0 Baso # (Auto) 0 PT 12.3 INR 1.1 APTT 36 Sodium 136 L Potassium 4.3 Chloride 100 Carbon Dioxide 18 L BUN 22 H Creatinine 0.77 Estimated GFR > 60 BUN/Creatinine Ratio 28.6 H Glucose 190 H Lactate 6.2 H* 3.2 H Calcium 9.7 Total Bilirubin 0.8 AST 88 H ALT 44 Alkaline Phosphatase 54 Total Creatine Kinase 2253 H Troponin I < 0.012 NT-Pro-B Natriuret Pep 1260 H Total Protein 7.9 Albumin 4.8 Globulin 3.1 Albumin/Globulin Ratio 1.5 Lipase 32 Procalcitonin 1.33 H Urine Color Yellow Urine Appearance Cloudy Urine pH 6.0 Ur Specific [place] 1.020 Urine Protein 2+ H Urine Glucose (UA) Negative Urine Ketones Trace H Urine Occult Blood 3+ H Urine Nitrate Negative Urine Bilirubin Negative Urine Urobilinogen 1.0 Ur Leukocyte Esterase 1+ H Urine RBC 1-5/hpf Urine WBC 30-100/hpf H Ur Squamous Epith Cells 1-5 /hpf Urine Bacteria Many (>30) H Ur Culture Indicated? Specimen cultured Vol Urine Centrifuged 10ml (spun) Chlamy pneumoniae PCR Not detected Adenovirus (PCR) Not detected B.parapertussis DNA PCR Not detected Coronavirus OC43 (PCR) Not detected Coronavirus HKU1 (PCR) Not detected Coronavirus 229E (PCR) Not detected SARS-CoV-2 (PCR) Not detected Coronavirus NL63 (PCR) Not detected Human Metapneumovir PCR Not detected Influenza Type A (PCR) Not detected Influenza Type B (PCR) Not detected M. pneumoniae (PCR) Not detected Parainfluenza 1 (PCR) Not detected Parainfluenza 2 (PCR) Not detected Parainfluenza 3 (PCR) Not detected Parainfluenza 4 (PCR) Not detected RSV (PCR) Not detected Entero/Rhino (PCR) Not detected 04/16/23 04/16/23 04/16/23 17:30 19:28 21:31 WBC RBC Hgb Hct MCV MCH MCHC RDW Plt Count Neut % (Auto) Lymph % (Auto) [place] % (Auto) Eos % (Auto) Baso % (Auto) Neut # (Auto) Lymph # (Auto) [place] # (Auto) Eos # (Auto) Baso # (Auto) PT INR APTT Sodium Potassium Chloride Carbon Dioxide BUN Creatinine Estimated GFR BUN/Creatinine Ratio Glucose Lactate 3.8 H 3.4 H 2.7 H Calcium Total Bilirubin AST ALT Alkaline Phosphatase Total Creatine Kinase Troponin I NT-Pro-B Natriuret Pep Total Protein Albumin Globulin Albumin/Globulin Ratio Lipase Procalcitonin Urine Color Urine Appearance Urine pH Ur Specific [place] Urine Protein Urine Glucose (UA) Urine Ketones Urine Occult Blood Urine Nitrate Urine Bilirubin Urine Urobilinogen Ur Leukocyte Esterase Urine RBC Urine WBC Ur Squamous Epith Cells Urine Bacteria Ur Culture Indicated? Vol Urine Centrifuged Chlamy pneumoniae PCR Adenovirus (PCR) B.parapertussis DNA PCR Coronavirus OC43 (PCR) Coronavirus HKU1 (PCR) Coronavirus 229E (PCR) SARS-CoV-2 (PCR) Coronavirus NL63 (PCR) Human Metapneumovir PCR Influenza Type A (PCR) Influenza Type B (PCR) M. pneumoniae (PCR) Parainfluenza 1 (PCR) Parainfluenza 2 (PCR) Parainfluenza 3 (PCR) Parainfluenza 4 (PCR) RSV (PCR) Entero/Rhino (PCR) 04/16/23 04/17/23 23:36 04:54 WBC 10.3 RBC 3.52 L Hgb 11.4 L Hct 33.0 L MCV 93.8 MCH 32.4 MCHC 34.5 RDW 14.2 Plt Count 183 Neut % (Auto) 84.6 H Lymph % (Auto) 8.5 L [place] % (Auto) 5.8 Eos % (Auto) 0.7 L Baso % (Auto) 0.4 Neut # (Auto) 8700 H Lymph # (Auto) 900 L [place] # (Auto) 600 Eos # (Auto) 100 Baso # (Auto) 0 PT INR APTT Sodium 137 Potassium 3.7 Chloride 108 H Carbon Dioxide 23 BUN 24 H Creatinine 0.70 Estimated GFR > 60 BUN/Creatinine Ratio 34.3 H Glucose 96 Lactate 2.0 Calcium 8.2 L Total Bilirubin 0.5 AST 80 H ALT 35 Alkaline Phosphatase 41 Total Creatine Kinase Troponin I NT-Pro-B Natriuret Pep Total Protein 5.7 L Albumin 3.1 L Globulin 2.6 Albumin/Globulin Ratio 1.2 Lipase Procalcitonin Urine Color Urine Appearance Urine pH Ur Specific [place] Urine Protein Urine Glucose (UA) Urine Ketones Urine Occult Blood Urine Nitrate Urine Bilirubin Urine Urobilinogen Ur Leukocyte Esterase Urine RBC Urine WBC Ur Squamous Epith Cells Urine Bacteria Ur Culture Indicated? Vol Urine Centrifuged Chlamy pneumoniae PCR Adenovirus (PCR) B.parapertussis DNA PCR Coronavirus OC43 (PCR) Coronavirus HKU1 (PCR) Coronavirus 229E (PCR) SARS-CoV-2 (PCR) Coronavirus NL63 (PCR) Human Metapneumovir PCR Influenza Type A (PCR) Influenza Type B (PCR) M. pneumoniae (PCR) Parainfluenza 1 (PCR) Parainfluenza 2 (PCR) Parainfluenza 3 (PCR) Parainfluenza 4 (PCR) RSV (PCR) Entero/Rhino (PCR) PFSH Medical History Insomnia BPH w urinary obs/LUTS Seasonal allergies Diverticular disease Hypertension Hyperlipidemia Surgical History H/O umbilical hernia repair History of colonoscopy Status post tonsillectomy and adenoidectomy Social History household members: spouse Smoking Status: Current every day smoker alcohol intake: former Assessment & Plan Assessment & Plan narrative: 1. Urosepsis-continue with current antibiotic therapy until organism identified we can tailor antibiotic therapy. White blood cell count improved this morning. Slight bump in LFTs also likely secondary to his infectious process. Mental status appears to be improving. Will determine through the course of the day today whether not physical therapy be necessary 2. Diabetes-continue with current medications including insulin coverage. Patient is on a carbohydrate consistent diet 3. Hypertension-also continuing on patient's usual lisinopril. Continue to monitor numbers 4. Metabolic encephalopathy-appears to be clearing as we treat his infection which is likely source of his altered mental status 5. Weakness-I think patient should have a PT evaluation given his ongoing complaint about hip pain and him being down for an extended time yesterday. He may well be back to baseline once we treat his infection but probably worth evaluation Quality VTE Deep Vein Thrombosis/Pulmonary Embolism Present on Admission: No
[2023-04-17] MEDS: ATORVASTATIN 20 MG TABLET 80 MG PO (08:18)
[2023-04-17] MEDS: ASPIRIN EC 81 MG TABLET PO (08:18)
[2023-04-17] MEDS: lisinopriL 10 MG TABLET PO (08:19)
[2023-04-17] MEDS: DOCUSATE 100 MG CAPSULE PO ×2 (08:19→21:28)
[2023-04-17] MEDS: ENOXAPARIN 40 MG/0.4 ML SYRINGE SUBCUT (08:19)
[2023-04-17] MEDS: METFORMIN HCL 500 MG TABLET 1000 MG PO ×2 (08:19→21:28)
[2023-04-17 09:13] LABS: Acinetobacter calcoa-baumannii Not Detected (Not Detect); Bacteroides fragilis Not Detected (Not Detect); Candida albicans Not Detected (Not Detect); Candida auris Not Detected (Not Detect); Candida glabrata Not Detected (Not Detect); Candida krusei Not Detected (Not Detect); Candida parapsilosis Not Detected (Not Detect); Candida tropicalis Not Detected (Not Detect); Cryptococcus neoformans/gatti Not Detected (Not Detect); Enterobacter cloacae complex Not Detected (Not Detect); Enterobacterales Not Detected (Not Detect); Enterococcus faecalis Not Detected (Not Detect); Enterococcus faecium Not Detected (Not Detect); Haemophilus influenzae Not Detected (Not Detect); Klebsiella aerogenes Not Detected (Not Detect); Listeria monocytogenes Not Detected (Not Detect); Neisseria meningitidis Not Detected (Not Detect); Proteus species Not Detected (Not Detect); Pseudomonas aeruginosa Not Detected (Not Detect); Salmonella species Not Detected (Not Detect); Serratia marcescens Not Detected (Not Detect); Staphylococcus epidermidis Not Detected (Not Detect); Staphylococcus lugdunensis Not Detected (Not Detect); Staphylococcus species Not Detected (Not Detect); Stenotrophomonas maltophilia Not Detected (Not Detect); Streptococcus agalactiae (Gr B Detected (Not Detect); Streptococcus pneumonia Not Detected (Not Detect); Streptococcus pyogenes (Gr A) Not Detected (Not Detect); Streptococcus species Detected (Not Detect)
--- NOTE | 2023-04-17 10:14 | PT.IIE ---
Current Diagnoses Sepsis, unspecified organism (04/16/23) Surgical History (Last Reviewed 04/16/23 @ 13:16 by Silvia Kline DO) H/O umbilical hernia repair History of colonoscopy Status post tonsillectomy and adenoidectomy Medical History (Last Reviewed 04/16/23 @ 13:16 by Silvia Kline DO) BPH w urinary obs/LUTS Diverticular disease Hyperlipidemia Hypertension Insomnia Seasonal allergies Physical Therapy Inpatient Evaluation/Re-Eval M1 PT/OT-IP Prior Functional Status Start: 04/17/23 08:19 Freq: NEEDED Status: Active Protocol: Document 04/17/23 10:14 AW (Rec: 04/17/23 10:17 AW [id number]) Medical Review Prior Functional Status Medical History Reviewed Yes Communication Presents with mild confusion but is able to make needs known Mobility and Gait Independent. Can manage shopping trips independently. Uses no AD at baseline. Activities of Daily Living and IADL's Independent with basic ADL's. Pt drives. Social History Household Members spouse Living Arrangements House Number of Floors (Floors) One Floor Number of Stairs To Enter/Railing? 6 steps at front of house, 3 steps at back. Both entrances have single railing. Home Environment High Toilet,Tub/Shower Employment Status Retired Additional Social History Comment Pt tends to sleep on the couch . 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 M2 PT-IP Current Condition Start: 04/17/23 08:19 Freq: NEEDED Status: Active Protocol: Document 04/17/23 10:14 AW (Rec: 04/17/23 10:19 AW [id number]) Physical Therapy Current Condition Current Condition Evaluation Date 04/17/23 Treatment Diagnosis sepsis, acute encephalopathy, decreased balance and strength Onset Date 04/16/23 M3 PT-IP Subjective Start: 04/17/23 08:19 Freq: NEEDED Status: Active Protocol: Document 04/17/23 10:14 AW (Rec: 04/17/23 10:19 AW [id number]) Subjective Physical Therapy Visit Type Type Initial Evaluation Visit Start Time 09:35 Visit Stop Time 10:14 Notes Split visit for therapist to go to rounds Physical Therapy Visit Comments Patient Comments Pt is willing to participate with PT Therapy Pain Assessment Pain When Pain Assessed During Mobility Pain Present Pain Present Pain Reported Location bilateral hips - chronic Scale Used not quantified Description Chronic Pain Behaviors Wincing M4 PT-IP Mobility and Gait Start: 04/17/23 08:19 Freq: NEEDED Status: Active Protocol: Document 04/17/23 10:14 AW (Rec: 04/17/23 10:59 AW [id number]) PT-Bed Mobility Assessment Supine to Sit Supine to Sit Independent Sit to Supine Sit to Supine Independent PT-Transfer Assessment Sit to and From Stand Sit to and from Stand Independent Equipment Transfer Assistive Device None Transfers Transfer Destination Bed,Chair Transfer Technique Stand Step Pivot Transfer Ability Level of Assist Independent Comments Mobility Comments Pt is found resting in bed. BP at rest 168/63 HR 55. He completed all transfers and bed mobility independently and without hesitation. BP after mobility is 164/67 HR 64. Gait Assessment Gait Gait Assistance Required: Standby Assistance Distance (Feet) 200 Assistive Devices Assistive Device None,Gait Belt Gait Deviations General Gait Pattern Antalgic,Decreased Stride Length,Wide Based Gait Factors Limiting Gait Function Factors Limiting Gait Function Decreased Strength,Pain,Poor Balance Comments Gait Comments Pt ambulates with inconsistent steps, wide HARSHA, and occasional scissoring pattern. He was safe with SBA but not likely at his baseline. See FGA score below. Stair Climbing Assessment Evaluation Level of Assist On Stairs Independent Devices Stair Climbing Assistive Devices Left Railing Technique/Endurance Stair Climbing Direction Ascend and Descend Stair Climbing Technique Step Over Step Number of Steps Climbed 3 Query Text: Stair Climbing Set # Repetitions (reps) 2 PT-Balance Assessment Sitting Balance and Reactions Static Sitting Balance Ability Normal Dynamic Sitting Balance Ability Normal Standing Balance and Reactions Static Standing Balance Ability Good Dynamic Standing Balance Ability Fair Device Used no AD Functional Assessments Functional Tests Functional Gait Assessment 20/30 Other Functional Tests Performed Single points deducted for horizontal and vertical head turns, pivot turn, step over, eyes closed, backward, and stairs. NBOS score is zero. M5 PT-IP Objective Assessments Start: 04/17/23 08:19 Freq: NEEDED Status: Active Protocol: Document 04/17/23 10:14 AW (Rec: 04/17/23 10:59 AW [id number]) Orientation Orientation/Cognition Level of Alertness Alert Orientation Name,Month,Place,Situation Language Function Ability No Deficits Noted Gross Range of Motion Upper Extremity ROM Assessment Within Functional Limits Lower Extremity ROM Assessment Within Functional Limits Strength Upper Extremity Strength Shoulder 4/5 Hand impaired Lower Extremity Strength Assessment Bilaterally Impaired Hip 3+/5 Knee 4/5 Ankle 4+/5 Comments Strength Comments No uniltaral deficit Coordination Assessment Gross Coordination Gross Coordination WNL Assessment Finger to Nose Test Normal Performance Foot Tapping Test Normal Performance Sensation Assessment Sensation Gross Sensation WNL M6 PT-IP Treatment Start: 04/17/23 08:19 Freq: NEEDED Status: Active Protocol: Document 04/17/23 10:14 AW (Rec: 04/17/23 10:59 AW [id number]) Physical Therapy Treatment Other Treatments Other Treatment Performed Discussed balance impairments and recommended outpatient PT follow up. M7 PT-IP Assessment and Plan Start: 04/17/23 08:19 Freq: NEEDED Status: Active Protocol: Document 04/17/23 10:14 AW (Rec: 04/17/23 10:59 AW [id number]) PT Summary Assessment and Plan Potential Rehabilitation Potential Good Status of Condition at Evaluation Evolving Summary Impairments Strength,Balance,Gait Assessment Summary Roger Roa is a 68 yo man admitted with sepsis and acute metabolic encephalopathy secondary to UTI. PMH includes HTN, HLD, diabetes, chronic hip pain, and nicotine dependence. Pt is independent in all regards at baseline. He lives with his spouse in a single level home. CLOF: Pt presents with gross strength impairments globally. Transfers are generally independent but dynamic balance is impaired with a Functional Gait Assessment score of 20/30 which is below norms for his age-matched peers and warrants further assessment and treatment. PT recommends safe discharge home with spouse assist once pt is medically stable. Further recommend follow up with outpatient PT to address balance and reduce overall falls risk. Goals Bed Mobility Goal Independent Transfer Goal Independent Gait Goal Independent Gait Distance 200 Other Goals - up/down 3 steps using single rail modified independent Frequency of Treatment Frequency Of Treatment Once a Day Treatment Plan Physical Therapy Treatment Plan Bed Mobility Training,Transfer Training,Gait Training, Therapeutic Exercise,Balance Retraining,Discharge Planning, Hot or Cold Pack,Neuromuscular Re-ed Other Recommendations and Next Treatment static and dynamic balance Focus Recommendations To Nursing Amount of Assist Needed Standby Assistance Discharge Recommendations PT Discharge Recommendations Home with Assistance, Outpatient PT Transportation Needs at Discharge Private Vehicle
--- NOTE | 2023-04-17 14:55 | CM.DANOTE ---
DCP Brief Assessment Note Pt is a 68yo M admitted for sepsis/UTI. Pt had some AMS/weakness upon admission. PCP Mathis Payer Medicare and [employer] GAMING FLOOR SUPERVISOR reviewed EMR. Per PT note, rec home with assistance. Pt has no DME at home. Per Dr. Ovalle note, mental status clearing more today. Pending cultures for abx need. Currently on IV ceftriaxone Q24 at this time. Per chart review, lives with spouse Marcia (p [phone]) independently in [place]. Per chart review, no obvious CM needs at this time. CM team will follow closely if IV abx is need at [place]. Plan: home with spouse when medically stable. No obvious CM needs identified at this time. CM team will continue to follow as needed, r/o IV abx need when cultures results are in. DYLAN Eduardo Discharge Planning/Care Management CM Discharge Assessment Start: 04/17/23 14:52 Freq: Status: Active Protocol: Document 04/17/23 14:52 (Rec: 04/17/23 14:55 [id number]) Discharge Planning Assessment Assigned Brand Activation Manager DYLAN Lopez DPOA/Assigned Designee Name Marcia spouse Contact Information [phone] Advance Directives? No History Provided By Patient,Family Member,Medical Record Prior Living Arrangements House Household Members spouse Independent with ADL's Yes Is patient alert and oriented? Yes Discharge Plan Home Referrals Initiated None needed Whiteboard Updated in Patient Room with No name and ext. # of Brand Activation Manager Review Status In Process Next Review Type Continued Stay Review
[2023-04-18 00:28] VITALS: BP 165/63; PULSE 50; RESP 18; TEMP 36.5; O2SAT 100
[2023-04-18 04:30] VITALS: BP 156/62; PULSE 50; RESP 18; TEMP 36.2; O2SAT 98
[2023-04-18 05:26] LABS: Add Manual Diff / Slide Review NO; Basophils Absolute Auto 100 /uL (0-100); Basophils Percent Auto 0.6 % (0-2); Eosinophils Absolute Auto 300 /uL (0-450); Eosinophils Percent Auto 2.9 % (2-4); Hemoglobin 11.2 g/dL (13.5-17.5); Lymphocytes Absolute Auto 1900 /uL (1100-4500); Lymphocytes Percent Auto 19.7 % (25-40); Mean Corpuscular HGB Conc 35.2 % (30-36); Mean Corpuscular Hemoglobin 32.4 PG (26-34); Mean Corpuscular Volume 92.1 fL (80-100); Monocytes Absolute Auto 1000 /uL (0-900); Monocytes Percent Auto 10.8 % (3-14); Neutrophils Absolute Auto 6400 /uL (1500-7000); Platelet Count 175 X10^3/uL (150-400); Red Blood Cell Count 3.47 X10^6/uL (4.5-5.9); Red Cell Distribution Width 14.1 % (11.6-14.8); White Blood Cell Count 9.7 X10^3/uL (4.5-11.0)
[2023-04-18 05:35] LABS: Alanine Aminotransferase 39 IU/L (<50); Albumin 2.8 g/dL (3.5-5.0); Albumin Globulin Ratio 1.2 (1.0-2.8); Alkaline Phosphatase 39 U/L (38-126); Aspartate Aminotransferase 73 IU/L (17-59); BUN Creatinine Ratio 23.6 (6-22); Bilirubin Total 0.3 mg/dL (0.2-1.3); Blood Urea Nitrogen 13 mg/dL (9-20); Calcium 8.1 mg/dL (8.4-10.2); Carbon Dioxide 19 mmol/L (22-32); Chloride 108 mmol/L (98-107); Estimated Glomerular Filt Rate > 60 mL/min (>60); Globulin 2.3 g/dL (1.7-4.1); Glucose 120 mg/dL (80-110); HEMOLYSIS 21 (0-50); Potassium 3.8 mmol/L (3.4-5.1); Sodium 135 mmol/L (137-145); Total Protein 5.1 g/dL (6.3-8.2)
[2023-04-18 07:00] VITALS: O2SAT 100
[2023-04-18] MEDS: NICOTINE 21 MG PATCH TOP (07:01)
--- NOTE | 2023-04-18 08:19 | P.DS_ITS ---
History of Present Illness History of Present Illness Date Patient Seen: 04/18/23 Time Patient Seen: 08:19 Chief complaint: hips hurt shaky Narrative: Patient presented with after being found down this morning and declining to get up for several hours. He is affable but confused today. A urine infection was identified on his labs and he does appear to be septic with consequent metabolic encephalopathy. He has no particular complaints but is fuzzy on how he got here and what was going on this morning although he does remember some nausea which has since resolved. {from Dr. Fink's H&P 04/16/23} Discharge Providers Provider Date of admission: 04/16/23 15:57 Discharge Date: 04/18/23 Primary care physician: Aristides Ovalle MD Consults: 04/17/23 08:13 Consult to Physical Therapy Evaluate & Treat Comment: Giacomo/real Physician Instructions: Evaluate and Treat Discharge provider: Aristides Ovalle MD Summary Hospital Course Discharge Diagnosis: 1. Metabolic encephalopathy 2. Acute UTI with Streptococcus 3. Sepsis syndrome 4. Global weakness 5. Type 2 diabetes non insulin using without complication 6. Hypertension 7. Hyperlipidemia 8. Active smoker Hospital Course: Patient was admitted as above. He received IV antibiotics and fluids. With this he seem to be improved. Eventually his urine culture grew Streptococcus species and PCR of his blood cultures identify the same organism. Blood cultures were not growing anything as of time of discharge. Patient was febrile upon presentation but remained afebrile for the remainder of his hospitalization Patient's mental status improved significantly he was up and about evaluated by Physical therapy in other than having some gait imbalance issues felt to be safe to go home Patient's blood sugar adequately controlled Therefore it was felt as though patient was improved and stable to return home on the morning of April 18, 2023 Exam Vital Signs (past 8 hours): - 04/18/23 00:28 04/18/23 04:30 Temperature 97.7 F 97.1 F L Pulse Rate 50 L 50 L Respiratory Rate 18 18 Blood Pressure 165/63 H 156/62 H Pulse Oximetry 100 98 Oxygen Flow Rate 0 0 Oxygen Delivery Method Room Air Oxygen Flow Rate 0 Objective Labs 04/18/23 05:12 04/18/23 05:12 Labs: Laboratory Results - last 24 hr 04/17/23 04/18/23 08:02 05:12 WBC 9.7 RBC 3.47 L Hgb 11.2 L Hct 32.0 L MCV 92.1 MCH 32.4 MCHC 35.2 RDW 14.1 Plt Count 175 Neut % (Auto) 66.0 Lymph % (Auto) 19.7 L [place] % (Auto) 10.8 Eos % (Auto) 2.9 Baso % (Auto) 0.6 Neut # (Auto) 6400 Lymph # (Auto) 1900 [place] # (Auto) 1000 H Eos # (Auto) 300 Baso # (Auto) 100 Sodium 135 L Potassium 3.8 Chloride 108 H Carbon Dioxide 19 L BUN 13 Creatinine 0.55 L Estimated GFR > 60 BUN/Creatinine Ratio 23.6 H Glucose 120 H Calcium 8.1 L Total Bilirubin 0.3 AST 73 H ALT 39 Alkaline Phosphatase 39 Total Protein 5.1 L Albumin 2.8 L Globulin 2.3 Albumin/Globulin Ratio 1.2 A.calcoaceticus-baumannii cmplx PCR Not detected Bacteroides fragilis Not detected Hanane albicans (PCR) Not detected [place]ane auris (PCR) Not detected C. glabrata (PCR) Not detected C. krusei (PCR) Not detected C. parapsilosis (PCR) Not detected C. tropicalis (PCR) Not detected C. neoform/gattii (PCR) Not detected Enterobacterales (PCR) Not detected E. cloacae complex PCR Not detected Enterococc faecalis PCR Not detected Enterococc faecium PCR Not detected E. coli (PCR) Not detected H. influenzae (PCR) Not detected Klebsiella aerogenes (PCR) Not detected Klebsiella oxytoca PCR Not detected Klebsiella pneumoniae Not detected List. monocytogenes PCR Not detected N. meningitidis (PCR) Not detected Proteus species (PCR) Not detected Salmonella spp. (PCR) Not detected Serratia marcescens PCR Not detected Staphylococcus sp PCR Not detected Staph aureus (PCR) Not detected mecA/C & MREJ Resist Gene Not applicable mecA/C-Methicil Resis Gene Not applicable mcr-1 Colistin Res Gene PCR Not applicable Staph epidermidis (PCR) Not detected Staph lugdunensis PCR Not detected S. maltophilia (PCR) Not detected Streptococcus sp PCR Detected Group A Strep (PCR) Not detected Strep agalactiae (PCR) Detected Strep pneumoniae (PCR) Not detected P. aeruginosa (PCR) Not detected Mallika/B-Vanco Res Genes Not applicable blaIMP Car res Gene PCR Not applicable KPC-Carbap Res Gene PCR Not applicable blaNDM Car Res Gene PCR Not applicable OXA-48 Carbapenem Resis Gene (PCR) Not applicable blaVIM Car Res Gene PCR Not applicable CTX-M Gene Resistance (PCR) Not applicable PFSH Medical History Insomnia BPH w urinary obs/LUTS Seasonal allergies Diverticular disease Hypertension Hyperlipidemia Surgical History H/O umbilical hernia repair History of colonoscopy Status post tonsillectomy and adenoidectomy Social History household members: spouse Smoking Status: Current every day smoker alcohol intake: former Discharge Assessment & Plan Assessment and Plan Plan of Treatment: Patient will continue on oral first generation cephalosporin for treatment of his infection He will continue all his other usual medications He will be seen in the outpatient clinic in approximately 7-10 days for re- evaluation at which point outpatient PT will be initiated as well Discharge Plan Discharge Plan Patient Disposition: Home Discharge orders & Medications Prescriptions: New cephalexin 500 mg capsule 500 mg PO TID 7 Days Qty: 21 0RF Continued aspirin 81 mg tablet,delayed release (DR/EC) 81 mg PO DAILY Qty: 180 1RF (DME) blood-glucose meter Kit See Rx Instructions .Route Qty: 1 0RF Rx Instructions: Use to check Blood Sugars 1x a day. lisinopril 10 mg tablet 10 mg PO QDAY Qty: 90 3RF atorvastatin [Lipitor] 80 mg tablet 80 mg PO QDAY Qty: 90 3RF hydrocodone-acetaminophen 5-325 mg tablet 1 - 2 tab PO Q4H PRN (Reason: pain) Qty: 60 0RF Patient Comments: Doesn't take every day, if he does, usually half a tab (DME) Blood Glucose Test Strip See Rx Instructions .Route Qty: 100 3RF Rx Instructions: Use to check Blood Sugars 1x a day (DME) lancets 33 gauge misc See Rx Instructions .Route Qty: 100 3RF Rx Instructions: Use to check BS once a day glipizide 10 mg tablet extended release 24hr 10 mg PO DAILY celecoxib 200 mg capsule 200 mg PO DAILY metformin 500 mg tablet 500 mg PO BID Follow up/Referrals: Aristides Ovalle MD [Primary Care Provider] - 2 Weeks Discharge Health Status Multidrug resistant organism: No MDRO Diet/Activity/Treatments Diet: Carb-consistent/Diabetic Skin/Wound/Dressing Care Report to your healthcare provider any signs of infection, such as:: chills, fever Visit Report/Discharge Packet Stand Alone Forms: Patient Portal/API, Stroke Signs & Symptoms Discharge Data Primary Care Provider: Aristides Ovalle VTE Deep Vein Thrombosis/Pulmonary Embolism Present on Admission: No
--- NOTE | 2023-04-18 09:14 | PC.NURSE ---
Pt dressed, sitting in chair. Denies any issues at this time. Discharge instructions given w/ apparent understanding. Awaiting transportation. Call light w/in reach.
--- NOTE | 2023-04-18 09:15 | CM.DPNOTE ---
DCP Note PHOTOGRAPHIC PROCESSOR reviewed EMR. Per Yamile no, pt to dc home today. No CM needs identified. Per RN, pt eager to leave. No obvious CM needs. Plan; home today, no CM needs identified. CM team will continue to follow as needed. Farideh Rodriguez, DYLAN
== END 2023-04-18 09:31 | disposition home or self-care (01) | DRG 871 ==
LOC: ED 15:56 → AC 15:57
PROVIDERS: Admitting Provider Family Medicine; Emergency Provider Emergency Medicine; PCP Internal Medicine; Referring Provider Emergency Medicine; Visit Provider Internal Medicine
DX: A41.9 Sepsis, unspecified organism (principal); G93.41 Metabolic encephalopathy; N39.0 Urinary tract infection, site not specified; E87.20 Acidosis, unspecified; I10 Essential (primary) hypertension; E11.9 Type 2 diabetes mellitus without complications; I25.10 Atherosclerotic heart disease of native coronary artery without angina pectoris; B95.1 Streptococcus, group B, as the cause of diseases classified elsewhere; E78.5 Hyperlipidemia, unspecified; F17.200 Nicotine dependence, unspecified, uncomplicated; Z66 Do not resuscitate; Z79.84 Long term (current) use of oral hypoglycemic drugs
CPT/HCPCS: 36415; 51701; 51798; 70450; 71045; 80053; 81001; 82550; 82962; 83605; 83690; 83880; 84145; 84484; 85025; 85610; 85730; 87040; 87077; 87086; 87147; 87154; 87186; 87633; 93005; 93010; 96365; 96375; 97161; 99232; 99238; 99285; J0696; J1650; J1815; J2405

== ENCOUNTER → 2023-04-27 06:38 | Outpatient (CLI) | payer MEDICARE, OTHER, SELFPAY ==
[2023-04-17 04:32] VITALS: BMI 20.9
[2023-04-27 08:24] LABS: Alanine Aminotransferase 32 IU/L (<50); Albumin 4.1 g/dL (3.5-5.0); Albumin Globulin Ratio 1.5 (1.0-2.8); Alkaline Phosphatase 68 U/L (38-126); Aspartate Aminotransferase 33 IU/L (17-59); BUN Creatinine Ratio 18.6 (6-22); Bilirubin Total 0.7 mg/dL (0.2-1.3); Blood Urea Nitrogen 13 mg/dL (9-20); Calcium 9.7 mg/dL (8.4-10.2); Carbon Dioxide 25 mmol/L (22-32); Chloride 104 mmol/L (98-107); Estimated Glomerular Filt Rate > 60 mL/min (>60); Globulin 2.7 g/dL (1.7-4.1); Glucose 75 mg/dL (80-110); HEMOLYSIS < 15 (0-50); Potassium 4.4 mmol/L (3.4-5.1); Sodium 140 mmol/L (137-145); Total Protein 6.8 g/dL (6.3-8.2)
== END ==
PROVIDERS: PCP Internal Medicine; Referring Provider Internal Medicine; Visit Provider Internal Medicine
DX: E11.9 Type 2 diabetes mellitus without complications (principal); I10 Essential (primary) hypertension; E78.2 Mixed hyperlipidemia
CPT/HCPCS: 36415; 80053; 83036

== ENCOUNTER → 2023-05-09 07:43 | Outpatient (CLI) | payer MEDICARE, OTHER, SELFPAY ==
[2023-04-17 04:32] VITALS: BMI 20.9
--- NOTE | 2023-05-09 07:46 | DI.MRI.S_ITS ---
PROCEDURE: MR STROKE Pre- and post-contrast brain MRI, non-contrast brain MR angiogram, pre- and postcontrast neck MR angiogram INDICATIONS: Right Leg and tremor TECHNIQUE: Brain: Noncontrast axial T1 spin echo, axial T2 fast spin echo, sagittal and axial FLAIR, coronal T2 fast spin echo, axial gradient echo, axial diffusion and ADC through the brain. After the administration of contrast, axial 3D VIBE of the cranial vasculature and brain. Brain MRA: Non-contrast 3-D time of flight MR angiogram, with multiple cqiszud-rifmywimz-pntdosvigh (MIP) reformats performed. Neck MRA: Axial and sagittal TruFISP through the neck. Coronal dynamic MR angiogram during administration of contrast in the arterial and venous phases, with 3-dimenstional jetgtzs-lgqzpmfvv-pkbsqrlmee (MIP) reformats constructed from subtraction images. COMPARISON: None. FINDINGS: Image quality: Excellent. BRAIN: CSF spaces: Ventricles are normal in size and shape. Basal cisterns are patent. No extra-axial fluid collections. Brain: No intracranial bleeds or mass effects. Weiss-white matter interface is normal. Diffusion weighted images show no acute infarct. Brainstem appears normal. Normal intravascular flow voids are present. Age-related volume loss and age-appropriate, moderate small vessel ischemic change. No abnormal intracranial enhancement. Skull and face: Calvarial marrow signal is normal. Orbits appear normal. Sinuses: Sinuses and mastoids are clear. BRAIN MR ANGIOGRAM: Anterior circulation: Intracranial internal carotid arteries are normal in size and enhancement. The flow within the paired anterior cerebral arteries is normal and symmetric. The flow within the middle cerebral arteries is normal and symmetric. The anterior communicating artery is seen. No stenoses, occlusions, or aneurysms. Posterior circulation: The visualized portions of the vertebral arteries demonstrate normal caliber, and join to form a normal appearing basilar artery. The flow within the posterior cerebral arteries is normal and symmetric. No stenoses, occlusions, or aneurysms. NECK MR ANGIOGRAM: Carotids: Great vessels demonstrate a conventional anatomy as they arise from the aortic arch. The origins of the common carotid arteries appear patent. The calibers and courses of both common carotid arteries are normal. The bifurcation regions appear normal bilaterally. The internal carotid arteries demonstrate normal course and caliber. Posterior circulation: The origins of the vertebral arteries appear patent. More superior portions of both vertebral arteries demonstrate normal course and caliber, and join to form a normal appearing basilar artery. Miscellaneous: Subclavian arteries appear patent. Pre-contrast images through the neck show no soft tissue abnormalities. IMPRESSION: BRAIN MRI: 1. Age related volume loss and age-appropriate small-vessel ischemic change. 2. No acute intracranial process. BRAIN MR ANGIOGRAM: Unremarkable. No stenosis, aneurysm, occlusion, or focal filling defect. NECK MR ANGIOGRAM: Patent carotids. Dictated by: Berny Hurtado M.D. on 05/09/2023 at 9:53 Approved by: Berny Hurtado M.D. on 05/09/2023 at 10:00
== END ==
LOC: MRI 07:44
PROVIDERS: PCP Internal Medicine; Referring Provider Internal Medicine; Visit Provider Internal Medicine
DX: R29.898 Other symptoms and signs involving the musculoskeletal system (principal); R25.1 Tremor, unspecified
CPT/HCPCS: 70548; 70553; A9579

== ENCOUNTER → 2023-08-24 06:37 | Outpatient (CLI) | payer MEDICARE, OTHER, SELFPAY ==
[2023-04-17 04:32] VITALS: BMI 20.9
[2023-08-24 08:17] LABS: Hemoglobin A1C% w Est Avg Glu 5.4 % (4.0-6.0)
[2023-08-24 08:36] LABS: Alanine Aminotransferase 19 IU/L (<50); Albumin 3.7 g/dL (3.5-5.0); Albumin Globulin Ratio 1.4 (1.0-2.8); Alkaline Phosphatase 60 U/L (38-126); Aspartate Aminotransferase 30 IU/L (17-59); BUN Creatinine Ratio 24.7 (6-22); Bilirubin Total 0.7 mg/dL (0.2-1.3); Blood Urea Nitrogen 19 mg/dL (9-20); Calcium 8.7 mg/dL (8.4-10.2); Carbon Dioxide 27 mmol/L (22-32); Chloride 110 mmol/L (98-107); Cholesterol 125 mg/dL (140-199); Estimated Glomerular Filt Rate > 60 mL/min (>60); Globulin 2.7 g/dL (1.7-4.1); Glucose 84 mg/dL (80-110); HDL Cholesterol 47 mg/dL (40-60); HEMOLYSIS < 15 (0-50); LDL Cholesterol Calculated 63 mg/dL (<100); Potassium 4.4 mmol/L (3.4-5.1); Sodium 141 mmol/L (137-145); Total Protein 6.4 g/dL (6.3-8.2); Triglycerides 76 mg/dL (35-150)
== END ==
LOC: LAB 06:39
PROVIDERS: PCP Internal Medicine; Referring Provider Internal Medicine; Visit Provider Internal Medicine
DX: E11.9 Type 2 diabetes mellitus without complications (principal); I10 Essential (primary) hypertension; E78.2 Mixed hyperlipidemia
CPT/HCPCS: 36415; 80053; 80061; 83036

== ENCOUNTER → 2024-02-23 06:57 | Outpatient (CLI) | payer MEDICARE, OTHER, SELFPAY ==
[2023-04-17 04:32] VITALS: BMI 20.9
[2024-02-23 08:11] LABS: Hemoglobin A1C% w Est Avg Glu 6.9 % (4.0-6.0)
[2024-02-23 08:33] LABS: Alanine Aminotransferase 24 IU/L (<50); Albumin 4.2 g/dL (3.5-5.0); Albumin Globulin Ratio 1.8 (1.0-2.8); Alkaline Phosphatase 59 U/L (38-126); Aspartate Aminotransferase 26 IU/L (17-59); Bilirubin Total 0.6 mg/dL (0.2-1.3); Blood Urea Nitrogen 20 mg/dL (9-20); Calcium 9.7 mg/dL (8.4-10.2); Carbon Dioxide 26 mmol/L (22-32); Chloride 107 mmol/L (98-107); Cholesterol 134 mg/dL (140-199); Estimated Glomerular Filt Rate > 60 mL/min (>60); Globulin 2.3 g/dL (1.7-4.1); Glucose 154 mg/dL (80-110); HDL Cholesterol 43 mg/dL (40-60); HEMOLYSIS < 15 (0-50); LDL Cholesterol Calculated 76 mg/dL (<100); Sodium 139 mmol/L (137-145); Total Protein 6.5 g/dL (6.3-8.2); Triglycerides 77 mg/dL (35-150)
[2024-02-23 10:25] LABS: Microalbumin Urine Random 10.2 mg/dL (0-1.6)
== END ==
PROVIDERS: PCP Internal Medicine; Referring Provider Internal Medicine; Visit Provider Internal Medicine
DX: E11.9 Type 2 diabetes mellitus without complications (principal); I10 Essential (primary) hypertension; E78.2 Mixed hyperlipidemia
CPT/HCPCS: 36415; 80053; 80061; 82043; 82570; 83036

== ENCOUNTER → 2024-03-16 07:17 | Outpatient (CLI) | payer MEDICARE, OTHER, SELFPAY ==
[2023-04-17 04:32] VITALS: BMI 20.9
--- NOTE | 2024-03-16 | DI.MRI.S_ITS ---
PROCEDURE: MR HIP LT WO CON INDICATIONS: left hip OA TECHNIQUE: Noncontrast coronal T1 spin echo and STIR through the bony pelvis. Coronal and axial T2 fast spin echo with fat saturation, sagittal T1 spin echo, and oblique axial T2 fast spin echo with fat saturation through the hip. COMPARISON: [facility], CR, XR PELVIS WITH LATERAL HIP LEFT, 03/13/2024, 15:44. FINDINGS: Image quality: Excellent. Bones and joints: Bone marrow of the pelvic ring and proximal femurs show normal signal throughout. No intraosseous lesions or fractures. No avascular necrosis of the femoral head. Multilevel degenerative disc disease and facet hypertrophy in the included spine. Tendons and ligaments: Moderate distal gluteus medius and minimus tendinosis. The proximal iliotibial band appears intact. Small amount of fluid is seen in the iliopsoas bursa. The iliopsoas tendon appears intact. The origin of the hamstring tendon is intact at the ischial tuberosity. The tendons for the direct and indirect heads of the rectus femoris muscle appear intact. Labrum and cartilage: Moderate to high-grade partial-thickness cartilage loss at the superior hip with small marginal osteophytes. Diffuse labral degeneration with areas of chronic degenerative tearing superiorly. No significant hip effusion. Soft tissues: Visualized muscles demonstrate normal bulk and internal signal. Quadratus femoris muscle demonstrates no internal edema to suggest ischiofemoral impingement. The proximal sciatic neurovascular bundle appears normal adjacent to the hamstring tendons. Multiple diverticula in the colon. Pelvic soft tissues demonstrate no acute abnormality. IMPRESSION: 1. Grade 2-3 chondromalacia in the superior left hip with small marginal osteophytes. Diffuse labral degeneration with chronic degenerative tearing superiorly. 2. Moderate distal left gluteus medius and minimus tendinosis. 3. Small iliopsoas bursal effusion or mild bursitis. 4. Multilevel degenerative changes in the included spine. Approved by: Gabriel Dubon M.D. on 03/18/2024 at 20:36
== END ==
PROVIDERS: PCP Internal Medicine; Referring Provider Orthopaedic Surgery; Visit Provider Orthopaedic Surgery
DX: S76.092A Other specified injury of muscle, fascia and tendon of left hip, initial encounter (principal); S73.192A Other sprain of left hip, initial encounter; M94.252 Chondromalacia, left hip; X58.XXXA Exposure to other specified factors, initial encounter
CPT/HCPCS: 73721

== ENCOUNTER 2024-04-18 08:08 | Emergency (ER) | payer MEDICARE, OTHER, SELFPAY ==
[2023-04-17 04:32] VITALS: BMI 20.9
[2024-04-18] VITALS (12 sets, daily range): BP systolic 144–156; BP diastolic 67–79; PULSE 81–104; RESP 16–24; TEMP 37; O2SAT 96–99; BMI 22.1
--- NOTE | 2024-04-18 08:22 | DI.RAD.S_ITS ---
PROCEDURE: XR CHEST 1V INDICATIONS: chest pain TECHNIQUE: One view of the chest was acquired. COMPARISON: [facility], CR, XR CHEST 1V, 04/16/2023, 13:09. FINDINGS: Surgical changes and devices: None. Lungs and pleura: Lungs are clear. No pleural effusions or pneumothorax. Mediastinum: Mediastinal contours appear normal. Heart size is normal. Bones and chest wall: No suspicious bony lesions. Overlying soft tissues appear unremarkable. IMPRESSION: No acute pulmonary process. Dictated by: Sophie Joshi M.D. on 04/18/2024 at 8:46 Approved by: Sophie Joshi M.D. on 04/18/2024 at 8:48
--- NOTE | 2024-04-18 08:22 | EKG_ITS ---
[address] [id number] [address] [address] Test Date: 2024-04-18 Pat Name: Roger Roa Department: Room: Gender: Male Rn Long Term Care: KELI : 1955 Requested By: Order Number: [id number] Reading MD: Aristides Ovalle MD Measurements Intervals [place] Rate: 91 P: 52 NV: 162 QRS: 39 QRSD: 92 T: 54 QT: 364 QTc: 447 Interpretive Statements Normal sinus rhythm Electronically Signed On 04-19-2024 6:49:32 PST by Aristides Ovalle MD
--- NOTE | 2024-04-18 08:41 | ED_ITS ---
HPI - General Adult General Chief complaint: Altered Mental Status Stated complaint: Weakness in legs Time Seen by Provider: 04/18/24 08:40 Source: patient, family, EMS, RN notes reviewed and old records reviewed Mode of arrival: EMS History of Present Illness HPI narrative: 69-year-old male history of hypertension, dyslipidemia, diabetes with chronic hip pain, Parkinson's diagnosis per (patient denies). Patient presents with legs giving out several times at home and sounds like had a issue of urinating on himself unclear if this was incontinence or just could not make it to the bathroom. Patient seems sleepy he was yawning frequently but otherwise has clear speech. Patient states he was not sure why he was here initially. He denies any fevers or chills, denies headaches, denies vision changes, denies chest pain or shortness of breath denies any nausea or vomiting, no issues with bowel movements. He denies any other urinary changes or incontinence otherwise. Patient denies any numbness, tingling or weakness or difficulty with moving extremities. He does note that his legs did give out earlier when asked specifically but does not share this information. Patient states he takes medications including lisinopril, atorvastatin medication for diabetes and hydrocodone regularly. Denies any aspirin or other thinners. States no prior strokes heart attacks or cardiac stents. Denies prior surgeries. No known drug allergies. States he smokes about a half pack daily, denies regular alcohol or recreational drugs. States his primary care is Dr. Ovalle. He lives with his whom nursing contacted. Nursing notes told them that she had influenza recently. Related Data Home Medications Medication Instructions Recorded Confirmed celecoxib 200 mg capsule 200 mg PO DAILY 04/16/23 03/11/24 Previous Rx's Medication Instructions Recorded aspirin 81 mg tablet,delayed 81 mg PO DAILY #180 tabs 01/15/19 release blood-glucose meter #1 ea 08/10/21 blood sugar diagnostic (Blood #100 ea 02/10/23 Glucose Test strips) lancets 33 gauge #100 ea 02/10/23 atorvastatin 80 mg tablet (Lipitor) 80 mg PO QDAY #90 tabs 07/21/23 lisinopril 10 mg tablet 10 mg PO QDAY #90 tabs 07/21/23 glipizide 10 mg tablet, extended 10 mg PO BID #180 tabs 09/01/23 release 24 hr metformin 1,000 mg tablet 1,000 mg PO BID #180 tabs 01/12/24 hydrocodone 5 mg-acetaminophen 325 1 - 2 tab PO Q4H PRN pain #60 tabs 03/11/24 mg tablet hydrocodone 5 mg-acetaminophen 325 1 - 2 tab PO Q4H PRN pain #60 tabs 03/11/24 mg tablet hydrocodone 5 mg-acetaminophen 325 1 - 2 tab PO Q4H PRN pain #60 tabs 03/11/24 mg tablet Allergies Allergy/AdvReac Type Severity Reaction Status Date / Time No Known Allergies Allergy Unknown Verified 03/11/24 09:41 [NO KNOWN ALLERGIES] Review of Systems Review of Systems ROS Unobtainable: All systems reviewed & are unremarkable except as noted in HPI and below Patient History Medical History Uncomplicated opioid dependence Insomnia BPH w urinary obs/LUTS Seasonal allergies Diverticular disease Hypertension Hyperlipidemia Surgical History H/O umbilical hernia repair History of colonoscopy Status post tonsillectomy and adenoidectomy Social History household members: spouse Smoking Status: Current every day smoker alcohol intake: former Smoking Status: Current every day smoker Exam Narrative Exam Narrative: GEN: well nourished, well appearing male, alert and oriented to self and location, answers majority of questions appropriately but some short term answers does not seem to know, patient appears to be in mild distress. HEENT: Atraumatic, pupils are equal round reactive to light, extraocular movements are intact, nares are clear, TMs are clear with no fluid, there is no conjunctival pallor. Throat is clear without any exudates, erythema, tonsillar enlargement or uvular deviation, no facial droop HEART: Regular rate and rhythm without murmur, clicks, rubs. Pulses are equal in upper and lower extremities LUNGS:Lungs clear to auscultation, no wheezes, rales, crackles, chest moves symmetrically ABD:bowel sounds normal, soft, non-tender, no guarding, rebound, rigidity, no masses noted, no hepatosplenomegaly :No CVA tenderness MSCL: Non-tender, no muscle atrophy, muscles strength 5/5 upper and lower extremities, full range of motion. NEURO:CN 2-12 intact, sensation normal, finger nose finger test normal, heel hoyt test normal SKIN: No rash, petechiae, erythema or other skin changes noted Initial Vital Signs Initial Vital Signs: Vital Signs Pulse Rate 97 H 04/18/24 08:20 Pulse Oximetry 98 04/18/24 08:20 Course Orders Ordered: Discontinued Medications Aspirin (Aspirin 81 Mg Chew Tab) 324 mg PO NOW ONE Stop: 04/18/24 08:22 Last Admin: 04/18/24 11:28 Dose: Not Given Documented By: SPF Vital Signs Vital signs: Vital Signs - 8 hr 04/18/24 08:20 04/18/24 08:22 04/18/24 08:30 Temperature 98.6 F Pulse Rate 97 H 104 H Respiratory Rate 16 Blood Pressure 144/67 H 147/75 H Pulse Oximetry 98 96 Oxygen Delivery Method Room Air 04/18/24 08:30 04/18/24 09:00 04/18/24 09:00 Temperature Pulse Rate 92 H 92 H Respiratory Rate 17 Blood Pressure 150/75 H Pulse Oximetry 97 97 Oxygen Delivery Method 04/18/24 09:11 04/18/24 09:11 04/18/24 09:30 Temperature Pulse Rate 84 98 H Respiratory Rate 22 24 Blood Pressure 152/77 H Pulse Oximetry 99 97 Oxygen Delivery Method 04/18/24 09:31 04/18/24 09:31 04/18/24 09:49 Temperature Pulse Rate 98 H Respiratory Rate 24 Blood Pressure 149/77 H 149/76 H Pulse Oximetry 98 Oxygen Delivery Method 04/18/24 09:49 04/18/24 10:00 04/18/24 10:00 Temperature Pulse Rate 84 81 Respiratory Rate 18 19 Blood Pressure 156/79 H Pulse Oximetry 99 97 Oxygen Delivery Method 04/18/24 10:30 04/18/24 10:30 04/18/24 11:00 Temperature Pulse Rate 82 81 Respiratory Rate 19 Blood Pressure 155/72 H Pulse Oximetry 99 Oxygen Delivery Method Medical Decision Making Lab Data 04/18/24 08:43 04/18/24 08:43 Labs: Lab Results 04/18/24 Range/Units 08:43 WBC 7.6 (4.5-11.0) X10^3/uL RBC 4.16 L (4.5-5.9) X10^6/uL Hgb 13.4 L (13.5-17.5) g/dL Hct 40.1 L (41-53) % MCV 96.4 (80-100) fL MCH 32.2 (26-34) PG MCHC 33.4 (30-36) % RDW 13.7 (11.6-14.8) % Plt Count 204 (150-400) X10^3/uL Neut % (Auto) 76.2 H (50-75) % Lymph % (Auto) 8.8 L (25-40) % [place] % (Auto) 11.5 (3-14) % Eos % (Auto) 2.9 (2-4) % Baso % (Auto) 0.6 (0-2) % Neut # (Auto) 5800 (0206-5693) /uL Lymph # (Auto) 700 L (7385-4296) /uL [place] # (Auto) 900 (0-900) /uL Eos # (Auto) 200 (0-450) /uL Baso # (Auto) 0 (0-100) /uL PT 11.8 (9.4-12.5) SECONDS INR 1.0 (0.9-1.3) APTT 34 (25.1-36.5) SECONDS Sodium 135 L (137-145) mmol/L Potassium 4.9 (3.4-5.1) mmol/L Chloride 106 (98-107) mmol/L Carbon Dioxide 19 L (22-32) mmol/L BUN 15 (9-20) mg/dL Creatinine 0.81 (0.66-1.25) mg/dL Estimated GFR > 60 (>60) mL/min BUN/Creatinine Ratio 18.5 (6-22) Glucose 116 H (80-110) mg/dL Calcium 9.2 (8.4-10.2) mg/dL Magnesium 1.7 (1.6-2.3) mg/dL Total Bilirubin 0.9 (0.2-1.3) mg/dL AST 40 (17-59) IU/L ALT 27 (<50) IU/L Alkaline Phosphatase 40 (38-126) U/L Total Creatine Kinase 46 L (55-170) U/L Troponin I < 0.012 (0.01-0.034) ng/mL NT-Pro-B Natriuret Pep 316 H (<125) pg/mL Total Protein 7.3 (6.3-8.2) g/dL Albumin 4.6 (3.5-5.0) g/dL Globulin 2.7 (1.7-4.1) g/dL Albumin/Globulin Ratio 1.7 (1.0-2.8) Lipase 78 (23-300) U/L Urine Dip Bedside Urine Glucose Negative Bedside Urine Bilirubin - Negative Bedside Urine Ketone - Negative Urine Specific [place] 1.015 Bedside Urine Occult Blood +/- Bedside Urine pH 7.5 Bedside Urine Protein +/- 15 Bedside Urine Urobilinogen - Negative Bedside Urine Nitrite - Negative Bedside Urine Leukocytes - Negative Esterase Point of care testing: Urine Dip Bedside Urine Glucose Negative Bedside Urine Bilirubin - Negative Bedside Urine Ketone - Negative Urine Specific [place] 1.015 Bedside Urine Occult Blood +/- Bedside Urine pH 7.5 Bedside Urine Protein +/- 15 Bedside Urine Urobilinogen - Negative Bedside Urine Nitrite - Negative Bedside Urine Leukocytes - Negative Esterase ECG Data Attestation: I personally reviewed and interpreted this ECG as follows: Interpretation: Sinus rhythm rate of 91, [place] 162 QRS of 92 QTC of 447. MDM Narrative Medical decision making narrative: Labs show white count of 7.6 hemoglobin of 13.4 appears consistent priors platelets of 204. Coags are negative sodium is 135 CO2 is 19 otherwise normal electrolytes glucose is 116 LFTs are negative troponins less than 0.0125 with a BNP of 316 lipase is 78. EKG shows sinus rhythm rate of [address] shows moderate microvascular atherosclerotic change deep white matter each hemisphere previously Chest x-ray shows no acute change Point of care urine shows protein no leuks no nitrates. Patient was able to ambulate here with staff. Unclear his baseline mental but he was answering questions overall appropriately. He wishes to discharge home. Reported have a fall earlier today and have weak legs. Patient indicates he is not very excited to have a workup today but thus far other than having a RSV/COVID/influenza swab he has been cooperative. Patient's did note that she was recently had influenza so this maybe a portion of his symptoms. He appears appropriate for discharge home at this time Discharge Plan Departure Patient Disposition: Home Clinical Impression: Weakness Activity Restrictions/Additional Instructions: Please follow up for recheck. Your workup today did not show any acute change or clear cause of your symptoms. We did not obtain a influenza/RSV/COVID swab because you declined it and so you are not tested for this. Please return for new or worsening changes, fevers, changes to mentation, new chest pain or shortness of breath, persistent vomiting, new swelling in your extremities, increasing or new weakness or other new or concerning changes. Prescriptions: No Action aspirin 81 mg tablet,delayed release (DR/EC) 81 mg PO DAILY Qty: 180 1RF (DME) blood-glucose meter Kit See Rx Instructions .Route Qty: 1 0RF Rx Instructions: Use to check Blood Sugars 1x a day. lisinopril 10 mg tablet 10 mg PO QDAY Qty: 90 3RF atorvastatin [Lipitor] 80 mg tablet 80 mg PO QDAY Qty: 90 3RF metformin 1,000 mg tablet 1,000 mg PO BID Qty: 180 1RF glipizide 10 mg tablet extended release 24hr 10 mg PO BID Qty: 180 3RF (DME) Blood Glucose Test Strip See Rx Instructions .Route Qty: 100 3RF Rx Instructions: Use to check Blood Sugars 1x a day (DME) lancets 33 gauge misc See Rx Instructions .Route Qty: 100 3RF Rx Instructions: Use to check BS once a day hydrocodone-acetaminophen 5-325 mg tablet 1 - 2 tab PO Q4H MDD 2 tabs PRN (Reason: pain) Qty: 60 0RF hydrocodone-acetaminophen 5-325 mg tablet 1 - 2 tab PO Q4H MDD 2 tabs PRN (Reason: pain) Qty: 60 0RF hydrocodone-acetaminophen 5-325 mg tablet 1 - 2 tab PO Q4H MDD 2 tabs PRN (Reason: pain) Qty: 60 0RF Patient Comments: Doesn't take every day, if he does, usually half a tab celecoxib 200 mg capsule 200 mg PO DAILY Referrals: Aristides Ovalle MD [Primary Care Provider] - Stand Alone Forms: Patient Portal/API/Survey
--- NOTE | 2024-04-18 08:52 | DI.CT.S_ITS ---
PROCEDURE: CT HEAD/BRAIN WO CON INDICATIONS: legs feel week TECHNIQUE: Noncontrast 4.5 mm thick angled axial sections acquired from the foramen magnum to the vertex, with coronal and sagittal reformats. For radiation dose reduction, the following was used: automated exposure control, adjustment of mA and/or kV according to patient size. COMPARISON: [facility], CT, CT HEAD/BRAIN WO CON, 04/16/2023, 13:16. FINDINGS: Image quality: Diagnostic. CSF spaces: Basal cisterns are patent. No extra-axial fluid collections. The ventricles are symmetric in size and shape. Brain: No intracranial bleeds or masses. There is cerebral volume loss for age, with resultant ventricular and sulcal prominence. There are periventricular and deep white matter chronic small vessel ischemic changes. There is intracranial internal carotid artery atherosclerosis. Skull and face: Calvarium and visualized facial bones appear intact, without suspicious lesions. Sinuses: Visualized sinuses and mastoids are clear. IMPRESSION: Moderate microvascular atherosclerotic change in the deep white matter of each hemisphere, previously present. No acute disease. Dictated by: Gato Reddy M.D. on 04/18/2024 at 9:17 Approved by: Gato Rdedy M.D. on 04/18/2024 at 9:18
[2024-04-18 08:53] LABS: Add Manual Diff / Slide Review NO; Basophils Absolute Auto 0 /uL (0-100); Basophils Percent Auto 0.6 % (0-2); Eosinophils Absolute Auto 200 /uL (0-450); Eosinophils Percent Auto 2.9 % (2-4); Hematocrit 40.1 % (41-53); Hemoglobin 13.4 g/dL (13.5-17.5); Lymphocytes Absolute Auto 700 /uL (1100-4500); Lymphocytes Percent Auto 8.8 % (25-40); Mean Corpuscular HGB Conc 33.4 % (30-36); Mean Corpuscular Hemoglobin 32.2 PG (26-34); Mean Corpuscular Volume 96.4 fL (80-100); Monocytes Absolute Auto 900 /uL (0-900); Monocytes Percent Auto 11.5 % (3-14); Neutrophils Absolute Auto 5800 /uL (1500-7000); Neutrophils Percent Auto 76.2 % (50-75); Platelet Count 204 X10^3/uL (150-400); Red Blood Cell Count 4.16 X10^6/uL (4.5-5.9); Red Cell Distribution Width 13.7 % (11.6-14.8); White Blood Cell Count 7.6 X10^3/uL (4.5-11.0)
--- NOTE | 2024-04-18 08:58 | PC.NURSE ---
Pt refusing PCR covid swab at this time. two attempts to obtain test done with education provided to patient. Provider made aware @3042.
[2024-04-18 09:03] LABS: Prothrombin Time 11.8 SECONDS (9.4-12.5)
[2024-04-18 09:06] LABS: PTT Partial Thromboplastin Tim 34 SECONDS (25.1-36.5)
[2024-04-18 10:24] LABS: Alanine Aminotransferase 27 IU/L (<50); Albumin 4.6 g/dL (3.5-5.0); Albumin Globulin Ratio 1.7 (1.0-2.8); Alkaline Phosphatase 40 U/L (38-126); Aspartate Aminotransferase 40 IU/L (17-59); BUN Creatinine Ratio 18.5 (6-22); Bilirubin Total 0.9 mg/dL (0.2-1.3); Blood Urea Nitrogen 15 mg/dL (9-20); Calcium 9.2 mg/dL (8.4-10.2); Carbon Dioxide 19 mmol/L (22-32); Chloride 106 mmol/L (98-107); Creatine Kinase 46 U/L (55-170); Estimated Glomerular Filt Rate > 60 mL/min (>60); Globulin 2.7 g/dL (1.7-4.1); Glucose 116 mg/dL (80-110); Lipase 78 U/L (23-300); Magnesium 1.7 mg/dL (1.6-2.3); Sodium 135 mmol/L (137-145); Total Protein 7.3 g/dL (6.3-8.2)
[2024-04-18 10:26] LABS: HEMOLYSIS 133 (0-50); Potassium 4.9 mmol/L (3.4-5.1)
[2024-04-18 10:37] LABS: NT-proBNP (BNP-Adult 18+) 316 pg/mL (<125); Troponin I < 0.012 ng/mL (0.01-0.034)
--- NOTE | 2024-04-18 11:44 | PC.NURSE ---
Patient is stating that he wants to go home. He does not want to be here. Provider notified.
--- NOTE | 2024-04-18 11:45 | PC.NURSE ---
Attempted to swap the patient for Resp 4 pack. Patient could not tolerate the swab. He stated you're going to have to tie me down.
--- NOTE | 2024-04-18 11:51 | PC.NURSE ---
IV placed by another nurse
--- NOTE | 2024-04-18 12:11 | PC.NURSE ---
Patient reports feeling better and is ambulating independently without signs of weakness. He states that he wants to go home and be in his bed. He stated that he never wanted to come and is just needing sleep and he'll feel better.
== END 2024-04-18 12:23 | disposition home or self-care (01) ==
PROVIDERS: Emergency Provider Emergency Medicine; PCP Internal Medicine
DX: R53.1 Weakness (principal); I67.2 Cerebral atherosclerosis; E11.9 Type 2 diabetes mellitus without complications; I10 Essential (primary) hypertension; E78.5 Hyperlipidemia, unspecified; R29.6 Repeated falls; G89.29 Other chronic pain; M25.559 Pain in unspecified hip; F17.210 Nicotine dependence, cigarettes, uncomplicated; Z79.84 Long term (current) use of oral hypoglycemic drugs
CPT/HCPCS: 70450; 71045; 80053; 81003; 82550; 83690; 83735; 83880; 84484; 85025; 85610; 85730; 93005; 93010; 99284; 99285

== ENCOUNTER → 2024-07-04 10:42 | Outpatient (CLI) | payer MEDICARE, OTHER, SELFPAY ==
[2023-04-17 04:32] VITALS: BMI 20.9
[2024-07-04 11:30] LABS: Hemoglobin A1C% w Est Avg Glu 7.1 % (4.0-6.0)
[2024-07-04 11:46] LABS: Alanine Aminotransferase 16 IU/L (<50); Albumin 4.9 g/dL (3.5-5.0); Alkaline Phosphatase 80 U/L (38-126); Aspartate Aminotransferase 21 IU/L (17-59); BUN Creatinine Ratio 23.5 (6-22); Bilirubin Total 0.8 mg/dL (0.2-1.3); Blood Urea Nitrogen 20 mg/dL (9-20); Calcium 9.9 mg/dL (8.4-10.2); Carbon Dioxide 23 mmol/L (22-32); Chloride 103 mmol/L (98-107); Cholesterol 159 mg/dL (140-199); Estimated Glomerular Filt Rate > 60 mL/min (>60); Globulin 2.5 g/dL (1.7-4.1); Glucose 156 mg/dL (70-99); HDL Cholesterol 42 mg/dL (40-60); HEMOLYSIS < 15 (0-50); LDL Cholesterol Calculated 94 mg/dL (<100); Potassium 4.5 mmol/L (3.4-5.1); Sodium 136 mmol/L (137-145); Total Protein 7.4 g/dL (6.3-8.2); Triglycerides 113 mg/dL (35-150)
== END ==
PROVIDERS: Family Provider Internal Medicine; PCP Internal Medicine; Referring Provider Internal Medicine; Visit Provider Internal Medicine
DX: E11.9 Type 2 diabetes mellitus without complications (principal); E78.2 Mixed hyperlipidemia; I10 Essential (primary) hypertension
CPT/HCPCS: 36415; 80053; 80061; 83036

== ENCOUNTER 2024-07-19 08:15 | Outpatient (RCR) | payer MEDICARE, OTHER, SELFPAY ==
[2023-04-17 04:32] VITALS: BMI 20.9
--- NOTE | 2024-06-05 15:15 | PT.OIE ---
Current Diagnoses Muscle weakness (generalized) (06/05/24) Unsteadiness on feet (06/05/24) Other abnormalities of gait and mobility (06/05/24) Unspecified abnormalities of gait and mobility (06/05/24) Past Medical History (Last Updated 05/03/24 @ 10:47 by Aristides Ovalle MD) BPH w urinary obs/LUTS Diverticular disease Hyperlipidemia Hypertension Insomnia Parkinson disease Seasonal allergies Uncomplicated opioid dependence Past Surgical History (Last Reviewed 04/23/24 @ 11:16 by Aristides Ovalle MD) H/O umbilical hernia repair History of colonoscopy Status post tonsillectomy and adenoidectomy Visit Care Team Role Provider Type Aristides Ovalle MD Attending Provider Physician Family Provider Primary Care Provider Referring Provider Specialty: Internal Medicine Address: [address] [place] [address], [address], [facility] Email: [email or web address] Physical Therapy Initial Evaluation PT-OP-A Visit Information Start: 06/05/24 10:33 Freq: Status: Active Protocol: Document 06/05/24 09:50 DCW (Rec: 06/05/24 10:37 DCW [id number]) Out-Patient Physical Therapy Visit Information Visit Information Visit Type Initial Evaluation Visit Start Time 09:50 Visit Stop Time 10:30 Visit Number 1 Number of SENIOR EXAMINER Visits 0 Evaluation Information Evaluation Date 06/05/24 PT-OP-B Current Condition Start: 06/05/24 10:33 Freq: Status: Active Protocol: Document 06/05/24 09:50 DCW (Rec: 06/05/24 15:04 DCW [id number]) Current Condition History of Current Condition Onset Date One year history Current Complaints Decreased ambulation and balance ability History of Current Condition Pt is a 69 year old male presenting with a one year history of decreased balance and difficulty ambulating. Pt' s main focus in ongoing left hip problems, with his hip being sore and weak, strongly feels he needs a hip replacement, but he reports his ortho will not agree to do one, for unknown reasons. Pt denies use of any assistive devices, feels that his balance varies a lot day to day. Feels he is fine some days, and other days he can barely move. Has a tendency to retro lean in standing. PT-OP-C Subjective Start: 06/05/24 10:33 Freq: Status: Active Protocol: Document 06/05/24 09:50 DCW (Rec: 06/05/24 10:37 DCW [id number]) OP-PT Subjective Patient Comments Patient Comments Pt very focused on his desire for a hip replacement, notes he does not understand why he seems to not be able to get one. PT-OP-D Balance Start: 06/05/24 10:33 Freq: Status: Active Protocol: Document 06/05/24 09:50 DCW (Rec: 06/05/24 10:37 DCW [id number]) OP-PT Balance Assessment Sitting Balance Static Sitting Balance Ability Good Dynamic Sitting Balance Ability Good Standing Balance Static Standing Balance Ability Poor Dynamic Standing Balance Ability Poor Device Used None Balance Tests De Oliveira Balance Test De Oliveira Balance Test Score 34/56 De Oliveira Impairment Rating 20 to 39% Impaired (Score 34- 44) De Oliveira Balance Assessment Evaluation Sitting to Standing Ability Independent w/Hands Unsupported Stance 30 seconds Sitting Unsupported, Feet on Floor Safely- 2 minutes Standing to Sitting Ability Assist, Use Legs on Chair Transfer Ability Safely, Hand Use Unsupported Stance- Eyes Closed Supervision, 10 seconds Unsupported Stance- Eyes Open Independent, <30 seconds Reaching Forward Standing Safely, 5 inches Pick- Up Object From Floor Supervision Look Behind Shoulder - Standing Shifts Weight Well Turning 360 Degrees Turns slowly, but safely Unsupported Stance, Alternating Feet on 2 Steps w/Minimum Assist Stair Unsupported Tandem Stance Small Step- 30 seconds Unilateral Leg Stance Unable,assist to not fall Total Score De Oliveira Total Score (out of 56 points) 34 De Oliveira Impairment Rating 20 to 39% Impaired (Score 34- 44) Henry Fall Scale Copyright Permission PT-OP-G Mobility & Gait Start: 06/05/24 10:33 Freq: Status: Active Protocol: Document 06/05/24 09:50 DCW (Rec: 06/05/24 10:40 DCW [id number]) OP Gait Assessment Gait Gait Assistance Required: Standby Assistance Assistive Devices Assistive Device None Gait Deviations General Gait Pattern Antalgic,Ataxic,Decreased Stride Length,Decreased Feet Clearance,Flexed Trunk,Wide Based Gait Factors Limiting Gait Function Factors Limiting Gait Function Decreased Activity Tolerance, Decreased Strength,Limited Range of Motion,Pain,Poor Balance,Poor Safety Awareness Comments Gait Comments Pt ambulates with bilateral toe out and a wide HARSHA. Exhibits trendelenberg gait pattern. Knees and hips remain flexed throughout gait. Decreased foot clearance, increased path deviation PT-OP-J Posture/Palpation/Skin Start: 06/05/24 15:13 Freq: Status: Active Protocol: Document 06/05/24 09:50 DCW (Rec: 06/05/24 15:14 DCW [id number]) Posture Evaluation Position Standing Evaluation View Lateral Head/C-Spine Posture Flexed T-Spine Posture Increased Kyphosis L-Spine Posture Flexed Hip Posture (L) Flexed,(R) Flexed Knee Posture (L) Excess Flexion,(R) Excess Flexion PT-OP-M Strength Start: 06/05/24 10:33 Freq: Status: Active Protocol: Document 06/05/24 09:50 DCW (Rec: 06/05/24 10:40 DCW [id number]) Hip Strength Hip Manual Muscle Testing Right Flexion (L2) 4 Good Extension (S1) 4- Good- Abduction 4- Good- Adduction 4- Good- External Rotation 4+ Good+ Internal Rotation 4+ Good+ Left Flexion (L2) 4 Good Extension (S1) 4- Good- Abduction 4- Good- Adduction 4- Good- External Rotation 4+ Good+ Internal Rotation 4+ Good+ Knee Strength Knee Manual Muscle Testing Right Flexion (S2) 4- Good- Extension (L3) 4 Good Left Flexion (S2) 4- Good- Extension (L3) 4 Good Ankle/Foot Strength Ankle and Foot Manual Muscle Testing Right Dorsiflexion (L4) 4 Good Left Dorsiflexion (L4) 3- Fair- PT-OP-T Assessment and Plan Start: 06/05/24 10:33 Freq: Status: Active Protocol: Document 06/05/24 09:50 DCW (Rec: 06/05/24 15:13 DCW [id number]) Physical Therapy Assessment Rehab Potential Rehabilitation Potential Fair Evaluation Complexity Number of Personal Factors/Comorbidities 3 or More Number of Body Systems Impaired 4 or More Clinical Presentation at Evaluation Unstable Impairments Impairments Activity Tolerance,Balance, Functional Activities, Functional Mobility,Gait, Strength,Transfers Goals Three Impairment Pt posture in standing constant hip and knee flexion Correction Goal (LTG) Pt to stand with fully extended hips and knees 50% of the time without cues in order to decrease retro lean. LTG Duration 08/05/24 Two Impairment Pt presents with DGI score of 34/56, indicating an increased risk of falls Correction Goal (LTG) Pt to improve DGI score by at least seven points to 41/56, in order to demonstrate a decreased risk of falls LTG Duration 08/05/24 One Impairment Pt does not have an appropriate home exercise program Short Term Goal (STG) Pt to be independent and compliant with an appropriate HEP STG Duration 07/05/24 Assessment Summary Assessment Pt presents with signs and symptoms consistent with referring diagnosis. DGI indicates a fairly significant increased risk of falls, although pt at this time refuses use of AD for stability. Exhibits poor posture in standing, with hips and knees at 20? flexed, pt denies ability to straighten further., which results in retro lean with standing and ambulation. Pt also exhibits L>R hip weakness, as well as decreased left ankle dorsiflexion, resulting in decreased quality of gait. Pt should benefit from skilled therapeutic intervention focusing on improving LE strength, posture, balance training, gait training, and improving activity tolerance. Physical Therapy Plan Frequency and Duration Frequency of Treatment 2x/Week Plan of Care Start Date 06/05/24 Plan of Care End Date 08/05/24 Therapeutic Interventions Therapeutic Interventions Balance Training,Gait Training ,Home Exercise Program,Joint Mobilizations,Manual Therapy, Neuromuscular Re-education, Patient/Caregiver Education, Self-Care/Home Management,Soft Tissue Mobilization, Therapeutic Activities, Therapeutic Exercises Modalities Cold Pack/Ice Massage,Hot Packs Next Visit Focus/Plan Next Note Type Treatment Note Next Visit Plan Hip/knee flexibility, LE strengthening, balance challenges, gait training
--- NOTE | 2024-06-05 15:16 | PT.OPPOC ---
Physical, Occupational & Speech Therapy At [facility] Current Diagnoses Muscle weakness (generalized) (06/05/24) Unsteadiness on feet (06/05/24) Other abnormalities of gait and mobility (06/05/24) Unspecified abnormalities of gait and mobility (06/05/24) Visit Care Team Role Provider Type Aristides Ovalle MD Attending Provider Physician Family Provider Primary Care Provider Referring Provider Specialty: Internal Medicine Address: [address] [place] [address], [address], [facility] Email: [email or web address] Plan Of Care PT-OP-B Current Condition Start: 06/05/24 10:33 Freq: Status: Active Protocol: Document 06/05/24 09:50 DCW (Rec: 06/05/24 15:04 DCW [id number]) Current Condition History of Current Condition Onset Date One year history Current Complaints Decreased ambulation and balance ability History of Current Condition Pt is a 69 year old male presenting with a one year history of decreased balance and difficulty ambulating. Pt' s main focus in ongoing left hip problems, with his hip being sore and weak, strongly feels he needs a hip replacement, but he reports his ortho will not agree to do one, for unknown reasons. Pt denies use of any assistive devices, feels that his balance varies a lot day to day. Feels he is fine some days, and other days he can barely move. Has a tendency to retro lean in standing. PT-OP-T Assessment and Plan Start: 06/05/24 10:33 Freq: Status: Active Protocol: Document 06/05/24 09:50 DCW (Rec: 06/05/24 15:13 DCW [id number]) Physical Therapy Assessment Rehab Potential Rehabilitation Potential Fair Evaluation Complexity Number of Personal Factors/Comorbidities 3 or More Number of Body Systems Impaired 4 or More Clinical Presentation at Evaluation Unstable Impairments Impairments Activity Tolerance,Balance, Functional Activities, Functional Mobility,Gait, Strength,Transfers Goals Three Impairment Pt posture in standing constant hip and knee flexion Line Pilot Goal (LTG) Pt to stand with fully extended hips and knees 50% of the time without cues in order to decrease retro lean. LTG Duration 08/05/24 Two Impairment Pt presents with DGI score of 34/56, indicating an increased risk of falls Nursing Home Goal (LTG) Pt to improve DGI score by at least seven points to 41/56, in order to demonstrate a decreased risk of falls LTG Duration 08/05/24 One Impairment Pt does not have an appropriate home exercise program Short Term Goal (STG) Pt to be independent and compliant with an appropriate HEP STG Duration 07/05/24 Assessment Summary Assessment Pt presents with signs and symptoms consistent with referring diagnosis. DGI indicates a fairly significant increased risk of falls, although pt at this time refuses use of AD for stability. Exhibits poor posture in standing, with hips and knees at 20? flexed, pt denies ability to straighten further., which results in retro lean with standing and ambulation. Pt also exhibits L>R hip weakness, as well as decreased left ankle dorsiflexion, resulting in decreased quality of gait. Pt should benefit from skilled therapeutic intervention focusing on improving LE strength, posture, balance training, gait training, and improving activity tolerance. Physical Therapy Plan Frequency and Duration Frequency of Treatment 2x/Week Plan of Care Start Date 06/05/24 Plan of Care End Date 08/05/24 Therapeutic Interventions Therapeutic Interventions Balance Training,Gait Training ,Home Exercise Program,Joint Mobilizations,Manual Therapy, Neuromuscular Re-education, Patient/Caregiver Education, Self-Care/Home Management,Soft Tissue Mobilization, Therapeutic Activities, Therapeutic Exercises Modalities Cold Pack/Ice Massage,Hot Packs Next Visit Focus/Plan Next Note Type Treatment Note Next Visit Plan Hip/knee flexibility, LE strengthening, balance challenges, gait training Plan of Care Dates Plan of Care Start Date 06/05/24 Plan of Care End Date 08/05/24 Electronically Signed by: Moy Su, PT 06/05/24 [id number] If you are in agreement with this Plan of Care, please return a signed and dated copy. I have reviewed this Plan of Care and certify that the skilled therapy services above are required to meet the patient?s needs. Physician Signature Date Printed Name and Credentials Clinical Instructor Signature Printed Name and Credentials
--- NOTE | 2024-06-10 12:57 | PT.OTN ---
Current Diagnoses Muscle weakness (generalized) (06/10/24) Unsteadiness on feet (06/10/24) Other abnormalities of gait and mobility (06/10/24) Unspecified abnormalities of gait and mobility (06/10/24) Physical Therapy Treatment Note PT-OP-A Visit Information Start: 06/05/24 10:33 Freq: Status: Active Protocol: Document 06/10/24 12:15 DCW (Rec: 06/10/24 12:57 DCW [id number]) Out-Patient Physical Therapy Visit Information Visit Information Visit Type Treatment Note Visit Start Time 12:15 Visit Stop Time 13:00 Visit Number 2 Number of BOX BUILDER Visits 0 Evaluation Information Evaluation Date 06/05/24 PT-OP-B Current Condition Start: 06/05/24 10:33 Freq: Status: Active Protocol: Document 06/05/24 09:50 DCW (Rec: 06/05/24 15:04 DCW [id number]) Current Condition History of Current Condition Onset Date One year history Current Complaints Decreased ambulation and balance ability History of Current Condition Pt is a 69 year old male presenting with a one year history of decreased balance and difficulty ambulating. Pt' s main focus in ongoing left hip problems, with his hip being sore and weak, strongly feels he needs a hip replacement, but he reports his ortho will not agree to do one, for unknown reasons. Pt denies use of any assistive devices, feels that his balance varies a lot day to day. Feels he is fine some days, and other days he can barely move. Has a tendency to retro lean in standing. PT-OP-C Subjective Start: 06/05/24 10:33 Freq: Status: Active Protocol: Document 06/10/24 12:15 DCW (Rec: 06/10/24 12:57 DCW [id number]) OP-PT Subjective Patient Comments Patient Comments I am failing to take a nap right now. PT-OP-D Balance Start: 06/05/24 10:33 Freq: Status: Active Protocol: Document 06/05/24 09:50 DCW (Rec: 06/05/24 10:37 DCW [id number]) OP-PT Balance Assessment Sitting Balance Static Sitting Balance Ability Good Dynamic Sitting Balance Ability Good Standing Balance Static Standing Balance Ability Poor Dynamic Standing Balance Ability Poor Device Used None Balance Tests De Oliveira Balance Test De Oliveira Balance Test Score 34/56 De Oliveira Impairment Rating 20 to 39% Impaired (Score 34- 44) De Oliveira Balance Assessment Evaluation Sitting to Standing Ability Independent w/Hands Unsupported Stance 30 seconds Sitting Unsupported, Feet on Floor Safely- 2 minutes Standing to Sitting Ability Assist, Use Legs on Chair Transfer Ability Safely, Hand Use Unsupported Stance- Eyes Closed Supervision, 10 seconds Unsupported Stance- Eyes Open Independent, <30 seconds Reaching Forward Standing Safely, 5 inches Pick- Up Object From Floor Supervision Look Behind Shoulder - Standing Shifts Weight Well Turning 360 Degrees Turns slowly, but safely Unsupported Stance, Alternating Feet on 2 Steps w/Minimum Assist Stair Unsupported Tandem Stance Small Step- 30 seconds Unilateral Leg Stance Unable,assist to not fall Total Score De Oliveira Total Score (out of 56 points) 34 De Oliveira Impairment Rating 20 to 39% Impaired (Score 34- 44) Henry Fall Scale Copyright Permission PT-OP-G Mobility & Gait Start: 06/05/24 10:33 Freq: Status: Active Protocol: Document 06/05/24 09:50 DCW (Rec: 06/05/24 10:40 DCW [id number]) OP Gait Assessment Gait Gait Assistance Required: Standby Assistance Assistive Devices Assistive Device None Gait Deviations General Gait Pattern Antalgic,Ataxic,Decreased Stride Length,Decreased Feet Clearance,Flexed Trunk,Wide Based Gait Factors Limiting Gait Function Factors Limiting Gait Function Decreased Activity Tolerance, Decreased Strength,Limited Range of Motion,Pain,Poor Balance,Poor Safety Awareness Comments Gait Comments Pt ambulates with bilateral toe out and a wide HARSHA. Exhibits trendelenberg gait pattern. Knees and hips remain flexed throughout gait. Decreased foot clearance, increased path deviation PT-OP-J Posture/Palpation/Skin Start: 06/05/24 15:13 Freq: Status: Active Protocol: Document 06/05/24 09:50 DCW (Rec: 06/05/24 15:14 DCW [id number]) Posture Evaluation Position Standing Evaluation View Lateral Head/C-Spine Posture Flexed T-Spine Posture Increased Kyphosis L-Spine Posture Flexed Hip Posture (L) Flexed,(R) Flexed Knee Posture (L) Excess Flexion,(R) Excess Flexion PT-OP-M Strength Start: 06/05/24 10:33 Freq: Status: Active Protocol: Document 06/05/24 09:50 DCW (Rec: 06/05/24 10:40 DCW [id number]) Hip Strength Hip Manual Muscle Testing Right Flexion (L2) 4 Good Extension (S1) 4- Good- Abduction 4- Good- Adduction 4- Good- External Rotation 4+ Good+ Internal Rotation 4+ Good+ Left Flexion (L2) 4 Good Extension (S1) 4- Good- Abduction 4- Good- Adduction 4- Good- External Rotation 4+ Good+ Internal Rotation 4+ Good+ Knee Strength Knee Manual Muscle Testing Right Flexion (S2) 4- Good- Extension (L3) 4 Good Left Flexion (S2) 4- Good- Extension (L3) 4 Good Ankle/Foot Strength Ankle and Foot Manual Muscle Testing Right Dorsiflexion (L4) 4 Good Left Dorsiflexion (L4) 3- Fair- PT-OP-Q Treatments Start: 06/05/24 10:33 Freq: Status: Active Protocol: Document 06/10/24 12:15 DCW (Rec: 06/10/24 12:57 DCW [id number]) Gym Equipment Shuttle Recovery Unilateral Squats Resistance 37# Bilateral Squats Resistance 75# Therapeutic Exercises Standing Exercises Hip Extension Standing Exercise Name Hip Extension Side bilateral Resistance Blue loop Other Exercises Resisted Ambulation Other Exercise Name Resisted Side-stepping Resistance Blue loop Neuro Re-Education Treatment Balance Activities Hurdles Details Hurdles/Foam Equipment // Bars Comments Forward, Tandem, Side-stepping SLS Details SLS Tandem Details Tandem Stance Equipment // bars Foam Details Foam stance Surface AirEx Comments EO/EC PT-OP-T Assessment and Plan Start: 06/05/24 10:33 Freq: Status: Active Protocol: Document 06/10/24 12:15 DCW (Rec: 06/10/24 12:57 DCW [id number]) Physical Therapy Assessment Impairments Impairments Activity Tolerance,Balance, Functional Activities, Functional Mobility,Gait, Strength,Transfers Goals Three Impairment Pt posture in standing constant hip and knee flexion Retirement Goal (LTG) Pt to stand with fully extended hips and knees 50% of the time without cues in order to decrease retro lean. LTG Duration 08/05/24 Two Impairment Pt presents with DGI score of 34/56, indicating an increased risk of falls Retirement Goal (LTG) Pt to improve DGI score by at least seven points to 41/56, in order to demonstrate a decreased risk of falls LTG Duration 08/05/24 One Impairment Pt does not have an appropriate home exercise program Short Term Goal (STG) Pt to be independent and compliant with an appropriate HEP STG Duration 07/05/24 Assessment Summary Assessment Pt able to stand up with less hip and knee flexion today, noted good muscle engagement with leg press and resisted side-stepping. Continue to work on balance challenges and LE strengthening, potentially add some hip flexor and hamstring stretching next visit. Physical Therapy Plan Frequency and Duration Frequency of Treatment 2x/Week Plan of Care Start Date 06/05/24 Plan of Care End Date 08/05/24 Therapeutic Interventions Therapeutic Interventions Balance Training,Gait Training ,Home Exercise Program,Joint Mobilizations,Manual Therapy, Neuromuscular Re-education, Patient/Caregiver Education, Self-Care/Home Management,Soft Tissue Mobilization, Therapeutic Activities, Therapeutic Exercises Modalities Cold Pack/Ice Massage,Hot Packs Next Visit Focus/Plan Next Note Type Treatment Note Next Visit Plan Hip/knee flexibility, LE strengthening, balance challenges, gait training
--- NOTE | 2024-06-12 08:14 | PT.OTN ---
Current Diagnoses Muscle weakness (generalized) (06/12/24) Unsteadiness on feet (06/12/24) Other abnormalities of gait and mobility (06/12/24) Unspecified abnormalities of gait and mobility (06/12/24) Physical Therapy Treatment Note PT-OP-A Visit Information Start: 06/05/24 10:33 Freq: Status: Active Protocol: Document 06/12/24 07:34 SP (Rec: 06/12/24 08:18 SP Laptop) Out-Patient Physical Therapy Visit Information Visit Information Visit Type Treatment Note Visit Start Time 07:34 Visit Stop Time 08:14 Visit Number 3 Number of FRONT DESK RECEPTIONIST Visits 1 Evaluation Information Evaluation Date 06/05/24 PT-OP-B Current Condition Start: 06/05/24 10:33 Freq: Status: Active Protocol: Document 06/05/24 09:50 DCW (Rec: 06/05/24 15:04 DCW [id number]) Current Condition History of Current Condition Onset Date One year history Current Complaints Decreased ambulation and balance ability History of Current Condition Pt is a 69 year old male presenting with a one year history of decreased balance and difficulty ambulating. Pt' s main focus in ongoing left hip problems, with his hip being sore and weak, strongly feels he needs a hip replacement, but he reports his ortho will not agree to do one, for unknown reasons. Pt denies use of any assistive devices, feels that his balance varies a lot day to day. Feels he is fine some days, and other days he can barely move. Has a tendency to retro lean in standing. PT-OP-C Subjective Start: 06/05/24 10:33 Freq: Status: Active Protocol: Document 06/12/24 07:34 SP (Rec: 06/12/24 08:18 SP Laptop) OP-PT Subjective Patient Comments Patient Comments Pt reports was tired after last tx. PT-OP-D Balance Start: 06/05/24 10:33 Freq: Status: Active Protocol: Document 06/05/24 09:50 DCW (Rec: 06/05/24 10:37 DCW [id number]) OP-PT Balance Assessment Sitting Balance Static Sitting Balance Ability Good Dynamic Sitting Balance Ability Good Standing Balance Static Standing Balance Ability Poor Dynamic Standing Balance Ability Poor Device Used None Balance Tests De Oliveira Balance Test De Oliveira Balance Test Score 34/56 De Oliveira Impairment Rating 20 to 39% Impaired (Score 34- 44) De Oliveira Balance Assessment Evaluation Sitting to Standing Ability Independent w/Hands Unsupported Stance 30 seconds Sitting Unsupported, Feet on Floor Safely- 2 minutes Standing to Sitting Ability Assist, Use Legs on Chair Transfer Ability Safely, Hand Use Unsupported Stance- Eyes Closed Supervision, 10 seconds Unsupported Stance- Eyes Open Independent, <30 seconds Reaching Forward Standing Safely, 5 inches Pick- Up Object From Floor Supervision Look Behind Shoulder - Standing Shifts Weight Well Turning 360 Degrees Turns slowly, but safely Unsupported Stance, Alternating Feet on 2 Steps w/Minimum Assist Stair Unsupported Tandem Stance Small Step- 30 seconds Unilateral Leg Stance Unable,assist to not fall Total Score De Oliveira Total Score (out of 56 points) 34 De Oliveira Impairment Rating 20 to 39% Impaired (Score 34- 44) Henry Fall Scale Copyright Permission PT-OP-G Mobility & Gait Start: 06/05/24 10:33 Freq: Status: Active Protocol: Document 06/05/24 09:50 DCW (Rec: 06/05/24 10:40 DCW [id number]) OP Gait Assessment Gait Gait Assistance Required: Standby Assistance Assistive Devices Assistive Device None Gait Deviations General Gait Pattern Antalgic,Ataxic,Decreased Stride Length,Decreased Feet Clearance,Flexed Trunk,Wide Based Gait Factors Limiting Gait Function Factors Limiting Gait Function Decreased Activity Tolerance, Decreased Strength,Limited Range of Motion,Pain,Poor Balance,Poor Safety Awareness Comments Gait Comments Pt ambulates with bilateral toe out and a wide HARSHA. Exhibits trendelenberg gait pattern. Knees and hips remain flexed throughout gait. Decreased foot clearance, increased path deviation PT-OP-J Posture/Palpation/Skin Start: 06/05/24 15:13 Freq: Status: Active Protocol: Document 06/05/24 09:50 DCW (Rec: 06/05/24 15:14 DCW [id number]) Posture Evaluation Position Standing Evaluation View Lateral Head/C-Spine Posture Flexed T-Spine Posture Increased Kyphosis L-Spine Posture Flexed Hip Posture (L) Flexed,(R) Flexed Knee Posture (L) Excess Flexion,(R) Excess Flexion PT-OP-M Strength Start: 06/05/24 10:33 Freq: Status: Active Protocol: Document 06/05/24 09:50 DCW (Rec: 06/05/24 10:40 DCW [id number]) Hip Strength Hip Manual Muscle Testing Right Flexion (L2) 4 Good Extension (S1) 4- Good- Abduction 4- Good- Adduction 4- Good- External Rotation 4+ Good+ Internal Rotation 4+ Good+ Left Flexion (L2) 4 Good Extension (S1) 4- Good- Abduction 4- Good- Adduction 4- Good- External Rotation 4+ Good+ Internal Rotation 4+ Good+ Knee Strength Knee Manual Muscle Testing Right Flexion (S2) 4- Good- Extension (L3) 4 Good Left Flexion (S2) 4- Good- Extension (L3) 4 Good Ankle/Foot Strength Ankle and Foot Manual Muscle Testing Right Dorsiflexion (L4) 4 Good Left Dorsiflexion (L4) 3- Fair- PT-OP-Q Treatments Start: 06/05/24 10:33 Freq: Status: Active Protocol: Document 06/12/24 07:34 SP (Rec: 06/12/24 08:18 SP Laptop) Gym Equipment Shuttle Recovery Unilateral Squats Details tactile cues for TKE but not lock Resistance 37# 1 teal band Reps/Time x10 each LE Bilateral Squats Details tactile cues for TKE but not lock Resistance 75# 3 teal bands Reps/Time x15 Therapeutic Exercises Sitting Exercises STS Sitting Exercise Name added to HEP with HO Equipment Used mesh chair Reps/Minutes 10 reps Comments cued hands fwd, hip hinge asc/ desc, improved control Standing Exercises Hip Abduction Side bilateral Resistance Green loop at ankles Equipment Used //bars BUE support Reps/Minutes 10 reps each LE Comments cued posture Hip Extension Standing Exercise Name Hip Extension Side bilateral Resistance Blue loop Equipment Used //bars BUE support Reps/Minutes 10 reps each LE Comments cued posture and TKE Other Exercises Resisted Ambulation Other Exercise Name Resisted Side-stepping Resistance Blue loop Equipment Used //bars BUE support Reps/Minutes 10 ft x2 laps Comments cued each foot clearance and parallel fwd PT-OP-T Assessment and Plan Start: 06/05/24 10:33 Freq: Status: Active Protocol: Document 06/12/24 07:34 SP (Rec: 06/12/24 08:18 SP Laptop) Physical Therapy Assessment Goals Three Impairment Pt posture in standing constant hip and knee flexion [employer] Goal (LTG) Pt to stand with fully extended hips and knees 50% of the time without cues in order to decrease retro lean. LTG Duration 08/05/24 Two Impairment Pt presents with DGI score of 34/56, indicating an increased risk of falls [employer] Goal (LTG) Pt to improve DGI score by at least seven points to 41/56, in order to demonstrate a decreased risk of falls LTG Duration 08/05/24 One Impairment Pt does not have an appropriate home exercise program Short Term Goal (STG) Pt to be independent and compliant with an appropriate HEP STG Duration 07/05/24 Assessment Summary Assessment Pt good effort to HEP. Cues for TKE and posture during exercises. Tires quickly with required rest. Improved mechanics with education and cuing during STS with cues for full step back to chair for safety sitting, provided HO for addition to HEP. Improved foot clearance by end of tx. Physical Therapy Plan Frequency and Duration Frequency of Treatment 2x/Week Plan of Care Start Date 06/05/24 Plan of Care End Date 08/05/24 Therapeutic Interventions Therapeutic Interventions Balance Training,Gait Training ,Home Exercise Program,Joint Mobilizations,Manual Therapy, Neuromuscular Re-education, Patient/Caregiver Education, Self-Care/Home Management,Soft Tissue Mobilization, Therapeutic Activities, Therapeutic Exercises Modalities Cold Pack/Ice Massage,Hot Packs Next Visit Focus/Plan Next Note Type Treatment Note Next Visit Plan Hip/knee flexibility, LE strengthening, balance challenges, gait training
--- NOTE | 2024-06-19 09:45 | PT.OTN ---
Current Diagnoses Muscle weakness (generalized) (06/19/24) Unsteadiness on feet (06/19/24) Other abnormalities of gait and mobility (06/19/24) Unspecified abnormalities of gait and mobility (06/19/24) Physical Therapy Treatment Note PT-OP-A Visit Information Start: 06/05/24 10:33 Freq: Status: Active Protocol: Document 06/19/24 09:07 SP (Rec: 06/19/24 09:45 SP Laptop) Out-Patient Physical Therapy Visit Information Visit Information Visit Type Treatment Note Visit Note DOLLY Clay provided instruction throughout ther ex and balance to pt (with pt permission) while under direct instruction of [employer]MARE [employer]EM[employer] Rudy. Visit Start Time 09:07 Visit Stop Time 09:45 Visit Number 4 Number of [employer]MARE FOREMAN Visits 1 Evaluation Information Evaluation Date 06/05/24 PT-OP-B Current Condition Start: 06/05/24 10:33 Freq: Status: Active Protocol: Document 06/05/24 09:50 DCW (Rec: 06/05/24 15:04 DCW [id number]) Current Condition History of Current Condition Onset Date One year history Current Complaints Decreased ambulation and balance ability History of Current Condition Pt is a 69 year old male presenting with a one year history of decreased balance and difficulty ambulating. Pt' s main focus in ongoing left hip problems, with his hip being sore and weak, strongly feels he needs a hip replacement, but he reports his ortho will not agree to do one, for unknown reasons. Pt denies use of any assistive devices, feels that his balance varies a lot day to day. Feels he is fine some days, and other days he can barely move. Has a tendency to retro lean in standing. PT-OP-C Subjective Start: 06/05/24 10:33 Freq: Status: Active Protocol: Document 06/19/24 09:07 SP (Rec: 06/19/24 09:45 SP Laptop) OP-PT Subjective Patient Comments Patient Comments Pt reports wants get stronger in L knee. He was PT-OP-D Balance Start: 06/05/24 10:33 Freq: Status: Active Protocol: Document 06/05/24 09:50 DCW (Rec: 06/05/24 10:37 DCW [id number]) OP-PT Balance Assessment Sitting Balance Static Sitting Balance Ability Good Dynamic Sitting Balance Ability Good Standing Balance Static Standing Balance Ability Poor Dynamic Standing Balance Ability Poor Device Used None Balance Tests De Oliveira Balance Test De Oliveira Balance Test Score 34/56 De Oliveira Impairment Rating 20 to 39% Impaired (Score 34- 44) De Oliveira Balance Assessment Evaluation Sitting to Standing Ability Independent w/Hands Unsupported Stance 30 seconds Sitting Unsupported, Feet on Floor Safely- 2 minutes Standing to Sitting Ability Assist, Use Legs on Chair Transfer Ability Safely, Hand Use Unsupported Stance- Eyes Closed Supervision, 10 seconds Unsupported Stance- Eyes Open Independent, <30 seconds Reaching Forward Standing Safely, 5 inches Pick- Up Object From Floor Supervision Look Behind Shoulder - Standing Shifts Weight Well Turning 360 Degrees Turns slowly, but safely Unsupported Stance, Alternating Feet on 2 Steps w/Minimum Assist Stair Unsupported Tandem Stance Small Step- 30 seconds Unilateral Leg Stance Unable,assist to not fall Total Score De Olievira Total Score (out of 56 points) 34 De Oliveira Impairment Rating 20 to 39% Impaired (Score 34- 44) Henry Fall Scale Copyright Permission PT-OP-G Mobility & Gait Start: 06/05/24 10:33 Freq: Status: Active Protocol: Document 06/05/24 09:50 DCW (Rec: 06/05/24 10:40 DCW [id number]) OP Gait Assessment Gait Gait Assistance Required: Standby Assistance Assistive Devices Assistive Device None Gait Deviations General Gait Pattern Antalgic,Ataxic,Decreased Stride Length,Decreased Feet Clearance,Flexed Trunk,Wide Based Gait Factors Limiting Gait Function Factors Limiting Gait Function Decreased Activity Tolerance, Decreased Strength,Limited Range of Motion,Pain,Poor Balance,Poor Safety Awareness Comments Gait Comments Pt ambulates with bilateral toe out and a wide HARSHA. Exhibits trendelenberg gait pattern. Knees and hips remain flexed throughout gait. Decreased foot clearance, increased path deviation PT-OP-J Posture/Palpation/Skin Start: 06/05/24 15:13 Freq: Status: Active Protocol: Document 06/05/24 09:50 DCW (Rec: 06/05/24 15:14 DCW [id number]) Posture Evaluation Position Standing Evaluation View Lateral Head/C-Spine Posture Flexed T-Spine Posture Increased Kyphosis L-Spine Posture Flexed Hip Posture (L) Flexed,(R) Flexed Knee Posture (L) Excess Flexion,(R) Excess Flexion PT-OP-M Strength Start: 06/05/24 10:33 Freq: Status: Active Protocol: Document 06/05/24 09:50 DCW (Rec: 06/05/24 10:40 DCW [id number]) Hip Strength Hip Manual Muscle Testing Right Flexion (L2) 4 Good Extension (S1) 4- Good- Abduction 4- Good- Adduction 4- Good- External Rotation 4+ Good+ Internal Rotation 4+ Good+ Left Flexion (L2) 4 Good Extension (S1) 4- Good- Abduction 4- Good- Adduction 4- Good- External Rotation 4+ Good+ Internal Rotation 4+ Good+ Knee Strength Knee Manual Muscle Testing Right Flexion (S2) 4- Good- Extension (L3) 4 Good Left Flexion (S2) 4- Good- Extension (L3) 4 Good Ankle/Foot Strength Ankle and Foot Manual Muscle Testing Right Dorsiflexion (L4) 4 Good Left Dorsiflexion (L4) 3- Fair- PT-OP-Q Treatments Start: 06/05/24 10:33 Freq: Status: Active Protocol: Document 06/19/24 09:07 SP (Rec: 06/19/24 09:45 SP Laptop) Gym Equipment Shuttle Recovery Unilateral Squats Details tactile cues for TKE but not lock<> bend Resistance 37# 1 teal band Reps/Time 2x15 each LE Bilateral Squats Details tactile cues for TKE but not lock and full flex, slower eccentric pacing Resistance 75# 3 teal bands Reps/Time x15 Therapeutic Exercises Sitting Exercises STS Sitting Exercise Name reviewed Equipment Used mesh chair Reps/Minutes 10 reps Comments max cued hands reaching back, hip hinge asc/desc, controlled decent Standing Exercises Hip Abduction Side bilateral Resistance Green (hip pain)> Koi green loop at ankles Equipment Used BUE rail support Reps/Minutes 10 reps each LE Comments max cued posture, head look straight ahead Hip Extension Standing Exercise Name Hip Extension Side bilateral Resistance Green (hip pain)> Koi green loop at ankles Equipment Used BUE rail support Reps/Minutes 10 reps each LE Comments max cued posture and TKE, cues for count out loud Other Exercises Resisted Ambulation Other Exercise Name Resisted Side-stepping Resistance Blue> Koi green loop at ankles Equipment Used rail support 2>1 UE Reps/Minutes 10 ft x2 laps (counting step helps at times step length) Comments cued each foot clearance and parallel fwd Neuro Re-Education Treatment Balance Activities SLS Details SLS- trials Equipment 2>1 UE support on rail> finger tips if can Reps/Duration 4 reps each side Comments decreased wB support LLE vs RLE cues for posture, full hand to lighten finger tips for progression, CG- 10%A. Tandem Details Tandem Stance Equipment 2> 1 UE rail support finger tip support (facing rail) Comments CG- 5%A PT-OP-T Assessment and Plan Start: 06/05/24 10:33 Freq: Status: Active Protocol: Document 06/19/24 09:07 SP (Rec: 06/19/24 09:45 SP Laptop) Physical Therapy Assessment Goals Three Impairment Pt posture in standing constant hip and knee flexion [employer] Goal (LTG) Pt to stand with fully extended hips and knees 50% of the time without cues in order to decrease retro lean. LTG Duration 08/05/24 Two Impairment Pt presents with DGI score of 34/56, indicating an increased risk of falls [facility] Goal (LTG) Pt to improve DGI score by at least seven points to 41/56, in order to demonstrate a decreased risk of falls LTG Duration 08/05/24 One Impairment Pt does not have an appropriate home exercise program Short Term Goal (STG) Pt to be independent and compliant with an appropriate HEP STG Duration 07/05/24 Assessment Summary Assessment Pt required 1 steps cues for completion of tasks during all activities today due to poor memory carryover today. Improved decreased UE support during tandem balance today. Physical Therapy Plan Frequency and Duration Frequency of Treatment 2x/Week Plan of Care Start Date 06/05/24 Plan of Care End Date 08/05/24 Therapeutic Interventions Therapeutic Interventions Balance Training,Gait Training ,Home Exercise Program,Joint Mobilizations,Manual Therapy, Neuromuscular Re-education, Patient/Caregiver Education, Self-Care/Home Management,Soft Tissue Mobilization, Therapeutic Activities, Therapeutic Exercises Modalities Cold Pack/Ice Massage,Hot Packs Next Visit Focus/Plan Next Note Type Treatment Note Next Visit Plan Hip/knee flexibility, LE strengthening, balance challenges, gait training
--- NOTE | 2024-06-21 10:34 | PT-OP ANOTE ---
Pt was no show for appt today.? When called he did not recall appt and stated he did not get reminders for appt today.? Reminded him of cancelation and no show policy, potential fee.? Pt confirmed next two appointments on his print out.? Confirmed with schedulers that pt had in fact confirmed appt via text respond. Next visit we will discuss schedule and automatic reminders that he's responding to.
--- NOTE | 2024-06-21 10:34 | PT.OTN ---
Current Diagnoses Muscle weakness (generalized) (06/19/24) Unsteadiness on feet (06/19/24) Other abnormalities of gait and mobility (06/19/24) Unspecified abnormalities of gait and mobility (06/19/24) Physical Therapy Treatment Note PT-OP-A Visit Information Start: 06/05/24 10:33 Freq: Status: Active Protocol: Document 06/21/24 10:34 PG (Rec: 06/21/24 10:46 PG Laptop) Out-Patient Physical Therapy Visit Information Visit Information Visit Note Pt was no show for appt today. When called he did not recall appt and stated he did not get reminders for appt today. Reminded him of cancelation and no show policy , potential fee. Pt confirmed next two appointments on his print out. Confirmed with schedulers that pt had in fact confirmed appt via text respond. Next visit we will discuss schedule and automatic reminders that he's responding to.
--- NOTE | 2024-06-21 12:00 | PT.OTN ---
Current Diagnoses Muscle weakness (generalized) (06/19/24) Unsteadiness on feet (06/19/24) Other abnormalities of gait and mobility (06/19/24) Unspecified abnormalities of gait and mobility (06/19/24) Physical Therapy Treatment Note PT-OP-A Visit Information Start: 06/05/24 11:30 Freq: Status: Active Protocol: Document 06/21/24 10:34 PG (Rec: 06/21/24 10:46 PG Laptop) Out-Patient Physical Therapy Visit Information Visit Information Visit Note Pt was no show for appt today. When called he did not recall appt and stated he did not get reminders for appt today. Reminded him of cancelation and no show policy , potential fee. Pt confirmed next two appointments on his print out. Confirmed with schedulers that pt had in fact confirmed appt via text respond. Next visit we will discuss schedule and automatic reminders that he's responding to.
--- NOTE | 2024-06-26 09:42 | PT.OTN ---
Current Diagnoses Muscle weakness (generalized) (06/26/24) Unsteadiness on feet (06/26/24) Other abnormalities of gait and mobility (06/26/24) Unspecified abnormalities of gait and mobility (06/26/24) Physical Therapy Treatment Note PT-OP-A Visit Information Start: 06/05/24 10:33 Freq: Status: Active Protocol: Document 06/26/24 09:01 PG (Rec: 06/26/24 10:33 PG [id number]) Out-Patient Physical Therapy Visit Information Visit Information Visit Type Treatment Note Visit Note Danna ALBERTO helped instruct ther ex activites with permission from pt and direct supervision of Carmen IGNACIO. Visit Start Time 09:01 Visit Stop Time 09:42 Visit Number 5 Number of FURNITURE SHAMPOOER Visits 2 Evaluation Information Evaluation Date 06/05/24 PT-OP-B Current Condition Start: 06/05/24 10:33 Freq: Status: Active Protocol: Document 06/05/24 09:50 DCW (Rec: 06/05/24 15:04 DCW [id number]) Current Condition History of Current Condition Onset Date One year history Current Complaints Decreased ambulation and balance ability History of Current Condition Pt is a 69 year old male presenting with a one year history of decreased balance and difficulty ambulating. Pt' s main focus in ongoing left hip problems, with his hip being sore and weak, strongly feels he needs a hip replacement, but he reports his ortho will not agree to do one, for unknown reasons. Pt denies use of any assistive devices, feels that his balance varies a lot day to day. Feels he is fine some days, and other days he can barely move. Has a tendency to retro lean in standing. PT-OP-C Subjective Start: 06/05/24 10:33 Freq: Status: Active Protocol: Document 06/26/24 09:01 PG (Rec: 06/26/24 10:33 PG [id number]) OP-PT Subjective Patient Comments Patient Comments Pt reports he's feeling fine. Discomfort in his left hip is consistent but not unbearable , states he has been stretching to try and relieve some pain in the left hip. He really wants to get stronger in his left LE. PT-OP-D Balance Start: 06/05/24 10:33 Freq: Status: Active Protocol: Document 06/05/24 09:50 DCW (Rec: 06/05/24 10:37 DCW [id number]) OP-PT Balance Assessment Sitting Balance Static Sitting Balance Ability Good Dynamic Sitting Balance Ability Good Standing Balance Static Standing Balance Ability Poor Dynamic Standing Balance Ability Poor Device Used None Balance Tests De Oliveira Balance Test De Oliveira Balance Test Score 34/56 De Oliveira Impairment Rating 20 to 39% Impaired (Score 34- 44) De Oliveira Balance Assessment Evaluation Sitting to Standing Ability Independent w/Hands Unsupported Stance 30 seconds Sitting Unsupported, Feet on Floor Safely- 2 minutes Standing to Sitting Ability Assist, Use Legs on Chair Transfer Ability Safely, Hand Use Unsupported Stance- Eyes Closed Supervision, 10 seconds Unsupported Stance- Eyes Open Independent, <30 seconds Reaching Forward Standing Safely, 5 inches Pick- Up Object From Floor Supervision Look Behind Shoulder - Standing Shifts Weight Well Turning 360 Degrees Turns slowly, but safely Unsupported Stance, Alternating Feet on 2 Steps w/Minimum Assist Stair Unsupported Tandem Stance Small Step- 30 seconds Unilateral Leg Stance Unable,assist to not fall Total Score De Oliveira Total Score (out of 56 points) 34 De Oliveira Impairment Rating 20 to 39% Impaired (Score 34- 44) Henry Fall Scale Copyright Permission PT-OP-G Mobility & Gait Start: 06/05/24 10:33 Freq: Status: Active Protocol: Document 06/05/24 09:50 DCW (Rec: 06/05/24 10:40 NYW [id number]) OP Gait Assessment Gait Gait Assistance Required: Standby Assistance Assistive Devices Assistive Device None Gait Deviations General Gait Pattern Antalgic,Ataxic,Decreased Stride Length,Decreased Feet Clearance,Flexed Trunk,Wide Based Gait Factors Limiting Gait Function Factors Limiting Gait Function Decreased Activity Tolerance, Decreased Strength,Limited Range of Motion,Pain,Poor Balance,Poor Safety Awareness Comments Gait Comments Pt ambulates with bilateral toe out and a wide HARSHA. Exhibits trendelenberg gait pattern. Knees and hips remain flexed throughout gait. Decreased foot clearance, increased path deviation PT-OP-J Posture/Palpation/Skin Start: 06/05/24 15:13 Freq: Status: Active Protocol: Document 06/05/24 09:50 DCW (Rec: 06/05/24 15:14 DCW [id number]) Posture Evaluation Position Standing Evaluation View Lateral Head/C-Spine Posture Flexed T-Spine Posture Increased Kyphosis L-Spine Posture Flexed Hip Posture (L) Flexed,(R) Flexed Knee Posture (L) Excess Flexion,(R) Excess Flexion PT-OP-M Strength Start: 06/05/24 10:33 Freq: Status: Active Protocol: Document 06/05/24 09:50 DCW (Rec: 06/05/24 10:40 DCW [id number]) Hip Strength Hip Manual Muscle Testing Right Flexion (L2) 4 Good Extension (S1) 4- Good- Abduction 4- Good- Adduction 4- Good- External Rotation 4+ Good+ Internal Rotation 4+ Good+ Left Flexion (L2) 4 Good Extension (S1) 4- Good- Abduction 4- Good- Adduction 4- Good- External Rotation 4+ Good+ Internal Rotation 4+ Good+ Knee Strength Knee Manual Muscle Testing Right Flexion (S2) 4- Good- Extension (L3) 4 Good Left Flexion (S2) 4- Good- Extension (L3) 4 Good Ankle/Foot Strength Ankle and Foot Manual Muscle Testing Right Dorsiflexion (L4) 4 Good Left Dorsiflexion (L4) 3- Fair- PT-OP-Q Treatments Start: 06/05/24 10:33 Freq: Status: Active Protocol: Document 06/26/24 09:01 PG (Rec: 06/26/24 10:33 PG [id number]) Therapeutic Exercises Supine Exercises ITB stretch Supine Exercise Name Trialed in today's tx - pt took photo of exercise Side left Equipment Used blue strap Reps/Minutes 30 seconds Comments req'd verb and vision cues for set up, good feedback response. Piriformis stretch Supine Exercise Name Trialed in today's tx - pt took photo of exercise Side left Reps/Minutes 30 seconds Comments req'd verb and vision cues for set up, good feedback response. Sitting Exercises STS Sitting Exercise Name Reviewed Equipment Used mesh chair Reps/Minutes 10 reps Comments V/c's to slow down. Good carry over for pushing off or reaching for seat. Standing Exercises Hip Abduction Standing Exercise Name Poor recall for HEP Side bilateral Resistance Green, level 2 TB at knees Equipment Used BUE rail support Reps/Minutes 3x5 each LE Comments verbal, tactile, visual cues for posture, knee straight, legs back together Hip Extension Standing Exercise Name Poor recall for HEP Side bilateral Resistance Green, level 2 TB at knees Equipment Used BUE rail support Reps/Minutes 3x5 each LE Comments verb, tact, visual cues for posture, keep knee straight, legs back together Other Exercises Resisted Ambulation Other Exercise Name Resisted Side-stepping Resistance Green, level 2 TB at knees Equipment Used BUE rail support Reps/Minutes down and back // bars x 3 Comments Mod VC's for posture, toes pointed fwd, looking up, increase in step length Neuro Re-Education Treatment Balance Activities Tandem Walking Surface Carpet Equipment // bars, gait belt Reps/Duration down and back // bars x 2 Comments Req'd verbal cues for posture. Used BUE support > Single UE support and contact guard. Hurdles Details Forward Surface Carpet Equipment 6 inch hurdles, // bars, gait belt Reps/Duration down and back // bars x3 Comments Req'd verbal cues for posture and slowing down. Attempted slow reciprocal step through hurdles but regressed to step to gait to focus on lifting toes for improved foot clearance and better pacing. CGA. PT-OP-T Assessment and Plan Start: 06/05/24 10:33 Freq: Status: Active Protocol: Document 06/26/24 09:01 PG (Rec: 06/26/24 10:33 PG [id number]) Physical Therapy Assessment Goals Three Impairment Pt posture in standing constant hip and knee flexion Mass Spectrometry Manager Goal (LTG) Pt to stand with fully extended hips and knees 50% of the time without cues in order to decrease retro lean. LTG Duration 08/05/24 Two Impairment Pt presents with DGI score of 34/56, indicating an increased risk of falls Mass Spectrometry Manager Goal (LTG) Pt to improve DGI score by at least seven points to 41/56, in order to demonstrate a decreased risk of falls LTG Duration 08/05/24 One Impairment Pt does not have an appropriate home exercise program Short Term Goal (STG) Pt to be independent and compliant with an appropriate HEP STG Duration 07/05/24 Assessment Summary Assessment Pt presents with poor memory/ carry over today. Instructed with simple 1 step cues for completion of tasks and corrections. Pt required frequent v/c's for keeping leg 's straight during standing hip abd and ext. Challenged with increased time in SLS and foot clearance through hurdles, did well with step to gait and BUE support. Trialed piriformis and ITB stretch, pt tolerated well and took photos of stretches with his phone to support carry over for decrease in hip pain. Physical Therapy Plan Frequency and Duration Frequency of Treatment 2x/Week Plan of Care Start Date 06/05/24 Plan of Care End Date 08/05/24 Therapeutic Interventions Therapeutic Interventions Balance Training,Gait Training ,Home Exercise Program,Joint Mobilizations,Manual Therapy, Neuromuscular Re-education, Patient/Caregiver Education, Self-Care/Home Management,Soft Tissue Mobilization, Therapeutic Activities, Therapeutic Exercises Modalities Cold Pack/Ice Massage,Hot Packs Next Visit Focus/Plan Next Note Type Treatment Note Next Visit Plan Next tx review stretches recall (HO), work on static balance, manual to L hip if needed. Hip/knee flexibility, LE strengthening, balance challenges, gait training
--- NOTE | 2024-07-04 10:34 | PT.OTN ---
Current Diagnoses Muscle weakness (generalized) (07/04/24) Unsteadiness on feet (07/04/24) Other abnormalities of gait and mobility (07/04/24) Unspecified abnormalities of gait and mobility (07/04/24) Physical Therapy Treatment Note PT-OP-A Visit Information Start: 06/05/24 10:33 Freq: Status: Active Protocol: Document 07/04/24 09:52 DCW (Rec: 07/04/24 10:34 [facility] [id number]) Out-Patient Physical Therapy Visit Information Visit Information Visit Type Treatment Note Visit Start Time 09:52 Visit Stop Time 10:30 Visit Number 6 Number of JAVA DEVELOPER Visits 0 Evaluation Information Evaluation Date 06/05/24 PT-OP-B Current Condition Start: 06/05/24 10:33 Freq: Status: Active Protocol: Document 06/05/24 09:50 DCW (Rec: 06/05/24 15:04 DCW [id number]) Current Condition History of Current Condition Onset Date One year history Current Complaints Decreased ambulation and balance ability History of Current Condition Pt is a 69 year old male presenting with a one year history of decreased balance and difficulty ambulating. Pt' s main focus in ongoing left hip problems, with his hip being sore and weak, strongly feels he needs a hip replacement, but he reports his ortho will not agree to do one, for unknown reasons. Pt denies use of any assistive devices, feels that his balance varies a lot day to day. Feels he is fine some days, and other days he can barely move. Has a tendency to retro lean in standing. PT-OP-C Subjective Start: 06/05/24 10:33 Freq: Status: Active Protocol: Document 07/04/24 09:52 DCW (Rec: 07/04/24 10:34 DCW [id number]) OP-PT Subjective Patient Comments Patient Comments Pt reports his wants him to go see someone who specialized in Parkinson's disease, but pt is very vague on the details, cannot remember name or location, potentially in [place] or . Pt also arrives with a scrape on his head, reports he had a fall in the last few days. Biggest issue was that he was unable to get himself up off the ground. PT-OP-D Balance Start: 06/05/24 10:33 Freq: Status: Active Protocol: Document 06/05/24 09:50 DCW (Rec: 06/05/24 10:37 DCW [id number]) OP-PT Balance Assessment Sitting Balance Static Sitting Balance Ability Good Dynamic Sitting Balance Ability Good Standing Balance Static Standing Balance Ability Poor Dynamic Standing Balance Ability Poor Device Used None Balance Tests De Oliveira Balance Test De Oliveira Balance Test Score 34/56 De Oliveira Impairment Rating 20 to 39% Impaired (Score 34- 44) De Oliveira Balance Assessment Evaluation Sitting to Standing Ability Independent w/Hands Unsupported Stance 30 seconds Sitting Unsupported, Feet on Floor Safely- 2 minutes Standing to Sitting Ability Assist, Use Legs on Chair Transfer Ability Safely, Hand Use Unsupported Stance- Eyes Closed Supervision, 10 seconds Unsupported Stance- Eyes Open Independent, <30 seconds Reaching Forward Standing Safely, 5 inches Pick- Up Object From Floor Supervision Look Behind Shoulder - Standing Shifts Weight Well Turning 360 Degrees Turns slowly, but safely Unsupported Stance, Alternating Feet on 2 Steps w/Minimum Assist Stair Unsupported Tandem Stance Small Step- 30 seconds Unilateral Leg Stance Unable,assist to not fall Total Score De Oliveira Total Score (out of 56 points) 34 De Oliveira Impairment Rating 20 to 39% Impaired (Score 34- 44) Henry Fall Scale Copyright Permission PT-OP-G Mobility & Gait Start: 06/05/24 10:33 Freq: Status: Active Protocol: Document 06/05/24 09:50 DCW (Rec: 06/05/24 10:40 DCW [id number]) OP Gait Assessment Gait Gait Assistance Required: Standby Assistance Assistive Devices Assistive Device None Gait Deviations General Gait Pattern Antalgic,Ataxic,Decreased Stride Length,Decreased Feet Clearance,Flexed Trunk,Wide Based Gait Factors Limiting Gait Function Factors Limiting Gait Function Decreased Activity Tolerance, Decreased Strength,Limited Range of Motion,Pain,Poor Balance,Poor Safety Awareness Comments Gait Comments Pt ambulates with bilateral toe out and a wide HARSHA. Exhibits trendelenberg gait pattern. Knees and hips remain flexed throughout gait. Decreased foot clearance, increased path deviation PT-OP-J Posture/Palpation/Skin Start: 06/05/24 15:13 Freq: Status: Active Protocol: Document 06/05/24 09:50 DCW (Rec: 06/05/24 15:14 DCW [id number]) Posture Evaluation Position Standing Evaluation View Lateral Head/C-Spine Posture Flexed T-Spine Posture Increased Kyphosis L-Spine Posture Flexed Hip Posture (L) Flexed,(R) Flexed Knee Posture (L) Excess Flexion,(R) Excess Flexion PT-OP-M Strength Start: 06/05/24 10:33 Freq: Status: Active Protocol: Document 06/05/24 09:50 DCW (Rec: 06/05/24 10:40 DCW [id number]) Hip Strength Hip Manual Muscle Testing Right Flexion (L2) 4 Good Extension (S1) 4- Good- Abduction 4- Good- Adduction 4- Good- External Rotation 4+ Good+ Internal Rotation 4+ Good+ Left Flexion (L2) 4 Good Extension (S1) 4- Good- Abduction 4- Good- Adduction 4- Good- External Rotation 4+ Good+ Internal Rotation 4+ Good+ Knee Strength Knee Manual Muscle Testing Right Flexion (S2) 4- Good- Extension (L3) 4 Good Left Flexion (S2) 4- Good- Extension (L3) 4 Good Ankle/Foot Strength Ankle and Foot Manual Muscle Testing Right Dorsiflexion (L4) 4 Good Left Dorsiflexion (L4) 3- Fair- PT-OP-Q Treatments Start: 06/05/24 10:33 Freq: Status: Active Protocol: Document 07/04/24 09:52 DCW (Rec: 07/04/24 10:34 DCW [id number]) Gym Equipment Shuttle Recovery Unilateral Squats Resistance 37# (One Teal) Bilateral Squats Resistance 62# (Two Teal) Therapeutic Exercises Supine Exercises Hamstring Stretch Supine Exercise Name Hamstring Stretch Piriformis stretch Supine Exercise Name Knee to opposite chest Side bilateral Neuro Re-Education Treatment Balance Activities Tandem Details Tandem Stance Equipment // bars Foam Details Foam stance Surface AirEx Comments EO/EC PT-OP-T Assessment and Plan Start: 06/05/24 10:33 Freq: Status: Active Protocol: Document 07/04/24 09:52 DCW (Rec: 07/04/24 10:34 DCW [id number]) Physical Therapy Assessment Goals Three Impairment Pt posture in standing constant hip and knee flexion Chcf Goal (LTG) Pt to stand with fully extended hips and knees 50% of the time without cues in order to decrease retro lean. LTG Duration 08/05/24 Two Impairment Pt presents with DGI score of 34/56, indicating an increased risk of falls Wheel Cleaner Goal (LTG) Pt to improve DGI score by at least seven points to 41/56, in order to demonstrate a decreased risk of falls LTG Duration 08/05/24 One Impairment Pt does not have an appropriate home exercise program Short Term Goal (STG) Pt to be independent and compliant with an appropriate HEP STG Duration 07/05/24 Assessment Summary Assessment Pt notes he does not feel like PT has been helping, it's just a downward spiral, but you get rewarded with effort, so willing to continue for a bit longer. Continue to work on balance, strength, and mobility. Overall poor carry- over. Physical Therapy Plan Frequency and Duration Frequency of Treatment 2x/Week Plan of Care Start Date 06/05/24 Plan of Care End Date 08/05/24 Therapeutic Interventions Therapeutic Interventions Balance Training,Gait Training ,Home Exercise Program,Joint Mobilizations,Manual Therapy, Neuromuscular Re-education, Patient/Caregiver Education, Self-Care/Home Management,Soft Tissue Mobilization, Therapeutic Activities, Therapeutic Exercises Modalities Cold Pack/Ice Massage,Hot Packs Next Visit Focus/Plan Next Note Type Treatment Note Next Visit Plan Hip/knee flexibility, LE strengthening, balance challenges, gait training
--- NOTE | 2024-07-08 08:13 | PT.OTN ---
Current Diagnoses Muscle weakness (generalized) (07/08/24) Unsteadiness on feet (07/08/24) Other abnormalities of gait and mobility (07/08/24) Unspecified abnormalities of gait and mobility (07/08/24) Physical Therapy Treatment Note PT-OP-A Visit Information Start: 06/05/24 10:33 Freq: Status: Active Protocol: Document 07/08/24 07:33 PG (Rec: 07/08/24 08:15 PG [id number]) Out-Patient Physical Therapy Visit Information Visit Information Visit Type Treatment Note Visit Note DOLLY Clay led tx with permission of pt and direct supervision of Carmen IGNACIO. Visit Start Time 07:33 Visit Stop Time 08:13 Visit Number 7 Number of PHYSICAL CHEMIST Visits 1 Evaluation Information Evaluation Date 06/05/24 PT-OP-B Current Condition Start: 06/05/24 10:33 Freq: Status: Active Protocol: Document 06/05/24 09:50 DCW (Rec: 06/05/24 15:04 DCW [id number]) Current Condition History of Current Condition Onset Date One year history Current Complaints Decreased ambulation and balance ability History of Current Condition Pt is a 69 year old male presenting with a one year history of decreased balance and difficulty ambulating. Pt' s main focus in ongoing left hip problems, with his hip being sore and weak, strongly feels he needs a hip replacement, but he reports his ortho will not agree to do one, for unknown reasons. Pt denies use of any assistive devices, feels that his balance varies a lot day to day. Feels he is fine some days, and other days he can barely move. Has a tendency to retro lean in standing. PT-OP-C Subjective Start: 06/05/24 10:33 Freq: Status: Active Protocol: Document 07/08/24 07:33 PG (Rec: 07/08/24 08:15 PG [id number]) OP-PT Subjective Patient Comments Patient Comments Pt walked into treatment with limited to no foot clearance and increased shuffling. Hip is still bothering pt, he is hoping to get a cortisone shot to help decrease the pain. PT-OP-D Balance Start: 06/05/24 10:33 Freq: Status: Active Protocol: Document 06/05/24 09:50 DCW (Rec: 06/05/24 10:37 DCW [id number]) OP-PT Balance Assessment Sitting Balance Static Sitting Balance Ability Good Dynamic Sitting Balance Ability Good Standing Balance Static Standing Balance Ability Poor Dynamic Standing Balance Ability Poor Device Used None Balance Tests De Oliveira Balance Test De Oliveira Balance Test Score 34/56 De Oliveira Impairment Rating 20 to 39% Impaired (Score 34- 44) De Oliveira Balance Assessment Evaluation Sitting to Standing Ability Independent w/Hands Unsupported Stance 30 seconds Sitting Unsupported, Feet on Floor Safely- 2 minutes Standing to Sitting Ability Assist, Use Legs on Chair Transfer Ability Safely, Hand Use Unsupported Stance- Eyes Closed Supervision, 10 seconds Unsupported Stance- Eyes Open Independent, <30 seconds Reaching Forward Standing Safely, 5 inches Pick- Up Object From Floor Supervision Look Behind Shoulder - Standing Shifts Weight Well Turning 360 Degrees Turns slowly, but safely Unsupported Stance, Alternating Feet on 2 Steps w/Minimum Assist Stair Unsupported Tandem Stance Small Step- 30 seconds Unilateral Leg Stance Unable,assist to not fall Total Score De Oliveira Total Score (out of 56 points) 34 De Oliveira Impairment Rating 20 to 39% Impaired (Score 34- 44) Henry Fall Scale Copyright Permission PT-OP-G Mobility & Gait Start: 06/05/24 10:33 Freq: Status: Active Protocol: Document 06/05/24 09:50 DCW (Rec: 06/05/24 10:40 [facility] [id number]) OP Gait Assessment Gait Gait Assistance Required: Standby Assistance Assistive Devices Assistive Device None Gait Deviations General Gait Pattern Antalgic,Ataxic,Decreased Stride Length,Decreased Feet Clearance,Flexed Trunk,Wide Based Gait Factors Limiting Gait Function Factors Limiting Gait Function Decreased Activity Tolerance, Decreased Strength,Limited Range of Motion,Pain,Poor Balance,Poor Safety Awareness Comments Gait Comments Pt ambulates with bilateral toe out and a wide HARSHA. Exhibits trendelenberg gait pattern. Knees and hips remain flexed throughout gait. Decreased foot clearance, increased path deviation PT-OP-J Posture/Palpation/Skin Start: 06/05/24 15:13 Freq: Status: Active Protocol: Document 06/05/24 09:50 DCW (Rec: 06/05/24 15:14 DCW [id number]) Posture Evaluation Position Standing Evaluation View Lateral Head/C-Spine Posture Flexed T-Spine Posture Increased Kyphosis L-Spine Posture Flexed Hip Posture (L) Flexed,(R) Flexed Knee Posture (L) Excess Flexion,(R) Excess Flexion PT-OP-M Strength Start: 06/05/24 10:33 Freq: Status: Active Protocol: Document 06/05/24 09:50 DCW (Rec: 06/05/24 10:40 DCW [id number]) Hip Strength Hip Manual Muscle Testing Right Flexion (L2) 4 Good Extension (S1) 4- Good- Abduction 4- Good- Adduction 4- Good- External Rotation 4+ Good+ Internal Rotation 4+ Good+ Left Flexion (L2) 4 Good Extension (S1) 4- Good- Abduction 4- Good- Adduction 4- Good- External Rotation 4+ Good+ Internal Rotation 4+ Good+ Knee Strength Knee Manual Muscle Testing Right Flexion (S2) 4- Good- Extension (L3) 4 Good Left Flexion (S2) 4- Good- Extension (L3) 4 Good Ankle/Foot Strength Ankle and Foot Manual Muscle Testing Right Dorsiflexion (L4) 4 Good Left Dorsiflexion (L4) 3- Fair- PT-OP-Q Treatments Start: 06/05/24 10:33 Freq: Status: Active Protocol: Document 07/08/24 07:33 PG (Rec: 07/08/24 08:15 PG [id number]) Therapeutic Exercises Supine Exercises ITB stretch Supine Exercise Name Trialed in today's tx - pt took photo of exercise Side left Equipment Used blue strap Reps/Minutes 30 seconds Comments req'd verb and vision cues for set up, good feedback response. Piriformis stretch Supine Exercise Name Knee to opposite chest Side bilateral Reps/Minutes 30 seconds Therapeutic Activity Therapeutic Activity Floor <> Standing Transfer Name Floor <> standing transfer Reps/Minutes x2 Comments v/c's to get to hands and knees, used chair for support. Pt was able to transfer from the floor (supine) to standing and required only SBA . No additional cues were required for motor planning. Neuro Re-Education Treatment Balance Activities Tandem Walking Equipment //bars, gait belt Reps/Duration down and back //bars x 2 Comments Cues to use only 1 UE on // bars for support. CGA Hurdles Details Fwd and lateral Equipment gait belt, handle bar, 6inch hurdles Reps/Duration down and back // bars x 4 each Comments Required frequent v/c's to use 1-0 hands (finger tips grazing) for support. Required frequent motor planning for LE's when walking laterally through hurdles. Verbal and tactile cues for UE support arm to follow along with LE's, often left behind on // bars. PT-OP-T Assessment and Plan Start: 06/05/24 10:33 Freq: Status: Active Protocol: Document 07/08/24 07:33 PG (Rec: 07/08/24 08:15 PG [id number]) Physical Therapy Assessment Goals Three Impairment Pt posture in standing constant hip and knee flexion Chin Strap Maker Goal (LTG) Pt to stand with fully extended hips and knees 50% of the time without cues in order to decrease retro lean. LTG Duration 08/05/24 Two Impairment Pt presents with DGI score of 34/56, indicating an increased risk of falls Chin Strap Maker Goal (LTG) Pt to improve DGI score by at least seven points to 41/56, in order to demonstrate a decreased risk of falls LTG Duration 08/05/24 One Impairment Pt does not have an appropriate home exercise program Short Term Goal (STG) Pt to be independent and compliant with an appropriate HEP STG Duration 07/05/24 Assessment Summary Assessment Pt tolerated tx well today. Pt has poor recall with stretches set up from HEP, required max verbal and tactile cues for set up, direction and performance to support decreased pain in R hip. Pt was able to perform a transfer from the floor ( supine) to standing using a chair, pt required few cues and was able to complete 2 reps with only SBA and minimal cueing, working on recovery from a fall. Continued to work on increased time in SLS and foot clearance while walking through the hurdles both fwrd/laterally for improved gait through the community. Pt is hesitant and relies on UE support with increase foot clearance, required frequent v/c's to use 1 or no UE's for support to work on balance. 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 Pt stated there was no increase in R hip discomfort after today's treatment session. Physical Therapy Plan Frequency and Duration Frequency of Treatment 2x/Week Plan of Care Start Date 06/05/24 Plan of Care End Date 08/05/24 Therapeutic Interventions Therapeutic Interventions Balance Training,Gait Training ,Home Exercise Program,Joint Mobilizations,Manual Therapy, Neuromuscular Re-education, Patient/Caregiver Education, Self-Care/Home Management,Soft Tissue Mobilization, Therapeutic Activities, Therapeutic Exercises Modalities Cold Pack/Ice Massage,Hot Packs Next Visit Focus/Plan Next Note Type Treatment Note Next Visit Plan Next: Provide pt with hard copy of stretches and review for improved carry over at home. Work on transferring from floor (supine) to standing with no chair assistance. Hurdles outside of //bar (with a gait belt) to decrease use of UE support. POC: Hip/knee flexibility, LE strengthening, balance challenges, gait training
--- NOTE | 2024-07-12 14:26 | PT.OTN ---
Current Diagnoses Muscle weakness (generalized) (07/12/24) Unsteadiness on feet (07/12/24) Other abnormalities of gait and mobility (07/12/24) Unspecified abnormalities of gait and mobility (07/12/24) Physical Therapy Treatment Note PT-OP-A Visit Information Start: 06/05/24 10:33 Freq: Status: Active Protocol: Document 07/12/24 13:45 DCW (Rec: 07/12/24 14:26 DCW [id number]) Out-Patient Physical Therapy Visit Information Visit Information Visit Type Treatment Note Visit Start Time 13:45 Visit Stop Time 14:30 Visit Number 8 Number of ELECTRONIC TRAIN CONTROL TECHNICIAN Visits 0 Evaluation Information Evaluation Date 06/05/24 PT-OP-B Current Condition Start: 06/05/24 10:33 Freq: Status: Active Protocol: Document 06/05/24 09:50 DCW (Rec: 06/05/24 15:04 DCW [id number]) Current Condition History of Current Condition Onset Date One year history Current Complaints Decreased ambulation and balance ability History of Current Condition Pt is a 69 year old male presenting with a one year history of decreased balance and difficulty ambulating. Pt' s main focus in ongoing left hip problems, with his hip being sore and weak, strongly feels he needs a hip replacement, but he reports his ortho will not agree to do one, for unknown reasons. Pt denies use of any assistive devices, feels that his balance varies a lot day to day. Feels he is fine some days, and other days he can barely move. Has a tendency to retro lean in standing. PT-OP-C Subjective Start: 06/05/24 10:33 Freq: Status: Active Protocol: Document 07/12/24 13:45 DCW (Rec: 07/12/24 14:26 DCW [id number]) OP-PT Subjective Patient Comments Patient Comments Pt continues to be unsure if he wants to see movement specialist, believes his appointment is a month or two out. PT-OP-D Balance Start: 06/05/24 10:33 Freq: Status: Active Protocol: Document 06/05/24 09:50 DCW (Rec: 06/05/24 10:37 DCW [id number]) OP-PT Balance Assessment Sitting Balance Static Sitting Balance Ability Good Dynamic Sitting Balance Ability Good Standing Balance Static Standing Balance Ability Poor Dynamic Standing Balance Ability Poor Device Used None Balance Tests De Oliveira Balance Test De Oliveira Balance Test Score 34/56 De Oliveira Impairment Rating 20 to 39% Impaired (Score 34- 44) De Oliveira Balance Assessment Evaluation Sitting to Standing Ability Independent w/Hands Unsupported Stance 30 seconds Sitting Unsupported, Feet on Floor Safely- 2 minutes Standing to Sitting Ability Assist, Use Legs on Chair Transfer Ability Safely, Hand Use Unsupported Stance- Eyes Closed Supervision, 10 seconds Unsupported Stance- Eyes Open Independent, <30 seconds Reaching Forward Standing Safely, 5 inches Pick- Up Object From Floor Supervision Look Behind Shoulder - Standing Shifts Weight Well Turning 360 Degrees Turns slowly, but safely Unsupported Stance, Alternating Feet on 2 Steps w/Minimum Assist Stair Unsupported Tandem Stance Small Step- 30 seconds Unilateral Leg Stance Unable,assist to not fall Total Score De Oliveira Total Score (out of 56 points) 34 De Oliveira Impairment Rating 20 to 39% Impaired (Score 34- 44) Henry Fall Scale Copyright Permission PT-OP-G Mobility & Gait Start: 06/05/24 10:33 Freq: Status: Active Protocol: Document 06/05/24 09:50 DCW (Rec: 06/05/24 10:40 DCW [id number]) OP Gait Assessment Gait Gait Assistance Required: Standby Assistance Assistive Devices Assistive Device None Gait Deviations General Gait Pattern Antalgic,Ataxic,Decreased Stride Length,Decreased Feet Clearance,Flexed Trunk,Wide Based Gait Factors Limiting Gait Function Factors Limiting Gait Function Decreased Activity Tolerance, Decreased Strength,Limited Range of Motion,Pain,Poor Balance,Poor Safety Awareness Comments Gait Comments Pt ambulates with bilateral toe out and a wide HARSHA. Exhibits trendelenberg gait pattern. Knees and hips remain flexed throughout gait. Decreased foot clearance, increased path deviation PT-OP-J Posture/Palpation/Skin Start: 06/05/24 15:13 Freq: Status: Active Protocol: Document 06/05/24 09:50 DCW (Rec: 06/05/24 15:14 DCW [id number]) Posture Evaluation Position Standing Evaluation View Lateral Head/C-Spine Posture Flexed T-Spine Posture Increased Kyphosis L-Spine Posture Flexed Hip Posture (L) Flexed,(R) Flexed Knee Posture (L) Excess Flexion,(R) Excess Flexion PT-OP-M Strength Start: 06/05/24 10:33 Freq: Status: Active Protocol: Document 06/05/24 09:50 DCW (Rec: 06/05/24 10:40 DCW [id number]) Hip Strength Hip Manual Muscle Testing Right Flexion (L2) 4 Good Extension (S1) 4- Good- Abduction 4- Good- Adduction 4- Good- External Rotation 4+ Good+ Internal Rotation 4+ Good+ Left Flexion (L2) 4 Good Extension (S1) 4- Good- Abduction 4- Good- Adduction 4- Good- External Rotation 4+ Good+ Internal Rotation 4+ Good+ Knee Strength Knee Manual Muscle Testing Right Flexion (S2) 4- Good- Extension (L3) 4 Good Left Flexion (S2) 4- Good- Extension (L3) 4 Good Ankle/Foot Strength Ankle and Foot Manual Muscle Testing Right Dorsiflexion (L4) 4 Good Left Dorsiflexion (L4) 3- Fair- PT-OP-Q Treatments Start: 06/05/24 10:33 Freq: Status: Active Protocol: Document 07/12/24 13:45 DCW (Rec: 07/12/24 14:26 DCW [id number]) Gym Equipment Shuttle Recovery Unilateral Squats Resistance 37# (One Teal) Bilateral Squats Resistance 62# (Two Teal) Therapeutic Exercises Supine Exercises Piriformis stretch Supine Exercise Name Knee to opposite chest - HEP review Side bilateral Other Exercises Resisted Ambulation Other Exercise Name Resisted Side-stepping Resistance Green loop Equipment Used BUE rail support Reps/Minutes down and back // bars Comments Mod VC's for toes pointed fwd, looking up, increase in step length Neuro Re-Education Treatment Balance Activities Cone Taps Details Cone taps Surface // bars Equipment two cones each foot, 1# Seferino Comments Limited UE support Hurdles Details Fwd and lateral Equipment // bars Tandem Details Tandem Ambulation Equipment // bars PT-OP-T Assessment and Plan Start: 06/05/24 10:33 Freq: Status: Active Protocol: Document 07/12/24 13:45 DCW (Rec: 07/12/24 14:26 DCW [id number]) Physical Therapy Assessment Impairments Impairments Activity Tolerance,Balance, Functional Activities, Functional Mobility,Gait, Strength,Transfers Goals Three Impairment Pt posture in standing constant hip and knee flexion Usp Goal (LTG) Pt to stand with fully extended hips and knees 50% of the time without cues in order to decrease retro lean. LTG Duration 08/05/24 Two Impairment Pt presents with DGI score of 34/56, indicating an increased risk of falls Usp Goal (LTG) Pt to improve DGI score by at least seven points to 41/56, in order to demonstrate a decreased risk of falls LTG Duration 08/05/24 One Impairment Pt does not have an appropriate home exercise program Short Term Goal (STG) Pt to be independent and compliant with an appropriate HEP STG Duration 07/05/24 Assessment Summary Assessment Pt reports he has been trying to do his HEP if he remembers, provided a new handout for hip stretches. Noting some slight overall improvements with stability and gait. Physical Therapy Plan Frequency and Duration Frequency of Treatment 2x/Week Plan of Care Start Date 06/05/24 Plan of Care End Date 08/05/24 Therapeutic Interventions Therapeutic Interventions Balance Training,Gait Training ,Home Exercise Program,Joint Mobilizations,Manual Therapy, Neuromuscular Re-education, Patient/Caregiver Education, Self-Care/Home Management,Soft Tissue Mobilization, Therapeutic Activities, Therapeutic Exercises Modalities Cold Pack/Ice Massage,Hot Packs Next Visit Focus/Plan Next Note Type Treatment Note Next Visit Plan Next: Work on transferring from floor (supine) to standing with no chair assistance. Hurdles outside of //bar (with a gait belt) to decrease use of UE support. POC: Hip/knee flexibility, LE strengthening, balance challenges, gait training
--- NOTE | 2024-07-17 08:58 | PT.OTN ---
Current Diagnoses Muscle weakness (generalized) (07/17/24) Unsteadiness on feet (07/17/24) Other abnormalities of gait and mobility (07/17/24) Unspecified abnormalities of gait and mobility (07/17/24) Physical Therapy Treatment Note PT-OP-A Visit Information Start: 06/05/24 10:33 Freq: Status: Active Protocol: Document 07/17/24 08:18 PG (Rec: 07/17/24 10:21 PG Laptop) Out-Patient Physical Therapy Visit Information Visit Information Visit Type Treatment Note Visit Note DOLLY Clay led tx w permission of pt and direct supervision of Carmen IGNACIO. Visit Start Time 08:18 Visit Stop Time 08:58 Visit Number 9 Number of FORESTRY WORKERS Visits 1 Evaluation Information Evaluation Date 06/05/24 PT-OP-B Current Condition Start: 06/05/24 10:33 Freq: Status: Active Protocol: Document 06/05/24 09:50 DCW (Rec: 06/05/24 15:04 DCW [id number]) Current Condition History of Current Condition Onset Date One year history Current Complaints Decreased ambulation and balance ability History of Current Condition Pt is a 69 year old male presenting with a one year history of decreased balance and difficulty ambulating. Pt' s main focus in ongoing left hip problems, with his hip being sore and weak, strongly feels he needs a hip replacement, but he reports his ortho will not agree to do one, for unknown reasons. Pt denies use of any assistive devices, feels that his balance varies a lot day to day. Feels he is fine some days, and other days he can barely move. Has a tendency to retro lean in standing. PT-OP-C Subjective Start: 06/05/24 10:33 Freq: Status: Active Protocol: Document 07/17/24 08:18 PG (Rec: 07/17/24 10:21 PG Laptop) OP-PT Subjective Patient Comments Patient Comments Pt states he is feeling better today then he has in the past , says how he is feeling comes in waves. PT-OP-D Balance Start: 06/05/24 10:33 Freq: Status: Active Protocol: Document 06/05/24 09:50 DCW (Rec: 06/05/24 10:37 DCW [id number]) OP-PT Balance Assessment Sitting Balance Static Sitting Balance Ability Good Dynamic Sitting Balance Ability Good Standing Balance Static Standing Balance Ability Poor Dynamic Standing Balance Ability Poor Device Used None Balance Tests De Oliveira Balance Test De Oliveira Balance Test Score 34/56 De Oliveira Impairment Rating 20 to 39% Impaired (Score 34- 44) De Oliveira Balance Assessment Evaluation Sitting to Standing Ability Independent w/Hands Unsupported Stance 30 seconds Sitting Unsupported, Feet on Floor Safely- 2 minutes Standing to Sitting Ability Assist, Use Legs on Chair Transfer Ability Safely, Hand Use Unsupported Stance- Eyes Closed Supervision, 10 seconds Unsupported Stance- Eyes Open Independent, <30 seconds Reaching Forward Standing Safely, 5 inches Pick- Up Object From Floor Supervision Look Behind Shoulder - Standing Shifts Weight Well Turning 360 Degrees Turns slowly, but safely Unsupported Stance, Alternating Feet on 2 Steps w/Minimum Assist Stair Unsupported Tandem Stance Small Step- 30 seconds Unilateral Leg Stance Unable,assist to not fall Total Score De Oliveira Total Score (out of 56 points) 34 De Oliveira Impairment Rating 20 to 39% Impaired (Score 34- 44) Henry Fall Scale Copyright Permission PT-OP-G Mobility & Gait Start: 06/05/24 10:33 Freq: Status: Active Protocol: Document 06/05/24 09:50 DCW (Rec: 06/05/24 10:40 DCW [id number]) OP Gait Assessment Gait Gait Assistance Required: Standby Assistance Assistive Devices Assistive Device None Gait Deviations General Gait Pattern Antalgic,Ataxic,Decreased Stride Length,Decreased Feet Clearance,Flexed Trunk,Wide Based Gait Factors Limiting Gait Function Factors Limiting Gait Function Decreased Activity Tolerance, Decreased Strength,Limited Range of Motion,Pain,Poor Balance,Poor Safety Awareness Comments Gait Comments Pt ambulates with bilateral toe out and a wide HARSHA. Exhibits trendelenberg gait pattern. Knees and hips remain flexed throughout gait. Decreased foot clearance, increased path deviation PT-OP-J Posture/Palpation/Skin Start: 06/05/24 15:13 Freq: Status: Active Protocol: Document 06/05/24 09:50 DCW (Rec: 06/05/24 15:14 DCW [id number]) Posture Evaluation Position Standing Evaluation View Lateral Head/C-Spine Posture Flexed T-Spine Posture Increased Kyphosis L-Spine Posture Flexed Hip Posture (L) Flexed,(R) Flexed Knee Posture (L) Excess Flexion,(R) Excess Flexion PT-OP-M Strength Start: 04/02/25 10:33 Freq: Status: Active Protocol: Document 06/05/24 09:50 DCW (Rec: 06/05/24 10:40 DCW [id number]) Hip Strength Hip Manual Muscle Testing Right Flexion (L2) 4 Good Extension (S1) 4- Good- Abduction 4- Good- Adduction 4- Good- External Rotation 4+ Good+ Internal Rotation 4+ Good+ Left Flexion (L2) 4 Good Extension (S1) 4- Good- Abduction 4- Good- Adduction 4- Good- External Rotation 4+ Good+ Internal Rotation 4+ Good+ Knee Strength Knee Manual Muscle Testing Right Flexion (S2) 4- Good- Extension (L3) 4 Good Left Flexion (S2) 4- Good- Extension (L3) 4 Good Ankle/Foot Strength Ankle and Foot Manual Muscle Testing Right Dorsiflexion (L4) 4 Good Left Dorsiflexion (L4) 3- Fair- PT-OP-Q Treatments Start: 06/05/24 10:33 Freq: Status: Active Protocol: Document 07/17/24 08:18 PG (Rec: 07/17/24 10:21 PG Laptop) Gym Equipment Shuttle Recovery Unilateral Squats Details verb/tactile cues for increased ROM, TKE but not lock<> bend Resistance 37# (One Teal) Reps/Time 1x10 each Bilateral Squats Details verb/tactile cues for full ROM , TKE but not locked <> bend Resistance 50# > 62# (Two Teal) Reps/Time 1x10 >3x5 Therapeutic Exercises Standing Exercises STS Standing Exercise Name Added to HEP w HO - using chair to push off/reach, chair infront for safety Equipment Used mesh chair Reps/Minutes x10 Comments cued for posture when standing , slow eccentric control when sitting Neuro Re-Education Treatment Balance Activities Hurdles Details Fwd and lateral Equipment 4 hurdles Reps/Duration down and back x2 each Comments Cued for step to gait pattern, toes in neutral alignment, tall posture, lifting RLE over eduardo, not swinging it around. CGA - Sandoval: 0-5% SLS Details Modified SLS: 1LE on box/1LE on floor (head nods, EO/EC) Surface floor Equipment 6inch wooden box, //bars Comments Cues to stand tall, use no UE support, extend knee on floor. More challenging with RLE > LLE. CGA - Sandoval: 0-10% when RLE on floor or EC with either LE's. PT-OP-T Assessment and Plan Start: 06/05/24 10:33 Freq: Status: Active Protocol: Document 07/17/24 08:18 PG (Rec: 07/17/24 10:21 PG Laptop) Physical Therapy Assessment Rehab Potential Rehabilitation Potential Fair Evaluation Complexity Number of Personal Factors/Comorbidities 3 or More Number of Body Systems Impaired 4 or More Clinical Presentation at Evaluation Unstable Impairments Impairments Activity Tolerance,Balance, Functional Activities, Functional Mobility,Gait, Strength,Transfers Goals Three Impairment Pt posture in standing constant hip and knee flexion Accounts Administrator Goal (LTG) Pt to stand with fully extended hips and knees 50% of the time without cues in order to decrease retro lean. LTG Duration 08/05/24 Two Impairment Pt presents with DGI score of 34/56, indicating an increased risk of falls Accounts Administrator Goal (LTG) Pt to improve DGI score by at least seven points to 41/56, in order to demonstrate a decreased risk of falls LTG Duration 08/05/24 One Impairment Pt does not have an appropriate home exercise program Short Term Goal (STG) Pt to be independent and compliant with an appropriate HEP STG Duration 07/05/24 Assessment Summary Assessment Provided pt with new STS HEP exercise (HO provided) to work on LE strengthening and activity tolerance. Continued working on big steps/hip flexion, foot clearance, and increased time in SLS with walking through hurdles outside of the //bars today to decrease pt's reliance on UE support. Pt tolerated well with some hesitancy due to confidence. Required CGA - Sandoval: 0-5% from SPTA and verbal encouragement, pt stated he felt the challenge was partly mental. Observed difficulty in lifting RLE > LLE over the hurdles. Trialed modified SLS using a step in the //bars to continue working on balance with less UE support. Pt required cues for posture and knee extension with stance leg, worked on head nods, EO/EC. Pt requried Sandoval: 5% with EC. Physical Therapy Plan Frequency and Duration Frequency of Treatment 2x/Week Plan of Care Start Date 06/05/24 Plan of Care End Date 08/05/24 Therapeutic Interventions Therapeutic Interventions Balance Training,Gait Training ,Home Exercise Program,Joint Mobilizations,Manual Therapy, Neuromuscular Re-education, Patient/Caregiver Education, Self-Care/Home Management,Soft Tissue Mobilization, Therapeutic Activities, Therapeutic Exercises Modalities Cold Pack/Ice Massage,Hot Packs Next Visit Focus/Plan Next Note Type Treatment Note Next Visit Plan Next: Prog Note in 2 visits? Work on transferring from floor (supine) to standing with no chair assistance. Continue working on hurdles outside of //bar (with a gait belt) to decrease use of UE support. Check in with pt on compliance of HEP. POC: Hip/knee flexibility, LE strengthening, balance challenges, gait training
--- NOTE | 2024-07-19 08:59 | PT.OTN ---
Current Diagnoses Muscle weakness (generalized) (07/19/24) Unsteadiness on feet (07/19/24) Other abnormalities of gait and mobility (07/19/24) Unspecified abnormalities of gait and mobility (07/19/24) Physical Therapy Treatment Note PT-OP-A Visit Information Start: 06/05/24 10:33 Freq: Status: Active Protocol: Document 07/19/24 08:19 PG (Rec: 07/19/24 09:24 PG Laptop) Out-Patient Physical Therapy Visit Information Visit Information Visit Type Treatment Note Visit Note DOLLY Clay led tx w permission of pt and direct supervision of Carmen IGNACIO. Visit Start Time 08:19 Visit Stop Time 08:59 Visit Number 10 Number of DONOR RELATIONS ASSOCIATE Visits 2 Evaluation Information Evaluation Date 06/05/24 PT-OP-B Current Condition Start: 06/05/24 10:33 Freq: Status: Active Protocol: Document 06/05/24 09:50 DCW (Rec: 06/05/24 15:04 DCW [id number]) Current Condition History of Current Condition Onset Date One year history Current Complaints Decreased ambulation and balance ability History of Current Condition Pt is a 69 year old male presenting with a one year history of decreased balance and difficulty ambulating. Pt' s main focus in ongoing left hip problems, with his hip being sore and weak, strongly feels he needs a hip replacement, but he reports his ortho will not agree to do one, for unknown reasons. Pt denies use of any assistive devices, feels that his balance varies a lot day to day. Feels he is fine some days, and other days he can barely move. Has a tendency to retro lean in standing. PT-OP-C Subjective Start: 06/05/24 10:33 Freq: Status: Active Protocol: Document 07/19/24 08:19 PG (Rec: 07/19/24 09:24 PG Laptop) OP-PT Subjective Patient Comments Patient Comments Pt states he is in a good mood today. Pt reports that he tried to do a few of his STS exercises but didn't do many, asked if he put his HEP HO somewhere he will see it often , he claims he did. Pt got an at home exercises unit that does UE and LE (but couldn't give much more detail) and is pretty compact, asked him to take a picture and show us next tx. PT-OP-D Balance Start: 06/05/24 10:33 Freq: Status: Active Protocol: Document 06/05/24 09:50 DCW (Rec: 06/05/24 10:37 DCW [id number]) OP-PT Balance Assessment Sitting Balance Static Sitting Balance Ability Good Dynamic Sitting Balance Ability Good Standing Balance Static Standing Balance Ability Poor Dynamic Standing Balance Ability Poor Device Used None Balance Tests De Oliveira Balance Test De Oliveira Balance Test Score 34/56 De Oliveira Impairment Rating 20 to 39% Impaired (Score 34- 44) De Oliveira Balance Assessment Evaluation Sitting to Standing Ability Independent w/Hands Unsupported Stance 30 seconds Sitting Unsupported, Feet on Floor Safely- 2 minutes Standing to Sitting Ability Assist, Use Legs on Chair Transfer Ability Safely, Hand Use Unsupported Stance- Eyes Closed Supervision, 10 seconds Unsupported Stance- Eyes Open Independent, <30 seconds Reaching Forward Standing Safely, 5 inches Pick- Up Object From Floor Supervision Look Behind Shoulder - Standing Shifts Weight Well Turning 360 Degrees Turns slowly, but safely Unsupported Stance, Alternating Feet on 2 Steps w/Minimum Assist Stair Unsupported Tandem Stance Small Step- 30 seconds Unilateral Leg Stance Unable,assist to not fall Total Score De Oliveira Total Score (out of 56 points) 34 De Oliveira Impairment Rating 20 to 39% Impaired (Score 34- 44) Henry Fall Scale Copyright Permission PT-OP-G Mobility & Gait Start: 06/05/24 10:33 Freq: Status: Active Protocol: Document 06/05/24 09:50 DCW (Rec: 06/05/24 10:40 DCW [id number]) OP Gait Assessment Gait Gait Assistance Required: Standby Assistance Assistive Devices Assistive Device None Gait Deviations General Gait Pattern Antalgic,Ataxic,Decreased Stride Length,Decreased Feet Clearance,Flexed Trunk,Wide Based Gait Factors Limiting Gait Function Factors Limiting Gait Function Decreased Activity Tolerance, Decreased Strength,Limited Range of Motion,Pain,Poor Balance,Poor Safety Awareness Comments Gait Comments Pt ambulates with bilateral toe out and a wide HARSHA. Exhibits trendelenberg gait pattern. Knees and hips remain flexed throughout gait. Decreased foot clearance, increased path deviation PT-OP-J Posture/Palpation/Skin Start: 06/05/24 15:13 Freq: Status: Active Protocol: Document 06/05/24 09:50 DCW (Rec: 06/05/24 15:14 DCW [id number]) Posture Evaluation Position Standing Evaluation View Lateral Head/C-Spine Posture Flexed T-Spine Posture Increased Kyphosis L-Spine Posture Flexed Hip Posture (L) Flexed,(R) Flexed Knee Posture (L) Excess Flexion,(R) Excess Flexion PT-OP-M Strength Start: 06/05/24 10:33 Freq: Status: Active Protocol: Document 06/05/24 09:50 DCW (Rec: 06/05/24 10:40 DCW [id number]) Hip Strength Hip Manual Muscle Testing Right Flexion (L2) 4 Good Extension (S1) 4- Good- Abduction 4- Good- Adduction 4- Good- External Rotation 4+ Good+ Internal Rotation 4+ Good+ Left Flexion (L2) 4 Good Extension (S1) 4- Good- Abduction 4- Good- Adduction 4- Good- External Rotation 4+ Good+ Internal Rotation 4+ Good+ Knee Strength Knee Manual Muscle Testing Right Flexion (S2) 4- Good- Extension (L3) 4 Good Left Flexion (S2) 4- Good- Extension (L3) 4 Good Ankle/Foot Strength Ankle and Foot Manual Muscle Testing Right Dorsiflexion (L4) 4 Good Left Dorsiflexion (L4) 3- Fair- PT-OP-Q Treatments Start: 06/05/24 10:33 Freq: Status: Active Protocol: Document 07/19/24 08:19 PG (Rec: 07/19/24 09:24 PG Laptop) Gym Equipment Shuttle Recovery Unilateral Squats Details verb/tactile cues for increased ROM, TKE but not lock<> bend Resistance 37# (One Teal) Reps/Time 1x10 each Bilateral Squats Details verb/tactile cues for full ROM , TKE but not locked <> bend Resistance 50# > 62# (Two Teal) Reps/Time 1x10 >3x5 Therapeutic Exercises Standing Exercises HS curls Side bilateral Resistance 2# ankle weights Equipment Used BUE on railing Reps/Minutes x10 each leg Comments cues to keep thigh stationed, lifting foot toward bottom Neuro Re-Education Treatment Balance Activities Cone Taps Details Cone taps Surface floor Equipment 3 cones, 2# AW's, railing Comments No UE support, CGA - 5%A from SPTA Tandem Walking Details Trialed along railing Surface floor Equipment railing for 1UE support Comments Pt had difficult time getting tandem position and alternating w/o losing balance / leaning into railing, DC. Hurdles Details Fwd and lateral Equipment 3 hurdles Reps/Duration down and back x4 each Comments Cued for no UE support, motor planning, step to gait pattern , toes in neutral alignment, tall posture, lifting RLE over eduardo, not swinging it around. CGA - 5%A Tandem Details Tandem Stance Comments Cues to weight shift into both feet. ModA: 30% from SPTA when pt has no UE support PT-OP-T Assessment and Plan Start: 06/05/24 10:33 Freq: Status: Active Protocol: Document 07/19/24 08:19 PG (Rec: 07/19/24 09:24 PG Laptop) Physical Therapy Assessment Rehab Potential Rehabilitation Potential Fair Evaluation Complexity Number of Personal Factors/Comorbidities 3 or More Number of Body Systems Impaired 4 or More Clinical Presentation at Evaluation Unstable Impairments Impairments Activity Tolerance,Balance, Functional Activities, Functional Mobility,Gait, Strength,Transfers Goals Three Impairment Pt posture in standing constant hip and knee flexion Christmas Tree Grader Goal (LTG) Pt to stand with fully extended hips and knees 50% of the time without cues in order to decrease retro lean. LTG Duration 08/05/24 Two Impairment Pt presents with DGI score of 34/56, indicating an increased risk of falls Christmas Tree Grader Goal (LTG) Pt to improve DGI score by at least seven points to 41/56, in order to demonstrate a decreased risk of falls LTG Duration 08/05/24 One Impairment Pt does not have an appropriate home exercise program Short Term Goal (STG) Pt to be independent and compliant with an appropriate HEP STG Duration 07/05/24 Assessment Summary Assessment Pt presents with shuffled gait and excessive out toeing when entering tx. Continued working on LE strengthening and balance activities to help with gait. Cues while working in hurdles and on leg press for neutral foot alignment. Improved lateral walking through hurdles with just CGA and cues for motor planning to allow room for both feet when stepping over the hurdles. Pt continues to be hesitant when leading with R LE going forward through hurdles but demonstrated increased confidence with no UE support and only CG - 5%A from SPTA. Physical Therapy Plan Frequency and Duration Frequency of Treatment 2x/Week Plan of Care Start Date 06/05/24 Plan of Care End Date 08/05/24 Therapeutic Interventions Therapeutic Interventions Balance Training,Gait Training ,Home Exercise Program,Joint Mobilizations,Manual Therapy, Neuromuscular Re-education, Patient/Caregiver Education, Self-Care/Home Management,Soft Tissue Mobilization, Therapeutic Activities, Therapeutic Exercises Modalities Cold Pack/Ice Massage,Hot Packs Next Visit Focus/Plan Next Note Type Treatment Note Next Visit Plan Next: Prog Note in 1 visit? Work on transferring from floor (supine) to standing with no chair assistance. LAQ 's and walking backwards for knee/hip ext strengthening. Continue to check in with pt on compliance of HEP. POC: Hip/knee flexibility, LE strengthening, balance challenges, gait training
--- NOTE | 2024-07-25 10:22 | PT-OP ANOTE ---
Pt arrived for am appt, stated was really tired slept for 15 hrs, not sure why and couldn't make last tx and why had to cancel. He was agreeable and stated will try to come to 415 pm appt for PN with PT. METER AND SERVICE LINE INSPECTOR encouraged importance of PN with PT for update progression, pt verbalized understanding, states not sure how much will need to come.
--- NOTE | 2024-07-30 14:13 | PT-OP ANOTE ---
Addendum entered and electronically signed by Carmen Shaw, SANDEE 07/30/24 14:33: Pt did not return call to reschedule for later appt today. Pt responded today via automated text system to cancel this Th appt, last appt scheduled. Original Note: Pt did not show up for 8:15am appt this morning. Tried to call immediately and left VM to see if they were on their way or could reschedule with THANIA Coombs at his 11:30 opening for progress note. Spoke with PT, Malvin and he will most likely discharge pt.
--- NOTE | 2024-12-24 15:58 | PT.OPDS ---
Current Diagnoses Muscle weakness (generalized) (07/19/24) Unsteadiness on feet (07/19/24) Other abnormalities of gait and mobility (07/19/24) Unspecified abnormalities of gait and mobility (07/19/24) Visit Care Team Role Provider Type Aristides Ovalle MD Attending Provider Physician Family Provider Primary Care Provider Referring Provider Specialty: Internal Medicine Address: [address] [place] [address], [address], [facility] Email: [email or web address] Visit Number Visit Number 10 Discharge Summary PT-OP-A Visit Information Start: 06/05/24 10:33 Freq: Status: Active Protocol: Document 07/19/24 08:19 PG (Rec: 07/19/24 09:24 PG Laptop) Out-Patient Physical Therapy Visit Information Visit Information Visit Type Treatment Note Visit Note SPTA Danna led tx w permission of pt and direct supervision of Carmen IGNACIO. Visit Start Time 08:19 Visit Stop Time 08:59 Visit Number 10 Number of [employer] Visits 2 Evaluation Information Evaluation Date 06/05/24 PT-OP-B Current Condition Start: 06/05/24 10:33 Freq: Status: Active Protocol: Document 06/05/24 09:50 DCW (Rec: 06/05/24 15:04 DCW [id number]) Current Condition History of Current Condition Onset Date One year history Current Complaints Decreased ambulation and balance ability History of Current Pt is a 69 year old male presenting with a one year Condition history of decreased balance and difficulty ambulating. Pt's main focus in ongoing left hip problems, with his hip being sore and weak, strongly feels he needs a hip replacement, but he reports his ortho will not agree to do one, for unknown reasons. Pt denies use of any assistive devices, feels that his balance varies a lot day to day. Feels he is fine some days, and other days he can barely move. Has a tendency to retro lean in standing. PT-OP-C Subjective Start: 06/05/24 10:33 Freq: Status: Active Protocol: Document 07/19/24 08:19 PG (Rec: 07/19/24 09:24 PG Laptop) OP-PT Subjective Patient Comments Patient Comments Pt states he is in a good mood today. Pt reports that he tried to do a few of his STS exercises but didn't do many, asked if he put his HEP HO somewhere he will see it often, he claims he did. Pt got an at home exercises unit that does UE and LE (but couldn't give much more detail) and is pretty compact, asked him to take a picture and show us next tx. PT-OP-D Balance Start: 06/05/24 10:33 Freq: Status: Active Protocol: Document 06/05/24 09:50 DCW (Rec: 06/05/24 10:37 DCW [id number]) OP-PT Balance Assessment Sitting Balance Static Sitting Good Balance Ability Dynamic Sitting Good Balance Ability Standing Balance Static Standing Poor Balance Ability Dynamic Standing Poor Balance Ability Device Used None Balance Tests De Oliveira Balance Test De Oliveira Balance Test 34/56 Score De Oliveira Impairment 20 to 39% Impaired (Score 34-44) Rating De Oliveira Balance Assessment Evaluation Sitting to Standing Independent w/Hands Ability Unsupported Stance 30 seconds Sitting Unsupported, Safely- 2 minutes Feet on Floor Standing to Sitting Assist, Use Legs on Chair Ability Transfer Ability Safely, Hand Use Unsupported Stance- Supervision, 10 seconds Eyes Closed Unsupported Stance- Independent, <30 seconds Eyes Open Reaching Forward Safely, 5 inches Standing Pick- Up Object From Supervision Floor Look Behind Shoulder Shifts Weight Well - Standing Turning 360 Degrees Turns slowly, but safely Unsupported Stance, 2 Steps w/Minimum Assist Alternating Feet on Stair Unsupported Tandem Small Step- 30 seconds Stance Unilateral Leg Unable,assist to not fall Stance Total Score De Oliveira Total Score ( 34 out of 56 points) De Oliveira Impairment 20 to 39% Impaired (Score 34-44) Rating Henry Fall Scale Copyright Permission PT-OP-G Mobility & Gait Start: 06/05/24 10:33 Freq: Status: Active Protocol: Document 06/05/24 09:50 DCW (Rec: 06/05/24 10:40 DCW [id number]) OP Gait Assessment Gait Gait Assistance Standby Assistance Required: Assistive Devices Assistive Device None Gait Deviations General Gait Pattern Antalgic,Ataxic,Decreased Stride Length,Decreased Feet Clearance,Flexed Trunk,Wide Based Gait Factors Limiting Gait Function Factors Limiting Decreased Activity Tolerance,Decreased Strength,Limited Gait Function Range of Motion,Pain,Poor Balance,Poor Safety Awareness Comments Gait Comments Pt ambulates with bilateral toe out and a wide HARSHA. Exhibits trendelenberg gait pattern. Knees and hips remain flexed throughout gait. Decreased foot clearance , increased path deviation PT-OP-J Posture/Palpation/Skin Start: 06/05/24 15:13 Freq: Status: Active Protocol: Document 06/05/24 09:50 DCW (Rec: 06/05/24 15:14 DCW [id number]) Posture Evaluation Position Standing Evaluation View Lateral Head/C-Spine Posture Flexed T-Spine Posture Increased Kyphosis L-Spine Posture Flexed Hip Posture (L) Flexed,(R) Flexed Knee Posture (L) Excess Flexion,(R) Excess Flexion PT-OP-M Strength Start: 06/05/24 10:33 Freq: Status: Active Protocol: Document 06/05/24 09:50 DCW (Rec: 06/05/24 10:40 DCW [id number]) Hip Strength Hip Manual Muscle Testing Right Flexion (L2) 4 Good Extension (S1) 4- Good- Abduction 4- Good- Adduction 4- Good- External Rotation 4+ Good+ Internal Rotation 4+ Good+ Left Flexion (L2) 4 Good Extension (S1) 4- Good- Abduction 4- Good- Adduction 4- Good- External Rotation 4+ Good+ Internal Rotation 4+ Good+ Knee Strength Knee Manual Muscle Testing Right Flexion (S2) 4- Good- Extension (L3) 4 Good Left Flexion (S2) 4- Good- Extension (L3) 4 Good Ankle/Foot Strength Ankle and Foot Manual Muscle Testing Right Dorsiflexion (L4) 4 Good Left Dorsiflexion (L4) 3- Fair- PT-OP-T Assessment and Plan Start: 06/05/24 10:33 Freq: Status: Active Protocol: Document 12/24/24 15:57 DCW (Rec: 12/24/24 15:58 DCW [id number]) Physical Therapy Assessment Assessment Summary Assessment Pt did not show up to last few appointments, then did not call to schedule more. Pt has currently not been seen in more than five months, will be discharged from skilled therapy at this time. Physical Therapy Plan Discharge Physical Therapy Discharge Reasons No Longer Attending PT Next Visit Focus/Plan Next Note Type Discharge Summary
== END 2024-12-25 10:55 | disposition home or self-care (01) ==
LOC: PHYS 08:15
PROVIDERS: Family Provider Internal Medicine; PCP Internal Medicine; Referring Provider Internal Medicine; Visit Provider Internal Medicine
DX: R26.9 Unspecified abnormalities of gait and mobility (principal); R26.89 Other abnormalities of gait and mobility; M62.81 Muscle weakness (generalized); R26.81 Unsteadiness on feet
CPT/HCPCS: 97110; 97112; 97163; 97530

== ENCOUNTER → 2024-09-18 08:45 | Outpatient (CLI) | payer MEDICARE, OTHER, SELFPAY ==
[2023-04-17 04:32] VITALS: BMI 20.9
--- NOTE | 2024-09-18 08:47 | DI.MRI.S_ITS ---
PROCEDURE: MR CERVICAL SPINE WO CON INDICATIONS: unspecified abnormalities of gait and mobility TECHNIQUE: Noncontrast sagittal T1 spin echo and T2 fast spin echo, sagittal STIR, foraminal oblique sagittal T2 fast spin echo, and axial gradient echo or T2 fast spin echo through the cervical spine. COMPARISON: None. FINDINGS: Image quality: Excellent. Alignment and Curvature: Straightening of the normal cervical lordosis. Minimal anterolisthesis of C3 on C4 and C7 on T1. Bone Marrow: Mild degenerative endplate changes. Marrow demonstrates normal overall signal. Spinal Cord: Visualized spinal cord has normal size and signal. No cerebellar tonsillar herniation. Paraspinous Soft Tissues: No paravertebral masses. Prevertebral soft tissues are normal in thickness. C2-C3: Normal appearance. C3-C4: Disc desiccation and posterior disc osteophyte complex. Facet and uncovertebral arthropathy. Moderate bilateral neural foraminal stenosis. No central canal stenosis. C4-C5: Disc desiccation. Facet and uncovertebral arthropathy. No significant central canal stenosis. [id number] bilateral neural foraminal stenosis. C5-C6: Disc desiccation and moderate height loss. Posterior disc osteophyte complex. Facet uncovertebral arthropathy. Mild central canal stenosis. Severe right and moderate left neural foraminal stenosis. C6-C7: Disc desiccation and mild height loss. Posterior disc osteophyte complex. Facet and uncovertebral arthropathy. Mild central canal stenosis. Moderate bilateral neural foraminal stenosis. C7-T1: Disc desiccation. Facet and uncovertebral arthropathy. No central canal stenosis. Moderate right and no left neural foraminal stenosis. IMPRESSION: 1. Multilevel degenerative changes of the cervical spine as described above. 2. Mild central canal stenosis at C5-C6 and C6-C7. 3. Severe neural foraminal stenosis on the right at C5-C6. Multilevel mild and moderate neural foraminal stenosis at other levels. Dictated by: Markos Coe M.D. on 09/18/2024 at 12:03 Approved by: Markos Coe M.D. on 09/18/2024 at 12:09
--- NOTE | 2024-09-18 08:47 | DI.MRI.S_ITS ---
PROCEDURE: MR HEAD/BRAIN WO CON INDICATIONS: unspecified abnormalities of gait and mobility TECHNIQUE: Non-contrast axial T1 spin echo, axial T2 fast spin echo, sagittal and axial FLAIR, coronal T2 fast spin echo, axial gradient echo, axial diffusion and ADC through the brain. COMPARISON: [facility], MR, MR STROKE, 05/09/2023, 8:07. FINDINGS: Image quality: Excellent. CSF spaces: Ventricles appear symmetric in size and shape. Basal cisterns are patent. No extra-axial fluid collections. Brain: No intracranial bleeds or mass effects. There is cerebral volume loss for age. There are periventricular and deep white matter chronic small vessel ischemic changes including within the brainstem. Diffusion-weighted images show no acute infarct. No chronic ischemic insults. Normal intravascular flow voids are present. Skull and face: Calvarial bone marrow is normal in signal. Bilateral lens replacements. Otherwise, the orbits are unremarkable. Sinuses: Sinuses and mastoids are clear. IMPRESSION: Age-related global volume loss and moderate chronic microvascular ischemic changes. No acute or subacute infarct. No acute intracranial abnormalities. Dictated by: Markos Coe M.D. on 09/18/2024 at 11:58 Approved by: Markos Coe M.D. on 09/18/2024 at 12:03
== END ==
PROVIDERS: PCP Internal Medicine; Referring Provider Student in an Organized Health Care Education/Training Program; Visit Provider Student in an Organized Health Care Education/Training Program
DX: R26.9 Unspecified abnormalities of gait and mobility (principal); M47.812 Spondylosis without myelopathy or radiculopathy, cervical region; M48.02 Spinal stenosis, cervical region
CPT/HCPCS: 70551; 72141

== ENCOUNTER → 2024-11-11 06:52 | Outpatient (CLI) | payer MEDICARE, OTHER, SELFPAY ==
[2023-04-17 04:32] VITALS: BMI 20.9
[2024-11-11 09:01] LABS: Hemoglobin A1C% w Est Avg Glu 8.3 % (4.0-6.0)
[2024-11-11 09:08] LABS: Alanine Aminotransferase 13 IU/L (<50); Albumin 4.3 g/dL (3.5-5.0); Albumin Globulin Ratio 1.7 (1.0-2.8); Alkaline Phosphatase 69 U/L (38-126); Blood Urea Nitrogen 13 mg/dL (9-20); Calcium 9.8 mg/dL (8.4-10.2); Carbon Dioxide 27 mmol/L (22-32); Chloride 102 mmol/L (98-107); Cholesterol 115 mg/dL (140-199); Estimated Glomerular Filt Rate > 60 mL/min (>60); Globulin 2.5 g/dL (1.7-4.1); Glucose 132 mg/dL (70-99); HDL Cholesterol 37 mg/dL (40-60); HEMOLYSIS 17 (0-50); Potassium 4.9 mmol/L (3.4-5.1); Sodium 137 mmol/L (137-145); Total Protein 6.8 g/dL (6.3-8.2); Triglycerides 122 mg/dL (35-150)
== END ==
PROVIDERS: PCP Internal Medicine; Referring Provider Internal Medicine; Visit Provider Internal Medicine
DX: E11.9 Type 2 diabetes mellitus without complications (principal); I10 Essential (primary) hypertension; E78.2 Mixed hyperlipidemia
CPT/HCPCS: 36415; 80053; 80061; 83036

== ENCOUNTER → 2025-01-29 06:36 | Outpatient (CLI) | payer MEDICARE, OTHER, SELFPAY ==
[2023-04-17 04:32] VITALS: BMI 20.9
[2025-01-29 08:50] LABS: Hemoglobin A1C% w Est Avg Glu 7.3 % (4.0-6.0)
[2025-01-29 08:59] LABS: Blood Urea Nitrogen 16 mg/dL (9-20); Calcium 10.0 mg/dL (8.4-10.2); Carbon Dioxide 26 mmol/L (22-32); Chloride 104 mmol/L (98-107); Estimated Glomerular Filt Rate > 60 mL/min (>60); Glucose 121 mg/dL (70-99); HEMOLYSIS < 15 (0-50); Potassium 4.7 mmol/L (3.4-5.1); Sodium 141 mmol/L (137-145)
== END ==
PROVIDERS: PCP Internal Medicine; Referring Provider Internal Medicine; Visit Provider Internal Medicine
DX: E11.9 Type 2 diabetes mellitus without complications (principal); I10 Essential (primary) hypertension
CPT/HCPCS: 36415; 80048; 83036